=== PATIENT | male | born 1940 | race Caucasian/White ===

== ENCOUNTER 2019-03-01 17:24 | Inpatient (IN) | payer MEDICARE ==
[2019-03-01] MEDS ORDERED: NALOXONE 0.4 MG/ML 1 ML VIAL IV PRN (19:00)
--- NOTE | 2019-03-01 19:00 | ED ---
SOB HPI - General Chief Complaint: Shortness of Breath Stated Complaint: pleural effusion Time Seen by Provider: 03/01/19 17:56 Source: patient, EMS Mode of arrival: EMS Limitations: no limitations - History of Present Illness Initial Comments: 78-year-old male patient presents to the emergency department today as a transfer from [facility]. Patient presented today for evaluation of shortness of breath increasing over the last 4-5 days. He was found to have large right-sided pleural effusion requiring drainage however specialist was un available at the originating facility. Patient has history of right-sided pleural effusion since December which he has had drained twice in the last 6 weeks. Patient is unsure why the effusions keep occurring. He states that his breathing is currently improved with oxygen. He denies any pain to the chest. Denies any fever or chills with this. Denies any other symptoms or concerns. Patient denies any recent rash, abdominal pain, nausea, vomiting, diarrhea, constipation, back pain, numbness, tingling, dizziness, weakness, hematuria, dysuria, urinary urgency, urinary frequency, headache, visual changes, or any other complaints. - Related Data Home Medications Medication Instructions Recorded Confirmed Diltiazem HCl 30 mg PO TID 03/01/19 03/01/19 Famotidine [Pepcid] 20 mg PO AC-BID 03/01/19 03/01/19 Folic Acid 0.8 mg PO DAILY 03/01/19 03/01/19 Furosemide [Lasix] 40 mg PO BID PRN 03/01/19 03/01/19 Melatonin 5 mg PO HS 03/01/19 03/01/19 Metoprolol Tartrate [Lopressor] 12.5 mg PO BID PRN 03/01/19 03/01/19 Multivitamins, Thera [Multivitamin 1 tab PO DAILY 03/01/19 03/01/19 (formulary)] Vitamin B Complex/Folic Acid/Vit C 1 tab PO DAILY 03/01/19 03/01/19 Warfarin [Coumadin] 2.5 mg PO DAILY 03/01/19 03/01/19 Allergies Allergy/AdvReac Type Severity Reaction Status Date / Time No Known Allergies Allergy Verified 03/01/19 18:15 Review of Systems ROS Statement: Those systems with pertinent positive or pertinent negative responses have been documented in the HPI. ROS Other: All systems not noted in ROS Statement are negative. Past Medical History Past Medical History: Chest Pain / Angina, Eye Disorder, Myocardial Infarction ([place]), Pneumonia, Pulmonary Embolus ([place]) Additional Past Medical History / Comment(s): Thoracentesis X 2, History of Any Multi-Drug Resistant Organisms: None Reported Past Surgical History: Cardiac Ablation Additional Past Surgical History / Comment(s): Eye surgery. Past Psychological History: No Psychological Hx Reported Smoking Status: Former smoker Past Alcohol Use History: Occasional Past Drug Use History: None Reported General Exam Limitations: no limitations General appearance: alert, in no apparent distress, other (Physical well- developed, well-nourished elderly male patient in no acute distress. Vital signs upon presentation are temperature 98.1F, pulse 76, respirations 16, blood pressure 95/69, pulse ox 99% on room air.) Eye exam: Present: normal appearance, PERRL, EOMI. Absent: scleral icterus, conjunctival injection, periorbital swelling ENT exam: Present: normal exam, normal oropharynx, mucous membranes moist Respiratory exam: Present: decreased breath sounds (On the right side), other (Clear lung sounds on the left). Absent: normal lung sounds bilaterally, respiratory distress, wheezes, rales, rhonchi, stridor Cardiovascular Exam: Present: regular rate, normal rhythm, normal heart sounds. Absent: systolic murmur, diastolic murmur, rubs, gallop, clicks GI/Abdominal exam: Present: soft, normal bowel sounds. Absent: distended, tend erness, guarding, rebound, rigid Extremities exam: Present: normal inspection, full ROM, normal capillary refill, other (No edema). Absent: tenderness, pedal edema, joint swelling, calf tenderness Neurological exam: Present: alert, oriented X3, CN II-XII intact Psychiatric exam: Present: normal affect, normal mood Skin exam: Present: warm, dry, intact, normal color. Absent: rash Course Vital Signs 03/01/19 17:32 Temperature 98.1 F Pulse Rate 76 Respiratory 16 Rate Blood Pressure 95/69 O2 Sat by Pulse 99 Oximetry Medical Decision Making - Medical Decision Making 78-year-old male patient presented to the emergency department today for evaluation as a transfer from [facility] for a large right-sided pleural effusion requiring drainage. Physical examination did reveal decreased lung sounds on the right. Patient oxygen saturation is 95% on 2 L. He is currently in no respiratory distress. Labs reviewed from [facility] and showed a normal white blood cell count at 7.1. INR is 4.78, patient did receive 10 mg of vitamin K IV piggyback at [facility]. Troponin negative. We'll admit to the hospital for further evaluation and consult interventional radiology for drainage. I did discuss plan with the patient, he is agreeable. Disposition Clinical Impression: Recurrent right pleural effusion Disposition: ADMITTED IP TO THIS [facility] Condition: Serious Referrals: Natalio Salinas MD [Primary Care Provider] - 1-2 days Decision to Admit Reason: Admit from EC Decision Date: 03/01/19 Decision Time: 19:00
[2019-03-01] MEDS ORDERED: METOPROLOL TARTRATE 12.5 MG TAB PO PRN (19:02)
[2019-03-01] MEDS ORDERED: FUROSEMIDE 40 MG TAB PO PRN (19:02)
[2019-03-01] MEDS: MELATONIN 5 MG TABLET PO SCH (22:38)
[2019-03-01] MEDS: DILTIAZEM ORAL 30 MG TAB PO SCH (22:47)
[2019-03-02] MEDS: FOLIC ACID 1 MG TAB PO SCH (08:44)
[2019-03-02] MEDS: DILTIAZEM ORAL 30 MG TAB PO SCH ×3 (08:44→21:33)
[2019-03-02] MEDS: MULTIVITAMINS, THERA 1 EACH TAB PO SCH (08:44)
[2019-03-02] MEDS: FAMOTIDINE 20 MG TAB PO SCH ×2 (08:44→16:37)
[2019-03-02 08:59] LABS: INR 2.3 (<1.2); Prothrombin Time 22.3 sec (9.0-12.0)
[2019-03-02] MEDS ORDERED: ASCORBIC ACID PO SCH (09:00)
[2019-03-02] MEDS ORDERED: VITAMIN B COMPLEX PO SCH (09:00)
[2019-03-02] MEDS ORDERED: FOLIC ACID PO SCH (09:00)
[2019-03-02 09:09] LABS: ALT 36 U/L (21-72); AST 45 U/L (17-59); Albumin 3.5 g/dL (3.5-5.0); Alkaline Phosphatase 60 U/L (38-126); Anion Gap 7 mmol/L; Blood Urea Nitrogen 11 mg/dL (9-20); Carbon Dioxide 27 mmol/L (22-30); Chloride 104 mmol/L (98-107); Glucose 77 mg/dL (74-99); Potassium 3.4 mmol/L (3.5-5.1); Sodium 138 mmol/L (137-145); Total Bilirubin 2.2 mg/dL (0.2-1.3); Total Protein 6.5 g/dL (6.3-8.2)
[2019-03-02] MEDS ORDERED: PHYTONADIONE ORAL 5 MG/5 ML ORAL.SYRG PO STA (10:58)
--- NOTE | 2019-03-02 13:04 | US ---
EXAMINATION TYPE: US chest DATE OF EXAM: 03/02/2019 COMPARISON: NONE CLINICAL HISTORY: right pleural effusion. TECHNIQUE: Targeted ultrasound of the posterior lower EXAM MEASUREMENTS: Right Pleural Effusion pocket size: 6.9 cm Right skin surface to fluid distance: 2.7 cm Right side marked for possible thoracentesis outside the dept. Pulmonologists are able to review the images in the patient?s EMR. IMPRESSIONS: RIGHT-SIDED PLEURAL EFFUSION.
--- NOTE | 2019-03-02 19:06 | CONS ---
CONSULTATION This is a pulmonary/critical care consultation. DATE OF SERVICE: 03/02/2019 This is a patient who apparently presented to the emergency room here from [facility] via EMS for shortness of breath. He was apparently transferred here because they had nobody there that could drain the patient's chest. He apparently had a right-sided pleural effusion. Anyway, for the last couple days prior to admission, maybe 4 5 or so, he has had progressive increasing shortness of breath. For that reason, he went into the emergency room at [facility] was found to have a large right-sided pleural effusion and was transferred here to [facility]. The patient has had a couple of drainage procedures. I know I did 1 of them maybe 2. I believe we told him that the fluid reoccurred because of heart failure, although I do not have my office notes to know that for a fact. He denies any fever, chills. He is not coughing. Not producing any phlegm. No chest pain or chest discomfort. No GI or complaints. Actually looks relatively comfortable. He is sitting in bed. Oxygen in place. He is sitting upright in bed. His is with him. He does sort of remember me, but not fully. I believe my partner may have drained him once or attempted to drain him once but I am not totally sure about that. HOME MEDICATIONS: Include diltiazem, famotidine, folic acid, Lasix, melatonin, metoprolol, multivitamins, vitamin B complex, and warfarin. ALLERGIES: Denied. MEDICAL HISTORY: Chest pain/angina pectoris, myocardial infarction, pneumonia, pulmonary embolism, recurrent pleural effusion. SURGICAL HISTORY: Includes among other things a thoracentesis x2 and cardiac ablation. He has also had some eye surgery. SOCIAL HISTORY: Positive for previous tobacco use. He does not smoke currently. He drinks occasionally. No illicit drug use. FAMILY HISTORY: Not documented. REVIEW OF SYSTEMS: CONSTITUTIONAL: Negative. NEUROLOGIC: Negative. HEENT negative. CARDIOVASCULAR negative. PULMONARY: Shortness of breath. GI negative. negative. RHEUMATOLOGIC negative. IMMUNOLOGIC negative. ENDOCRINOLOGICAL: Negative. DERMATOLOGIC negative. PHYSICAL EXAMINATION: VITAL SIGNS: Current vital signs are reviewed. Temperature is 97.5, heart rate 77, respiratory rate 15, blood pressure 94/58. Mean 70, 2 L saturation 99%. Appears in no acute distress. HEENT examination is grossly unremarkable. Mucous membranes are moist. Nasal O2 in place. NECK: Supple. Full range of motion. No adenopathy or thyromegaly. Neck veins are flat. CARDIOVASCULAR: Examination reveals distant heart sounds. Regular rhythm and rate. Heart rate 77. No distinct murmur noted. LUNGS: Some significantly diminished breath sounds on the right. There is dullness at the right base. Left lung is clear. No wheezes, rhonchi, or crackles on the left side. ABDOMEN: Soft. Bowel sounds are heard. EXTREMITIES are intact. No significant cyanosis, clubbing, or edema. SKIN without rash. NEUROLOGIC examination is brief but nonfocal. LABS: Reviewed. He has got a PT of 22.3, INR 2.3. Sodium 138, potassium 3.4, chloride 104, CO2 27, anion gap is 7, which is normal. BUN and creatinine were 11 and 0.74. Total bilirubin is 2.2. No x-rays available. Ultrasound was ordered but not done as yet. Medications are reviewed. He is on Cardizem, famotidine, folic acid, Lasix, melatonin, metoprolol, multivitamins, Narcan. He got some vitamin K in the emergency room. We gave him some additional vitamin K today. ASSESSMENT: 1. Right-sided pleural effusion, recurrent. 2. History of angina. 3. Myocardial infarction. 4. Pneumonia. 5. Pulmonary embolism. 6. Status post cardiac ablation. 7. Thoracentesis thus far x2. PLAN: The patient's office notes will be reviewed. This will remind me as to why I thought he had a pleural effusion. We will also be able to hopefully load a chest x-ray. An ultrasound was ordered as well. In addition, he will have a daily PT/INR and he got some additional vitamin K as well. Additional recommendations and suggestions are forthcoming. Interventional Radiology was consulted to do thoracentesis. Either they will do it or I will do it. Additional recommendations and suggestions are forthcoming. He is in no distress at the current time. MMODL / IJN: [id number] /
[2019-03-02] MEDS: MELATONIN 5 MG TABLET PO SCH (21:32)
--- NOTE | 2019-03-02 22:56 | P.HPIM ---
History of Present Illness H&P Date: 03/02/19 Chief Complaint: Shortness of breath Mr. Begum is a 78-year-old male with a past medical history of congestive heart failure with ejection fraction of 20%, AICD placement, pulmonary embolism, myocardial infarction transferred from [facility] for large right-sided pleural effusion. Patient states that he has history of chronic right-sided pleural effusion and got thoracentesis done couple of times in December with 1 and 1.5 L of fluid removed. He follows with Dr. Hayes. He states that over the past 4-5 days his difficulty in breathing was worsening and yesterday he went to [facility]. There he was told that there is no specialist to drain the fluid out and so sent him here. Currently rates unsure why the patient has recurrent pleural effusions. Patient denies having any chest pain, no fever chills or rigors. Patient denies having any abdominal pain nausea vomiting or diarrhea. Patient denies having any tingling or numbness. No complaints of hematuria or dysuria. Patient states that he has congestive heart failure with ejection fraction of 20%, so he was told that he would not be a good candidate for pleurodesis. All 13 review of systems done and negative except for the ones mentioned above Review of Systems REVIEW OF SYSTEMS: PSYCH: No anxiety or depression NEURO:No c/o weakness of the extremties, No facial droop, No speech abnormalities. VASCULAR: No lower extremity swelling HEMATOLOGIC: No history of easy bleeding and bruising . No recent infections . RESPIRATORY: As per HPI IMMUNE: No recent infections INTEGUMENT: no rashes OPHTHALMOLOGIC: No blurry vision and no eye discharge : No dysuria or hematuria CARDIAC: No chest pain , shortness of breath , paroxysmal nocturnal dyspnea MUSCULOSKELETAL : No Aches or pains in the joints or muscles. GI: No abdominal pain, Nausea or vomiting. No constipation or diarrhea. Past Medical History Past Medical History: Chest Pain / Angina, Eye Disorder, Myocardial Infarction ([place]), Pneumonia, Pulmonary Embolus ([place]) Additional Past Medical History / Comment(s): Thoracentesis X 2, [place] X4 Last Myocardial Infarction Date:: 1989 History of Any Multi-Drug Resistant Organisms: None Reported Past Surgical History: AICD, Pacemaker Additional Past Surgical History / Comment(s): Eye surgery, Past Anesthesia/Blood Transfusion Reactions: No Reported Reaction Type of Cardiac Device: Permanent Pacemaker, AICD Device Placement Date:: 2015 Past Psychological History: No Psychological Hx Reported Smoking Status: Former smoker Past Alcohol Use History: Occasional Past Drug Use History: None Reported - Past Family History Mother Family Medical History: Unable to Obtain Brother(s) Family Medical History: Cancer Medications and Allergies Home Medications Medication Instructions Recorded Confirmed Type Diltiazem HCl 30 mg PO TID 03/01/19 03/01/19 History Famotidine [Pepcid] 20 mg PO AC-BID 03/01/19 03/01/19 History Folic Acid 0.8 mg PO DAILY 03/01/19 03/01/19 History Furosemide [Lasix] 40 mg PO BID PRN 03/01/19 03/01/19 History Melatonin 5 mg PO HS 03/01/19 03/01/19 History Metoprolol Tartrate [Lopressor] 12.5 mg PO BID PRN 03/01/19 03/01/19 History Multivitamins, Thera [Multivitamin 1 tab PO DAILY 03/01/19 03/01/19 History (formulary)] Vitamin B Complex/Folic Acid/Vit C 1 tab PO DAILY 03/01/19 03/01/19 History Warfarin [Coumadin] 2.5 mg PO DAILY 03/01/19 03/01/19 History Allergies Allergy/AdvReac Type Severity Reaction Status Date / Time No Known Allergies Allergy Verified 03/01/19 18:15 Physical Exam Vitals: Vital Signs Temp Pulse Pulse Resp BP BP Pulse Ox 03/02/19 07:23 97.5 F L 77 15 94/58 99 03/02/19 03:13 18 03/02/19 02:09 80 18 90/55 95 03/02/19 01:56 98.0 F 80 16 79/53 93 L 03/02/19 00:39 20 03/01/19 21:31 97.7 F 95 18 90/59 97 03/01/19 21:09 72 90/72 03/01/19 19:04 78 16 95/63 98 03/01/19 17:32 98.1 F 76 16 95/69 99 Intake and Output 03/01/19 03/02/19 03/02/19 22:59 06:59 14:59 Intake Total 600 Balance 600 Intake: Oral 600 Other: Voiding Method Toilet Toilet # Voids 1 2 Weight 62.596 kg GEN. APPEARANCE: alert, in no apparent distress, patient is thin HEAD EXAM: atraumatic, normocephalic, normal inspection EYE EXAM: normal appearance, PERRL, EOMI. Absent: scleral icterus, conjunctival injection, periorbital swelling ENT EXAM: normal exam, mucous membranes moist RESPIRATORY EXAM: Decreased breath sounds in the right lower lung field. Left lung normal breath sounds. CARDIOVASCULAR EXAM: S1 and S2 heard. No additional sounds. GI/ABDOMINAL EXAM: soft, normal bowel sounds. Absent: distended, tenderness, guarding, rebound, rigid EXTREMITIES EXAM: No edema. NEUROLOGICAL EXAM: alert, oriented X3, no focal neurological deficits PSYCHIATRIC EXAM: normal affect, normal mood SKIN EXAM: warm, dry, intact, normal color. Absent: rash Results CBC & Chem 7: 03/02/19 08:05 Labs: Abnormal Lab Results - Last 24 Hours (Table) 03/02/19 03/02/19 Range/Units 08:05 08:05 PT 22.3 H (9.0-12.0) sec INR 2.3 H (<1.2) Potassium 3.4 L (3.5-5.1) mmol/L Total Bilirubin 2.2 H (0.2-1.3) mg/dL Thrombosis Risk Factor Assmnt - Choose All That Apply Each Risk Factor Represents 3 Points: Age 75 years or older, History of DVT/PE Thrombosis Risk Factor Assessment Total Risk Factor Score: 6 Thrombosis Risk Factor Assessment Level: High Risk Assessment and Plan Assessment: ASSESSMENT Recurrent right sided pleural effusion Chronic Congestive systolic heart failure with ejection fraction of 20% History of pulmonary embolism on Coumadin Hypokalemia PLAN: Patient had an ultrasound of the chest showing right-sided pleural effusion. Pulmonary Dr. Hayes has been consulted for thoracentesis. As the patient's INR is 2.3, his Coumadin was put on hold currently, as we are planning for thoracentesis for tomorrow. Patient restarted on all his home medications. The treatment plan was discussed with him in detail. Further recommendations to follow depending on the progress of the patient.
[2019-03-03 08:28] LABS: INR 1.6 (<1.2); Prothrombin Time 15.8 sec (9.0-12.0)
[2019-03-03] MEDS: DILTIAZEM ORAL 30 MG TAB PO SCH ×3 (08:40→22:05)
[2019-03-03] MEDS: FAMOTIDINE 20 MG TAB PO SCH ×2 (08:40→17:01)
[2019-03-03] MEDS: MULTIVITAMINS, THERA 1 EACH TAB PO SCH (08:40)
[2019-03-03] MEDS: FOLIC ACID 1 MG TAB PO SCH (08:40)
[2019-03-03 08:45] LABS: Anion Gap 7 mmol/L; Blood Urea Nitrogen 13 mg/dL (9-20); Carbon Dioxide 26 mmol/L (22-30); Chloride 105 mmol/L (98-107); Glucose 86 mg/dL (74-99); Potassium 3.7 mmol/L (3.5-5.1); Sodium 138 mmol/L (137-145)
[2019-03-03 08:47] LABS: Basophils % (A) 0 %; Eosinophils # (A) 0.1 k/uL (0-0.7); Eosinophils % (A) 2 %; HCT 41.9 % (39.0-53.0); HGB 13.7 gm/dL (13.0-17.5); Lymphocytes # (A) 0.8 k/uL (1.0-4.8); Lymphocytes % (A) 17 %; MCH 31.1 pg (25.0-35.0); MCHC 32.6 g/dL (31.0-37.0); MCV 95.4 fL (80.0-100.0); Mean Platelet Volume 8.1; Monocytes # (A) 0.4 k/uL (0-1.0); Monocytes % (A) 8 %; Neutrophils # (A) 3.5 k/uL (1.3-7.7); Neutrophils % (A) 68 %; Platelet Count 144 k/uL (150-450); RBC 4.39 m/uL (4.30-5.90); RDW 13.3 % (11.5-15.5); WBC 5.1 k/uL (3.8-10.6)
--- NOTE | 2019-03-03 12:20 | P.PN ---
Subjective Progress Note Date: 03/03/19 Principal diagnosis: Right-sided pleural effusion juan Begum is a 78-year-old male with a past medical history of congestive heart failure with ejection fraction of 20%, AICD placement, pulmonary embolism, myocardial infarction transferred from [facility] for large right- sided pleural effusion. Patient states that he has history of chronic right- sided pleural effusion and got thoracentesis done couple of times in December with 1 and 1.5 L of fluid removed. He follows with Dr. Hayes. He states that over the past 4-5 days his difficulty in breathing was worsening and yesterday he went to [facility]. There he was told that there is no specialist to drain the fluid out and so sent him here. Currently rates unsure why the patient has recurrent pleural effusions. Patient denies having any chest pain, no fever chills or rigors. Patient denies having any abdominal pain nausea vomiting or diarrhea. Patient denies having any tingling or numbness. No complaints of hematuria or dysuria. Today the patient is lying in his bed comfortably. Appears to be no acute distress. Patient still has ongoing difficulty in breathing. He is comfortable on oxygen. On review of systems- Constitutional: No fever chills or rigors. Cardio vascular: denied any chest pain, palpitations Gastrointestinal : denied any nausea vomiting Pulmonary:ongoing SOB , no new changes Neurologic : denied any new focal deficits Active Medications Diltiazem HCl (Cardizem Oral) 30 mg PO TID [facility] Last Admin: 03/03/19 08:40 Dose: 30 mg Documented by: Famotidine (Pepcid) 20 mg PO AC-BID [facility] Last Admin: 03/03/19 08:40 Dose: 20 mg Documented by: Folic Acid (Folic Acid) 1 mg PO DAILY [facility] Last Admin: 03/03/19 08:40 Dose: 1 mg Documented by: Furosemide (Lasix) 40 mg PO BID PRN PRN Reason: >100 Melatonin (Melatonin) 5 mg PO HS [facility] Last Admin: 03/02/19 21:32 Dose: 5 mg Documented by: Metoprolol Tartrate (Lopressor) 12.5 mg PO BID PRN PRN Reason: >100 Multivitamins (Theragran) 1 each PO DAILY [facility] Last Admin: 03/03/19 08:40 Dose: 1 each Documented by: Naloxone HCl (Narcan) 0.2 mg IV Q2M PRN PRN Reason: Opioid Reversal Objective - Vital Signs Vital signs: Vital Signs Temp 98.1 F 03/03/19 07:14 Pulse 78 03/03/19 07:14 Resp 16 03/03/19 07:14 BP 94/59 03/03/19 07:14 Pulse Ox 95 03/03/19 07:14 Intake & Output 03/02/19 03/03/19 03/03/19 18:59 06:59 18:59 Intake Total 1020 200 Balance 1020 200 Intake: Oral 1020 200 Other: Voiding Method Toilet Toilet # Voids 1 1 - Exam GEN. APPEARANCE: alert, in no apparent distress, patient is thin HEAD EXAM: atraumatic, normocephalic, normal inspection EYE EXAM: No pallor, no icterus RESPIRATORY EXAM: Decreased breath sounds in the right lower lung field. Left lung normal breath sounds. CARDIOVASCULAR EXAM: S1 and S2 heard. No additional sounds. GI/ABDOMINAL EXAM: soft, normal bowel sounds. Absent: distended, tenderness, guarding, rebound, rigid EXTREMITIES EXAM: No edema. NEUROLOGICAL EXAM: alert, oriented X3, no focal neurological deficits PSYCHIATRIC EXAM: normal affect, normal mood - Labs CBC & Chem 7: 03/03/19 07:59 03/03/19 07:59 Labs: Abnormal Lab Results - Last 24 Hours (Table) 03/03/19 03/03/19 Range/Units 07:59 07:59 Plt Count 144 L (150-450) k/uL Lymphocytes # 0.8 L (1.0-4.8) k/uL PT 15.8 H (9.0-12.0) sec INR 1.6 H (<1.2) Assessment and Plan Assessment: ASSESSMENT Recurrent right sided pleural effusion Chronic Congestive systolic heart failure with ejection fraction of 20% - not in exacerbation History of pulmonary embolism on Coumadin Hypokalemia PLAN: Patient had an ultrasound of the chest showing right-sided pleural effusion. Pulmonary Dr. Hayes has been consulted for thoracentesis. As the patient's INR is 1.6 today, his Coumadin on hold, as we are planning for thoracentesis for tomorrow by IR. The treatment plan was discussed with him in detail. Further recommendations to follow depending on the progress of the patient.
--- NOTE | 2019-03-03 13:34 | P.PN ---
Subjective Progress Note Date: 03/03/19 Principal diagnosis: Right-sided pleural effusion, recurrent On 03/03/2019 patient seen in follow-up on medical surgical floor. He is awake and alert, he is on room air, he is ambulating about the room, tolerating activity well, no complex worsening dyspnea, no chest pain, he is on 2 L of oxygen intermittently. Afebrile, hemodynamically stable. Oral Lasix on an as- needed basis, yesterday patient received 10 mg of vitamin K for a possibility of right-sided thoracentesis, and today's INR is 1.6, interventional radiology has been consulted for a sonogram guided right-sided thoracentesis which will probably be scheduled sometime tomorrow, clinically patient is relatively asymptomatic, no acute complaints for now. Objective - Vital Signs Vital signs: Vital Signs Temp 98.1 F 03/03/19 07:14 Pulse 78 03/03/19 07:14 Resp 16 03/03/19 07:14 BP 94/59 03/03/19 07:14 Pulse Ox 95 03/03/19 07:14 Intake & Output 03/02/19 03/03/19 03/03/19 18:59 06:59 18:59 Intake Total 1020 440 Balance 1020 440 Intake: Oral 1020 440 Other: Voiding Method Toilet Toilet # Voids 1 1 - Exam GENERAL EXAM: Alert, active, comfortable in no apparent distress. HEAD: Normocephalic/atraumatic. EYES: Normal reaction of pupils, equal size. Conjunctiva pink, sclera white. NOSE: Clear with pink turbinates. THROAT: No erythema or exudates. NECK: No masses, no JVD, no thyroid enlargement, no adenopathy. CHEST: No chest wall deformity. Symmetrical expansion. LUNGS: Equal air entry with no crackles, wheeze, rhonchi or dullness. Dimin ished breath sounds at the right base CVS: Regular rate and rhythm, normal S1 and S2, no gallops, no murmurs, no rubs ABDOMEN: Soft, nontender. No hepatosplenomegaly, normal bowel sounds, no guarding or rigidity. EXTREMITIES: No clubbing, no edema, no cyanosis, 2+ pulses and upper and lower extremities. MUSCULOSKELETAL: Muscle strength and tone normal. SPINE: No scoliosis or deformity SKIN: No rashes CENTRAL NERVOUS SYSTEM: Alert and oriented -3. No focal deficits, tone is normal in all 4 extremities. PSYCHIATRIC: Alert and oriented -3. Appropriate affect. Intact judgment and insight. - Labs CBC & Chem 7: 03/03/19 07:59 03/03/19 07:59 Labs: Abnormal Lab Results - Last 24 Hours (Table) 03/03/19 03/03/19 Range/Units 07:59 07:59 Plt Count 144 L (150-450) k/uL Lymphocytes # 0.8 L (1.0-4.8) k/uL PT 15.8 H (9.0-12.0) sec INR 1.6 H (<1.2) Assessment and Plan Plan: Assessment: #1. Recurrent right-sided pleural effusion likely related to history of congestive heart failure with systolic dysfunction #2. Chronic CHF with systolic dysfunction, with underlying ejection fraction of 20% #3. History of pulmonary embolism on Coumadin #4. History of prior myocardial infarction #5. Radius pneumonia #6. Status post cardiac ablation Plan: We will continue holding the Coumadin, repeat INR in the morning, interventional radiology has been consulted for ultrasound-guided right-sided thoracentesis, clinically patient is relatively asymptomatic, no acute complaints, he is wearing his oxygen intermittently, he is tolerating ambulation, signs are stable, we'll see on as-needed basis I performed a history & physical examination of the patient and discussed their management with my nurse practitioner, Radha Martinez. I reviewed the nurse practitioner's note and agree with the documented findings and plan of care. Lung sounds are positive for diminished breath sounds at the right base. The findings and the impression was discussed with the patient. I attest to the documentation by the nurse practitioner. Time with Patient: Less than 30
[2019-03-03] MEDS: MELATONIN 5 MG TABLET PO SCH (22:06)
[2019-03-04 08:22] LABS: Basophils % (A) 1 %; Eosinophils # (A) 0.1 k/uL (0-0.7); Eosinophils % (A) 2 %; HCT 42.9 % (39.0-53.0); HGB 13.9 gm/dL (13.0-17.5); Lymphocytes # (A) 0.9 k/uL (1.0-4.8); Lymphocytes % (A) 16 %; MCH 30.8 pg (25.0-35.0); MCHC 32.4 g/dL (31.0-37.0); Mean Platelet Volume 8.4; Monocytes # (A) 0.5 k/uL (0-1.0); Monocytes % (A) 9 %; Neutrophils # (A) 3.8 k/uL (1.3-7.7); Neutrophils % (A) 68 %; Platelet Count 154 k/uL (150-450); RBC 4.51 m/uL (4.30-5.90); RDW 13.4 % (11.5-15.5); WBC 5.6 k/uL (3.8-10.6)
[2019-03-04 08:33] LABS: Anion Gap 6 mmol/L; Blood Urea Nitrogen 12 mg/dL (9-20); Calcium 9.1 mg/dL (8.4-10.2); Carbon Dioxide 26 mmol/L (22-30); Chloride 106 mmol/L (98-107); Glucose 77 mg/dL (74-99); Potassium 3.8 mmol/L (3.5-5.1); Sodium 138 mmol/L (137-145)
[2019-03-04] MEDS: FAMOTIDINE 20 MG TAB PO SCH ×2 (09:26→17:32)
[2019-03-04] MEDS: DILTIAZEM ORAL 30 MG TAB PO SCH ×2 (09:26→17:32)
[2019-03-04] MEDS: FOLIC ACID 1 MG TAB PO SCH (09:27)
[2019-03-04] MEDS: MULTIVITAMINS, THERA 1 EACH TAB PO SCH (09:27)
[2019-03-04 12:13] LABS: INR 1.5 (<1.2); Prothrombin Time 14.8 sec (9.0-12.0)
[2019-03-04 13:00] LABS: Total Protein 6.2 g/dL (6.3-8.2)
--- NOTE | 2019-03-04 14:11 | US ---
EXAMINATION TYPE: US thoracentesis DATE OF EXAM: 03/04/2019 COMPARISON: NONE HISTORY: Pleural effusion. FINDINGS: Maximal barrier technique was utilized. The skin overlying a suitable pocket of fluid was localized and the overlying skin prepped and draped. Lidocaine was used for local anesthesia. Ultras ound was used with sterile technique. A 5 English catheter over guide needle was advanced into the pl eural fluid collection using ultrasound guidance and the catheter advanced, needle removed. Approxim ately 1.8 liter(s) of serous fluid was removed. Catheter was withdrawn and hemostasis achieved. The re is no immediate complication. The patient discharged in stable condition without complication. IMPRESSION: STATUS POST ULTRASOUND GUIDED THORACENTESIS, POST PROCEDURE CHEST X-RAY PENDING. THIS FL OCEDURE WAS PERFORMED BY THE UNDERSIGNED. Specimen sent for laboratory analysis.
--- NOTE | 2019-03-04 14:24 | XR ---
EXAMINATION TYPE: XR chest 1V DATE OF EXAM: 03/04/2019 COMPARISON: NONE HISTORY: Post right thoracentesis FINDINGS: There are bilateral pleural effusions with cardiomegaly and bibasilar infiltrate. There is a diffuse interstitial pattern. Cardiac device seen. No sizable pneumothorax. Arthropathy of the shoulders. IMPRESSION: 1. No pneumothorax. 2. Correlate for CHF.
[2019-03-04 16:20] VITALS: BP 97/66; PULSE 84; RESP 16; TEMP 97.9
--- NOTE | 2019-03-04 16:48 | P.DS ---
Providers Date of admission: 03/03/19 14:17 Expected date of discharge: 03/04/19 Attending physician: Arya Bone MD Consults: 03/02/19 10:27 Consult Physician Stat Consulting Provider: Sina Hayes Reason/Comments: Thoracentesis Do you want consulting provider notified?: Yes Primary care physician: [facility] Course: Mr. Begum is a 78-year-old male with a past medical history of congestive heart failure with ejection fraction of 20%, AICD placement, pulmonary embolism, myocardial infarction transferred from [facility] for large right-s ided pleural effusion. Patient states that he has history of chronic right- sided pleural effusion and got thoracentesis done couple of times in December with 1 and 1.5 L of fluid removed. He follows with Dr. Hayes. He states that over the past 4-5 days his difficulty in breathing was worsening and yesterday he went to [facility]. There he was told that there is no specialist to drain the fluid out and so sent him here. Currently rates unsure why the patient has recurrent pleural effusions. Patient denies having any chest pain, no fever chills or rigors. Patient denies having any abdominal pain nausea vomiting or diarrhea. Patient denies having any tingling or numbness. No complaints of hematuria or dysuria. Patient states that he has congestive heart failure with ejection fraction of 20%, so he was told that he would not be a good candidate for pleurodesis. Patient had elevated INR at 2.3 at the time of admission. His Coumadin was put on hold. Repeat INR this morning was 1.5. INR was consulted for thoracocentesis. He had 1.7 L of fluid drained from the right side, pleural fluid is sent for analysis. Postprocedure chest x-ray was checked no evidence of pneumothorax or CHF. Pulmonary Dr. Hayes has cleared him for discharge. The patient is being discharged home in a stable condition, advised to follow with his primary care physician in 2-3 days. DISCHARGE DIAGNOSIS Recurrent right sided pleural effusion- s/p 1.7 lt of fluid removed Chronic Congestive systolic heart failure with ejection fraction of 20% History of pulmonary embolism on Coumadin Hypokalemia- resolved. PLAN: There are no changes made to the patient's medications. Advised to follow with PCP in 2-3 days. Patient Condition at Discharge: Serious Plan - Discharge Summary Discharge Rx Participant: Yes New Discharge Prescriptions: Continue Melatonin 5 mg PO HS Famotidine [Pepcid] 20 mg PO AC-BID Vitamin B Complex/Folic Acid/Vit C 1 tab PO DAILY Multivitamins, Thera [Multivitamin (formulary)] 1 tab PO DAILY Metoprolol Tartrate [Lopressor] 12.5 mg PO BID PRN PRN Reason: >100 Furosemide [Lasix] 40 mg PO BID PRN PRN Reason: >100 Warfarin [Coumadin] 2.5 mg PO DAILY Folic Acid 0.8 mg PO DAILY Diltiazem HCl 30 mg PO TID Discharge Medication List Diltiazem HCl 30 mg PO TID 03/01/19 [History] Famotidine [Pepcid] 20 mg PO AC-BID 03/01/19 [History] Folic Acid 0.8 mg PO DAILY 03/01/19 [History] Furosemide [Lasix] 40 mg PO BID PRN 03/01/19 [History] Melatonin 5 mg PO HS 03/01/19 [History] Metoprolol Tartrate [Lopressor] 12.5 mg PO BID PRN 03/01/19 [History] Multivitamins, Thera [Multivitamin (formulary)] 1 tab PO DAILY 03/01/19 [History] Vitamin B Complex/Folic Acid/Vit C 1 tab PO DAILY 03/01/19 [History] Warfarin [Coumadin] 2.5 mg PO DAILY 03/01/19 [History] Follow up Appointment(s)/Referral(s): [facility], [NON-STAFF] - 1-2 Days Natalio Salinas MD [Primary Care Provider] - 1-2 days (office closed please call office in am) Discharge Disposition: HOME SELF-CARE
[2019-03-04 18:37] LABS: Appearance,BF Clear; Color,BF Yellow; Nucleated Cells, Body Fluid 60 /uL; RBC, Body Fluid 300 /uL
[2019-03-04 18:38] LABS: Mononuclear WBC,Body Fluid 83 %; Polynuclear WBC,Body Fluid 17 %
[2019-03-04 23:15] LABS: Total Protein, Body Fluid 1701 mg/dL
--- NOTE | 2019-03-06 07:03 | CDI ---
Documentation Clarification Form Date: 03/06/19 From: Milvia Zhu Phone: If questions call Aziza Ricks @ [phone], Hours-8:30 am & 5 pm M- F Admit Date: 03/03/2019 2:17:00 PM Patient Name: Junior Begum Visit Number: [id number] Discharge Date: 03/04/2019 6:15:00 PM ATTENTION: The Clinical Documentation Specialists (CDI) and [facility] Coding Staff appreciate your assistance in clarifying documentation. Please respond to the clarification below the line at the bottom and electronically sign. The CDI & [facility] Coding staff will review the response and follow-up if needed. Please note: Queries are made part of the Legal Health Record. If you have any questions, please contact the author of this message via ITS. Dr. Raya Jenkins Conflicting documentation has been found in the medical record: Per 03/[address] Hayes - recurrent right-sided pleural effusion likely related to history of congestive heart failure with systolic dysfunction. Per your discharge summary - recurrent right sided pleural effusion. History/Risk Factors: Chronic systolic CHF, Hx PE, Hx CT Treatment: right side thoracentesis In your opinion, what is the most clinically appropriate diagnosis for this patient? Recurrent pleural effusion due to chronic systolic CHF Recurrent pleural effusion, unknown cause Other explanation of clinical findings Unable to determine (no explanation for clinical findings) Recurrent pleural effusion due to chronic systolic CHF____ MTDD
== END 2019-03-04 18:15 | disposition home health service (06) | DRG 292 ==
LOC: EC 17:24 → 4SSUR 19:37 → OBSVTOIN 03-03 14:17
PROVIDERS: ADMIT Internal Medicine; ATTEND Internal Medicine
PROC: 0W993ZX Drainage of Right Pleural Cavity, Percutaneous Approach, Diagnostic (ICD-10-PCS; principal; 2019-03-04)
DX: I50.22 Chronic systolic (congestive) heart failure (principal); J91.8 Pleural effusion in other conditions classified elsewhere; E87.6 Hypokalemia; R79.1 Abnormal coagulation profile; H57.9 Unspecified disorder of eye and adnexa; I25.2 Old myocardial infarction; Z79.01 Long term (current) use of anticoagulants; Z79.899 Other long term (current) drug therapy; Z86.711 Personal history of pulmonary embolism; Z87.01 Personal history of pneumonia (recurrent); Z87.891 Personal history of nicotine dependence; Z95.810 Presence of automatic (implantable) cardiac defibrillator; Z80.9 Family history of malignant neoplasm, unspecified
CPT/HCPCS: 32555; 71045; 76604; 80048; 80053; 82945; 83615; 83880; 84155; 84157; 85025; 85610; 87070; 87205; 88108; 88305; 89050; 99285

== ENCOUNTER 2019-12-02 11:26 | Observation (INO) | payer MEDICARE ==
--- NOTE | 2019-12-02 11:56 | ED ---
General Adult HPI - General Chief complaint: Shortness of Breath Stated complaint: fluid on lungs Time Seen by Provider: 12/02/19 11:30 Source: patient, family, RN notes reviewed, old records reviewed Mode of arrival: ambulatory Limitations: no limitations - History of Present Illness Initial comments: This is a 79-year-old male with past medical history significant multiple heart attacks. Patient states he also has had multiple pleural effusions and had them drained he said he has also had a procedure whereby they have adhered the lung to the chest wall. Patient states a week ago he was diagnosed with pneumonia by his doctor he still is on antibiotics. Patient states he went back for a checkup to see his doctor is want to come to the hospital because he believes he may be accumulating fluid. Patient states he still short of breath. Patient states his cough is much improved he denies any chest pain or palpitations. Patient denies any fever chills. Patient states the amount of sputum production is significantly less. Patient denies any swelling to legs or calf tenderness. Patient denies lightheadedness or dizziness. Patient denies any headache patient denies numbness weakness. - Related Data Home Medications Medication Instructions Recorded Confirmed Diltiazem HCl 30 mg PO TID 03/01/19 03/01/19 Famotidine [Pepcid] 20 mg PO AC-BID 03/01/19 03/01/19 Folic Acid 0.8 mg PO DAILY 03/01/19 03/01/19 Furosemide [Lasix] 40 mg PO BID PRN 03/01/19 03/01/19 Melatonin 5 mg PO HS 03/01/19 03/01/19 Metoprolol Tartrate [Lopressor] 12.5 mg PO BID PRN 03/01/19 03/01/19 Multivitamins, Thera [Multivitamin 1 tab PO DAILY 03/01/19 03/01/19 (formulary)] Vitamin B Complex/Folic Acid/Vit C 1 tab PO DAILY 03/01/19 03/01/19 Warfarin [Coumadin] 2.5 mg PO DAILY 03/01/19 03/01/19 Allergies Allergy/AdvReac Type Severity Reaction Status Date / Time No Known Allergies Allergy Verified 12/02/19 11:27 Review of Systems ROS Statement: Those systems with pertinent positive or pertinent negative responses have been documented in the HPI. ROS Other: All systems not noted in ROS Statement are negative. Past Medical History Past Medical History: Chest Pain / Angina, Eye Disorder, Myocardial Infarction ([place]), Pneumonia, Pulmonary Embolus ([place]) Additional Past Medical History / Comment(s): Thoracentesis X 2, [place] X4 Last Myocardial Infarction Date:: 1989 History of Any Multi-Drug Resistant Organisms: None Reported Past Surgical History: AICD, Pacemaker Additional Past Surgical History / Comment(s): Eye surgery, Past Anesthesia/Blood Transfusion Reactions: No Reported Reaction Type of Cardiac Device: Permanent Pacemaker, AICD Device Placement Date:: 2015 Past Psychological History: No Psychological Hx Reported Smoking Status: Former smoker Past Alcohol Use History: Occasional Past Drug Use History: None Reported - Past Family History Mother Family Medical History: Unable to Obtain Brother(s) Family Medical History: Cancer General Exam - General Exam Comments Initial Comments: GENERAL: Patient is well-developed and well-nourished. Patient is nontoxic and well- hydrated and is in mild distress. ENT: Neck is soft and supple. No significant lymphadenopathy is noted. Oropharynx is clear. Moist mucous membranes. Neck has full range of motion without eliciting any pain. EYES: The sclera were anicteric and conjunctiva were pink and moist. Extraocular movements were intact and pupils were equal round and reactive to light. Eyelids were unremarkable. PULMONARY: Patient has diminished breath sounds in the right base. CARDIOVASCULAR: There is a regular rate and rhythm without any murmurs gallops or rubs. ABDOMEN: Soft and nontender with normal bowel sounds. No palpable organomegaly was noted. There is no palpable pulsatile mass. SKIN: Skin is clear with no lesions or rashes and otherwise unremarkable. NEUROLOGIC: Patient is alert and oriented x3. Cranial nerves II through XII are grossly intact. Motor and sensory are also intact. Normal speech, volume and content. Symmetrical smile. MUSCULOSKELETAL: Normal extremities with adequate strength and full range of motion. LYMPHATICS: No significant lymphadenopathy is noted PSYCHIATRIC: Normal psychiatric evaluation. Limitations: no limitations Course Vital Signs 12/02/19 12/02/19 11:27 12:03 Pulse Rate 81 75 Respiratory 16 18 Rate Blood Pressure 103/68 109/70 O2 Sat by Pulse 94 L Oximetry Medical Decision Making - Medical Decision Making EKG shows sinus rhythm at a rate of 85 bpm NM interval 224 QRS is 184 Q-T intervals 452 QTC is 537. Patient is a left bundle branch block. Patient also has an occasional PAC. Chest x-ray shows a large pleural effusion. I spoke with Dr. Jones he agreed to admit the patient admitted the patient I consult pulmonology. - Lab Data Result diagrams: 12/02/19 12:15 12/02/19 12:15 Lab Results 12/02/19 12/02/19 12/02/19 Range/Units 12:15 12:15 12:15 WBC 9.8 (3.8-10.6) k/uL RBC 4.47 (4.30-5.90) m/uL Hgb 12.9 L (13.0-17.5) gm/dL Hct 39.6 (39.0-53.0) % MCV 88.5 (80.0-100.0) fL MCH 28.9 (25.0-35.0) pg MCHC 32.7 (31.0-37.0) g/dL RDW 13.8 (11.5-15.5) % Plt Count 441 (150-450) k/uL Neutrophils % 80 % Lymphocytes % 10 % Monocytes % 6 % Eosinophils % 1 % Basophils % 0 % Neutrophils # 7.9 H (1.3-7.7) k/uL Lymphocytes # 0.9 L (1.0-4.8) k/uL Monocytes # 0.6 (0-1.0) k/uL Eosinophils # 0.1 (0-0.7) k/uL Basophils # 0.0 (0-0.2) k/uL Sodium 133 L (137-145) mmol/L Potassium 3.6 (3.5-5.1) mmol/L Chloride 95 L (98-107) mmol/L Carbon Dioxide 24 (22-30) mmol/L Anion Gap 14 mmol/L BUN 12 (9-20) mg/dL Creatinine 0.63 L (0.66-1.25) mg/dL Est GFR (CKD-EPI)AfAm >90 (>60 ml/min/1.73 sqM) Est GFR (CKD-EPI)NonAf >90 (>60 ml/min/1.73 sqM) Glucose 103 H (74-99) mg/dL Plasma Lactic Acid Ramon 1.8 (0.7-2.0) mmol/L Calcium 8.9 (8.4-10.2) mg/dL Magnesium 1.8 (1.6-2.3) mg/dL Total Bilirubin 1.0 (0.2-1.3) mg/dL AST 40 (17-59) U/L ALT 16 (4-49) U/L Alkaline Phosphatase 114 (38-126) U/L Total Protein 7.9 (6.3-8.2) g/dL Albumin 3.6 (3.5-5.0) g/dL Disposition Clinical Impression: Dyspnea, Pleural effusion Disposition: ADMITTED IP TO THIS HOSP Referrals: Natalio Salinas MD [Primary Care Provider] - 1-2 days Time of Disposition: 13:02
--- NOTE | 2019-12-02 12:34 | XR ---
EXAMINATION TYPE: XR chest 2V DATE OF EXAM: 12/02/2019 COMPARISON: 03/04/2019 HISTORY: 79 year-old male shortness of breath, difficulty breathing TECHNIQUE: PA and lateral views FINDINGS: Left anterior chest wall ICD generator with right atrial and right ventricular leads. Heart upper garza its of normal in size. Diffuse interstitial prominence. Increasing, now moderate right pleural effusi on with underlying opacity. Trace effusion on the left. IMPRESSION: Increasing now moderate sized right pleural effusion with adjacent atelectasis and/or consolidation. Correlate to exclude a background of mild pulmonary vascular congestion.
[2019-12-02 12:42] LABS: Basophils % (A) 0 %; Eosinophils # (A) 0.1 k/uL (0-0.7); Eosinophils % (A) 1 %; HCT 39.6 % (39.0-53.0); HGB 12.9 gm/dL (13.0-17.5); Lymphocytes # (A) 0.9 k/uL (1.0-4.8); Lymphocytes % (A) 10 %; MCH 28.9 pg (25.0-35.0); MCHC 32.7 g/dL (31.0-37.0); MCV 88.5 fL (80.0-100.0); Mean Platelet Volume 7.8; Monocytes # (A) 0.6 k/uL (0-1.0); Monocytes % (A) 6 %; Neutrophils # (A) 7.9 k/uL (1.3-7.7); Neutrophils % (A) 80 %; Platelet Count 441 k/uL (150-450); RBC 4.47 m/uL (4.30-5.90); RDW 13.8 % (11.5-15.5); WBC 9.8 k/uL (3.8-10.6)
[2019-12-02 12:54] LABS: ALT 16 U/L (4-49); AST 40 U/L (17-59); African American GFR (CKD) >90 (>60 ml/min/1.73 sqM); Albumin 3.6 g/dL (3.5-5.0); Alkaline Phosphatase 114 U/L (38-126); Anion Gap 14 mmol/L; Blood Urea Nitrogen 12 mg/dL (9-20); Calcium 8.9 mg/dL (8.4-10.2); Carbon Dioxide 24 mmol/L (22-30); Chloride 95 mmol/L (98-107); Glucose 103 mg/dL (74-99); Magnesium 1.8 mg/dL (1.6-2.3); Non-African American GFR(CKD) >90 (>60 ml/min/1.73 sqM); Potassium 3.6 mmol/L (3.5-5.1); Sodium 133 mmol/L (137-145); Total Protein 7.9 g/dL (6.3-8.2)
[2019-12-02] MEDS ORDERED: SODIUM CHLORIDE 0.9% 1,000 ML IV ONE (13:03)
[2019-12-02 13:08] LABS: Partial Thromboplastin Time 45.1 sec (22.0-30.0); Prothrombin Time 62.3 sec (9.0-12.0)
[2019-12-02 13:23] LABS: INR 6.1 (<1.2)
[2019-12-02] MEDS ORDERED: HYDROcodone/APAP 5-325MG 1 EACH TAB PO PRN (13:59)
[2019-12-02] MEDS ORDERED: HYDROmorphone 0.5 MG/0.5 ML SYRINGE IVP PRN (13:59)
[2019-12-02] MEDS ORDERED: ACETAMINOPHEN TAB 500 MG TAB PO PRN (14:00)
[2019-12-02] MEDS ORDERED: RX INFO: IV CONTRAST WAS GIVEN 1 EACH MISC MISCELLANE PRN (14:50)
[2019-12-02] MEDS ORDERED: PHYTONADIONE ORAL 5 MG/5 ML ORAL.SYRG PO STA (14:56)
--- NOTE | 2019-12-02 15:01 | P.CNPUL ---
History of Present Illness Consult date: 12/02/19 Reason for consult: pleural effusion History of present illness: This is a 79-year-old male patient was referred to us for a right-sided pleural effusion and shortness of breath. The patient is known to have CAD, CHF, history of pacemaker insertion and his been on long-term anticoagulation for a clotting disorder. Has been on warfarin for more than 30 years. My initial encounter with this patient was back in January 2019 at [facility]. At that time the patient the pleural effusion. I drained the pleural fluid and the fluid was a transudate. Note that back then the patient had a moderate-sized right-sided pleural effusion. CAT scan of the chest showed and confirmed the findings. His troponin was negative. His BNP level was 8000. He did have history of drinking drinking approximately 6-8 beers on a daily basis. He has stopped drinking around 2 years ago. The patient did have some changes of chronic liver disease on his CAT scan of the chest. In any rate, the fluid was a transudate, the patient had another drainage procedure and [facility] by interventional radiology. The fluid cytology was again negative. Ultimately, the patient underwent a thoracoscopy with pleurodesis and this was d one by Dr. Torres at [facility]. Note that the patient has CHF with an ejection fraction of 20%. He has an AICD in place. He is known to have COPD and previous history of [place]. He is coming in for similar complaints of increased shortness of breath. Chest x-ray shows a moderate-sized right-sided pleural effusion. INR today is at 6.1. He takes Lasix orally. He takes 40 mg on a daily basis. Review of Systems Constitutional: Reports fatigue Eyes: denies as per HPI, denies blurred vision, denies bulging eye, denies decreased vision, denies diplopia, denies discharge, denies dry eye, denies irritation, denies itching, denies pain, denies photophobia, denies loss of peripheral vision, denies loss of vision, denies tunnel vision/blind spots Ears: deny: decreased hearing, ear discharge, earache, tinnitus Ears, nose, mouth and throat: Denies headache, Denies sore throat Cardiovascular: Reports decreased exercise tolerance, Reports dyspnea on e xertion Respiratory: Reports dyspnea Gastrointestinal: Reports as per HPI Genitourinary: Reports as per HPI Musculoskeletal: Reports as per HPI Musculoskeletal: absent: ankle pain, ankle stiffness, ankle swelling Integumentary: Reports as per HPI Neurological: Reports as per HPI Psychiatric: Reports as per HPI Endocrine: Reports as per HPI, Reports fatigue Hematologic/Lymphatic: Reports as per HPI Allergic/Immunologic: Reports as per HPI Past Medical History Past Medical History: Chest Pain / Angina, Heart Failure (CHF with an ejection fraction of 20% and the patient has an AICD in place, history of pulmonary embolismClotting disorder maintained on long-term anticoagulation, history of recurrent left-sided pleural effusion post thoracentesis 2 and post thoracoscopy and pleurodesis), Eye Disorder, Myocardial Infarction ([place]), Pneumonia, Pulmonary Embolus ([place]) Additional Past Medical History / Comment(s): Thoracentesis X 2, [place] X4 Last Myocardial Infarction Date:: 1989 History of Any Multi-Drug Resistant Organisms: None Reported Past Surgical History: AICD, Pacemaker Additional Past Surgical History / Comment(s): Eye surgery, thoracentesis 2, T ALC pleurodesis of the right lung Past Anesthesia/Blood Transfusion Reactions: No Reported Reaction Type of Cardiac Device: Permanent Pacemaker, AICD Device Placement Date:: 2015 Past Psychological History: No Psychological Hx Reported Smoking Status: Former smoker Past Alcohol Use History: Occasional Past Drug Use History: None Reported - Past Family History Mother Family Medical History: Unable to Obtain Brother(s) Family Medical History: Cancer Medications and Allergies Home Medications Medication Instructions Recorded Confirmed Type Folic Acid 0.8 mg PO DAILY 03/01/19 12/02/19 History Furosemide [Lasix] 40 mg PO DAILY 03/01/19 12/02/19 History Warfarin [Coumadin] 2.5 mg PO DAILY 03/01/19 12/02/19 History Cephalexin [Keflex] 500 mg PO Q8HR 12/02/19 12/02/19 History Diltiazem HCl [Cardizem] 90 mg PO BID 12/02/19 12/02/19 History Docusate [Colace] 100 mg PO DAILY 12/02/19 12/02/19 History Melatonin 10 mg PO HS 12/02/19 12/02/19 History Allergies Allergy/AdvReac Type Severity Reaction Status Date / Time No Known Allergies Allergy Verified 12/02/19 13:23 Physical Exam Vitals: Vital Signs Temp Pulse Pulse Resp BP BP BP 12/02/19 14:01 97.4 F L 84 18 101/63 101/63 12/02/19 12:03 75 18 109/70 12/02/19 11:27 81 16 103/68 Pulse Ox 12/02/19 14:01 95 12/02/19 12:03 12/02/19 11:27 94 L Intake and Output 12/01/19 12/02/19 12/02/19 22:59 06:59 14:59 Other: Weight 59.874 kg The patient appeared well nourished and normally developed. Vital signs as documented. Head exam is unremarkable. No scleral icterus or corneal arcus noted. Neck is without jugular venous distension, thyromegaly, or carotid bruits. Carotid upstrokes are brisk bilaterally. Lungs the patient has diminished breath on the right lung base. The patient also has a AICD pocket over the left anterior chest area.. Cardiac exam reveals the PMI to be normally sized and situated. Rhythm is regular. First and second heart sounds normal. No murmurs, rubs or gallops. Abdominal exam reveals normal bowel sounds, no masses, no organomegaly and no aortic enlargement. Extremities are nonedematous and both femoral and pedal pulses are normal.Examination of the skin revealed no evidence of significant rashes, suspicious appearing nevi or other concerning lesions. Neurologically the patient is awake and alert and there is no focal neurological deficits. Results - Laboratory Findings CBC and BMP: 12/02/19 12:15 12/02/19 12:15 PT/INR, D-dimer PT 62.3 sec (9.0-12.0) H 12/02/19 12:15 INR 6.1 (<1.2) H* 12/02/19 12:15 Abnormal lab findings: Abnormal Labs 12/02/19 12/02/19 12/02/19 12:15 12:15 12:15 Hgb 12.9 L Neutrophils # 7.9 H Lymphocytes # 0.9 L PT 62.3 H INR 6.1 H* APTT 45.1 H Sodium 133 L Chloride 95 L Creatinine 0.63 L Glucose 103 H - Diagnostic Findings Chest x-ray: image reviewed Assessment and Plan Plan: 1 recurrent right-sided pleural effusion post thoracentesis 2, post talc pleurodesis, the patient had negative fluid cytology and the fluid was a transudate on previous evaluations 2 shortness of breath secondary to above 3 CHF with an ejection fraction of less than 20% and the patient has an AICD in place 4 CAD with previous [place] 5 questionable history of liver cirrhosis 6 supratherapeutic INR while on Coumadin 7 history of pulmonary embolism and history of clotting disease maintained on anticoagulation with warfarin for more than 30 years 8 former smoking and drinking Plan Proceed with a CAT scan of the chest to evaluate this right-sided pleural effusion and see if it's loculated or not and assess his ability to be drained knowing that the patient has undergone a pleurodesis Give 5 mg of vitamin K and repeat PT/INR in the morning Possible thoracentesis in a.m. if the fluid is not loculated and the INR level is less than 2 Obtain records from [facility] regarding his thoracic interventions The echo will be repeated
[2019-12-02] MEDS: PANTOPRAZOLE 40 MG TABLET PO SCH (15:43)
[2019-12-02] MEDS: CEPHALEXIN 500 MG CAP PO SCH ×2 (15:43→22:42)
[2019-12-02] MEDS: DILTIAZEM ORAL 30 MG TAB PO SCH ×2 (15:43→19:32)
[2019-12-02] MEDS: DOCUSATE 100 MG CAP PO SCH (15:43)
--- NOTE | 2019-12-02 15:55 | CT ---
EXAMINATION TYPE: CT chest w con DATE OF EXAM: 12/02/2019 COMPARISON: X-ray 12/02/2019 HISTORY: right sided pleural effusion, possibly loculated CT DLP: 255.9 mGycm Automated exposure control for dose reduction was used. CONTRAST: CT scan of the chest is performed with IV Contrast, patient injected with 100 mL of Isovue 300. FINDINGS: LUNGS: There is biapical pleural thickening. There is a moderate to large right-sided pleural effusio n with compressive atelectasis. Small left pleural effusion. Areas of bilateral subsegmental consolid ation noted. Hyperdense area of consolidation involving the right lung base is a nonspecific finding may represent consolidated lung. MEDIASTINUM: There are no greater than 1 cm hilar or mediastinal lymph nodes. No pericardial effusi on is seen. The heart is enlarged. The aorta is of normal caliber. Coronary artery atherosclerotic c hanges are seen. The main pulmonary arteries enhance normally. Cardiac leads are noted. Suggestion of a cardiac device. There is a question of a small filling defect within the secondary branch the righ t pulmonary artery. Report called to the patient's nurse. OTHER: Hypertrophic and degenerative change of the spine noted. There is a chronic appearing abiola hayden deformity of the superior endplate of a vertebral segment of the thoracolumbar junction. Numerou s gallstones are suspected and there is lobulation of liver correlate for hepatic cirrhosis. IMPRESSION: 1. Moderate to large sized right pleural effusion with compressive atelectasis. There is a small left pleural effusion. 2. There is a questionable defect within a secondary branch of the right pulmonary artery image 33. R ecommend a dedicated CTA of the chest to assess for small pulmonary embolism. Could represent a anter ior vascular web or chronic pulmonary embolism. 3. Severe cardiomegaly with coronary artery atherosclerotic disease. 4. Cholelithiasis. 5. Correlate for hepatic cirrhosis. 6. There is calcification along the anterior wall the left ventricle correlate for previous myocardia l infarction and myocardial calcinosis. 7. There is hyperdensity seen at the right lung base just above the diaphragm axial image 54 may repr esent hyperintense enhancing atelectasis. A small component of hemothorax or hemorrhage in the differ ential diagnosis. Correlate clinically.
[2019-12-02] MEDS: HEPARIN SODIUM,PORCINE 5,000 UNIT/ML 1 ML VIAL SQ SCH ×2 (19:32→19:33)
[2019-12-02] MEDS: MELATONIN 5 MG TABLET PO SCH (19:32)
[2019-12-02] MEDS: ALPRAZolam 0.25 MG TAB PO PRN (20:15)
[2019-12-02] MEDS ORDERED: FUROSEMIDE 10 MG/ML 4 ML VIAL IV SCH (21:00)
--- NOTE | 2019-12-02 22:59 | HP ---
HISTORY AND PHYSICAL DATE OF SERVICE: 12/02/2018 CHIEF COMPLAINT: Shortness of breath. HISTORY OF PRESENT ILLNESS: This 79-year-old gentleman with a past medical history of multiple medical problems including congestive heart failure with chronic systolic dysfunction, ejection fraction 20% cardiomyopathy, severe, recurrent right pleural effusion, being followed by Dr. Salinas in the outpatient setting was previously admitted last year and fluid was removed. Currently the patient is complaining of increased shortness of breath and the patient was found to have a mostly right-sided pleural effusion and the patient was monitored closely at this time. The patient also had previous history of MO also. Dr. Desai's evaluation in progress and chest CT scan was also done which showed moderate- sized right pleural effusion and defect was noted and severe cardiomegaly and cholelithiasis also noted. There is no history of fever, rigors. No history of headache, loss of consciousness, seizures at this time. PAST MEDICAL HISTORY: History of CHF, history of CAD, history of myocardial infarction. History of pulmonary embolus, history AICD, cardiac ablation, history of pacemaker. MEDICATIONS ARE: Reviewed include: 1. Melatonin 10 mg q.h.s. 2. Keflex 500 mg q.8 p.r.n. 3. Coumadin 2.5 mg daily. 4. Colace 100 mg daily. 5. Cardizem 90 mg b.i.d. 6. Lasix 40 mg p.o. daily. 7. Folic acid 0.8 mg daily. ALLERGIES: None. FAMILY HISTORY: Father had a colonoscopy. Otherwise, no history of stroke or heart disease. SOCIAL HISTORY: Previous history of smoking. No history of current smoking or alcohol. REVIEW OF SYSTEMS: ENT diminished vision. Diminished hearing. CARDIOVASCULAR: No angina or palpitations. RESPIRATORY: As mentioned earlier. GI no nausea or vomiting. no dysuria. Nervous system: No numbness or weakness. Allergy/Immunology: No asthma or hayfever. MUSCULOSKELETAL as mentioned earlier. DERMATOLOGY/ENDOCRINOLOGY: No history of diabetes or hypothyroidism. CONSTITUTIONAL: As mentioned earlier. DERMATOLOGY: Negative. RHEUMATOLOGY negative. PSYCHIATRY as mentioned earlier. PHYSICAL EXAMINATION: The patient is pulse 84, blood pressure 101/67, respiration 18, temperature 97.4, pulse ox 95 percent on room air skin: Normal. No allergy neck injury present is improved with cardiovascular system ejection systolic murmur with pansystolic murmur in the apical area, also present. Respiration pressure in the bases. A few scattered rhonchi and crackles, right more than the left. ABDOMEN: Soft, nontender. No mass. LEGS no edema, no swelling. No cyanosis. Nervous system: Higher functions as mentioned earlier, Moves all no focal motor or sensory deficits. LYMPHATICS: No lymph nodes palpable in the neck, axillae or groin. SKIN no ulcers, rashes or bleeding. JOINTS no active deforming arthropathy. LABS: WBC 9.2, hemoglobin 12.9. Otherwise, INR 6.1. Sodium 133. ASSESSMENT: 1. Right-sided pleural effusion recurrent with shortness of breath. 2. Congestive heart failure acute exacerbation with acute on chronic systolic dysfunction, ejection fraction 20% with cardiomyopathy. 3. Coumadin coagulopathy. 4. Hyponatremia. 5. Mild to moderate protein calorie malnutrition with BMI of 20.7. 6. Anemia of chronic disease. Hemoglobin 12.9. 7. History of coronary artery disease. 8. History of myocardial infarction. 9. History of pneumonia. 10.History of pulmonary embolism. 11.Coumadin monitoring. 12.History of previous recurrent right-sided pleural effusion. 13.History of AICD. 14.History of pacemaker. 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 RECOMMENDATIONS DISCUSSION: This 79-year-old gentleman who presented with multiple medical issues at this time, I recommend to continue current medications, symptomatic treatment. We will recommend to stop the Coumadin. Monitor PT, INR closely. Otherwise, vitamin K has been given otherwise and when the INR becomes less than or sub therapeutic we will recommend thoracocentesis. Closely follow with Dr. Desai. Continue with IV Lasix. I would also recommend Cardiology consultation also. The prognosis guarded because of multiple complex medical issues. MMODL / IJN: [id number] / [facility]ITALDamien
[2019-12-03 06:44] LABS: Basophils % (A) 0 %; Eosinophils # (A) 0.1 k/uL (0-0.7); Eosinophils % (A) 1 %; HCT 37.3 % (39.0-53.0); HGB 11.9 gm/dL (13.0-17.5); Lymphocytes # (A) 0.9 k/uL (1.0-4.8); Lymphocytes % (A) 11 %; MCH 28.4 pg (25.0-35.0); MCV 88.6 fL (80.0-100.0); Mean Platelet Volume 7.6; Monocytes # (A) 0.4 k/uL (0-1.0); Monocytes % (A) 5 %; Neutrophils # (A) 6.3 k/uL (1.3-7.7); Neutrophils % (A) 80 %; Platelet Count 363 k/uL (150-450); RBC 4.21 m/uL (4.30-5.90); WBC 7.9 k/uL (3.8-10.6)
[2019-12-03 06:56] LABS: INR 3.2 (<1.2); Prothrombin Time 31.4 sec (9.0-12.0)
[2019-12-03 07:00] LABS: African American GFR (CKD) >90 (>60 ml/min/1.73 sqM); Anion Gap 9 mmol/L; Blood Urea Nitrogen 10 mg/dL (9-20); Calcium 8.5 mg/dL (8.4-10.2); Carbon Dioxide 28 mmol/L (22-30); Chloride 96 mmol/L (98-107); Glucose 89 mg/dL (74-99); Non-African American GFR(CKD) >90 (>60 ml/min/1.73 sqM); Potassium 3.3 mmol/L (3.5-5.1); Sodium 133 mmol/L (137-145)
[2019-12-03 07:56] VITALS: RESP 18
[2019-12-03] MEDS: HEPARIN SODIUM,PORCINE 5,000 UNIT/ML 1 ML VIAL SQ SCH ×2 (08:17→20:31)
[2019-12-03] MEDS: PANTOPRAZOLE 40 MG TABLET PO SCH (08:17)
[2019-12-03] MEDS: DOCUSATE 100 MG CAP PO SCH (08:17)
[2019-12-03] MEDS: FOLIC ACID 1 MG TAB PO SCH (08:17)
[2019-12-03] MEDS ORDERED: FUROSEMIDE 40 MG TAB PO SCH (09:00)
--- NOTE | 2019-12-03 09:20 | P.CRDCN ---
History of Present Illness History of present illness: This is Alondra Dc PA-C dictating a consult on this patient The patient was interviewed and examined by me as well as by Dr. Adame Case discussed with Dr. Adame and he agrees with the plan of care HPI Patient is a 79-year-old male with a known history of CAD, multiple myocardial infarctions, and known ischemic cardiomyopathy status post ICD, recurrent pleural effusions, history of PE and clotting disorder on long-term anticoagulation with Coumadin, who presented with complaints of worsening shortness of breath. He is a patient of Dr. Castellon. He states for the last 6 weeks he has become progressively more short of breath with exertion. He also has a productive cough. He recently went to see his primary care doctor who said he may have been coming down with pneumonia. Denies any chest pain, orthopnea or PND. No dizziness or syncope. Upon presentation to the emergency department his EKG showed left bundle branch block morphology with first-degree AV block. Chest x-ray showed right-sided pleural effusion. Troponin was negative. Pulmonology has evaluated him and is planning for possible thoracentesis. Patient seen and examined resting in bed. Continues to have shortness of breath. No chest pain. ROS: No fevers, chills or rigors, Positive for cough no nausea, vomiting or diarrhea, no hematuria, dysuria, no musculoskeletal complaints, no strokes or seizures, no skin lesions. EXAMINATION: Patient is afebrile, pulse in the 70s, respirations 18, blood pressure in the 90s over 50s, oxygen saturation 93% on room air Patient seen and examined resting in bed, appears in no acute distress Breath sounds diminished on the right Heart is regular, soft systolic murmur audible No elevated JVD No lower extremity edema REVIEW OF LABS, ECG & MEDICAL DATA WBC 7.9, hemoglobin 11.9, platelets 363, INR 3.2, potassium 3.3, BUN 10, creatinine 0.71 Troponin negative 1 IMPRESSION / ASSESSMENT: Worsening shortness of breath secondary to recurrent right-sided pleural effusion Ischemic cardiomyopathy status post ICD History of CAD and multiple myocardial infarctions Chronic systolic congestive heart failure History of clotting disorder and pulmonary embolism, on long-term anticoagulation with Coumadin PLAN: Stop Cardizem and start metoprolol succinate 25 mg daily Stop IV Lasix and start oral Lasix 80 mg daily and add spironolactone 25 mg daily An echocardiogram has been ordered, awaiting results Past Medical History Past Medical History: Coronary Artery Disease (CAD), Chest Pain / Angina, Heart Failure, Eye Disorder, Myocardial Infarction (IN), Pneumonia, Pulmonary Embolus (PE) Additional Past Medical History / Comment(s): R side pleural effusions with thoracentesis x2/thorascopy with talc pleurodesis at [facility] per pt, EF 20%, recent pneumonia tx with ABX, 1985 pulmonary embolism, occasional back pain. Last Myocardial Infarction Date:: 1989 History of Any Multi-Drug Resistant Organisms: None Reported Past Surgical History: AICD, Cardiac Ablation, Pacemaker, Tonsillectomy Additional Past Surgical History / Comment(s): Thoroscopy with talc pleurodesis R lung, bilateral cataract removals. Past Anesthesia/Blood Transfusion Reactions: No Reported Reaction Additional Past Anesthesia/Blood Transfusion Reaction / Comment(s): Pt thinks he has received blood in past without reaction. Type of Cardiac Device: Permanent Pacemaker, AICD Device Placement Date:: 2015 Smoking Status: Former smoker - Past Family History Mother Family Medical History: No Reported History Brother(s) Family Medical History: Cancer Father Additional Family Medical History / Comment(s): Ben had a colostomy. Medications and Allergies Home Medications Medication Instructions Recorded Confirmed Type Folic Acid 0.8 mg PO DAILY 03/01/19 12/02/19 History Furosemide [Lasix] 40 mg PO DAILY 03/01/19 12/02/19 History Warfarin [Coumadin] 2.5 mg PO DAILY 03/01/19 12/02/19 History Cephalexin [Keflex] 500 mg PO Q8HR 12/02/19 12/02/19 History Diltiazem HCl [Cardizem] 90 mg PO BID 12/02/19 12/02/19 History Docusate [Colace] 100 mg PO DAILY 12/02/19 12/02/19 History Melatonin 10 mg PO HS 12/02/19 12/02/19 History Allergies Allergy/AdvReac Type Severity Reaction Status Date / Time No Known Allergies Allergy Verified 12/02/19 13:23 Physical Exam Vitals: Vital Signs Temp Pulse Pulse Resp BP BP BP 12/03/19 07:00 97.4 F L 76 18 91/50 12/02/19 22:50 97.5 F L 79 16 96/65 12/02/19 20:00 97.6 F 81 92/54 12/02/19 14:01 97.4 F L 84 18 101/63 101/63 12/02/19 12:03 75 18 109/70 12/02/19 11:27 81 16 103/68 Pulse Ox 12/03/19 07:00 93 L 12/02/19 22:50 97 12/02/19 20:00 94 L 12/02/19 14:01 95 12/02/19 12:03 12/02/19 11:27 94 L Intake and Output 12/02/19 12/03/19 12/03/19 22:59 06:59 14:59 Intake Total 420 Output Total 100 Balance -100 420 Intake: Oral 420 Output: Urine 100 Other: # Voids 1 Weight 59.874 kg Results 12/03/19 05:52 12/03/19 05:52 Cardiac Enzymes 12/02/19 12/02/19 Range/Units 12:15 12:15 AST 40 (17-59) U/L Troponin I 0.012 (0.000-0.034) ng/mL Coagulation 12/02/19 12/03/19 Range/Units 12:15 05:52 PT 62.3 H 31.4 H (9.0-12.0) sec APTT 45.1 H (22.0-30.0) sec CBC 12/02/19 12/03/19 Range/Units 12:15 05:52 WBC 9.8 7.9 (3.8-10.6) k/uL RBC 4.47 4.21 L (4.30-5.90) m/uL Hgb 12.9 L 11.9 L (13.0-17.5) gm/dL Hct 39.6 37.3 L (39.0-53.0) % Plt Count 441 363 (150-450) k/uL Comprehensive Metabolic Panel 12/02/19 12/03/19 Range/Units 12:15 05:52 Sodium 133 L 133 L (137-145) mmol/L Potassium 3.6 3.3 L (3.5-5.1) mmol/L Chloride 95 L 96 L (98-107) mmol/L Carbon Dioxide 24 28 (22-30) mmol/L BUN 12 10 (9-20) mg/dL Creatinine 0.63 L 0.71 (0.66-1.25) mg/dL Glucose 103 H 89 (74-99) mg/dL Calcium 8.9 8.5 (8.4-10.2) mg/dL AST 40 (17-59) U/L ALT 16 (4-49) U/L Alkaline Phosphatase 114 (38-126) U/L Total Protein 7.9 (6.3-8.2) g/dL Albumin 3.6 (3.5-5.0) g/dL Current Medications Generic Name Dose Route Start Last Admin Trade Name Freq PRN Reason Stop Dose Admin Acetaminophen 500 mg 12/02/19 14:00 Tylenol Tab PO Q6HR PRN Fever and/ or Pain Hydrocodone Bitart/Acetaminophen 1 each 12/02/19 13:59 [place] 5-325 PO Q6HR PRN Pain Alprazolam 0.25 mg 12/02/19 14:00 12/02/19 20:15 Xanax PO 0.25 mg TID PRN Administration Anxiety Cephalexin 500 mg 12/02/19 16:00 12/02/19 22:42 Keflex PO 12/04/19 23:00 500 mg Q8HR ARIANNA Administration Docusate Sodium 100 mg 12/02/19 14:00 12/03/19 08:17 Colace PO 100 mg DAILY ARIANNA Administration Folic Acid 1 mg 12/03/19 09:00 12/03/19 08:17 Folic Acid PO 1 mg DAILY ARIANNA Administration Furosemide 40 mg 12/03/19 09:00 Lasix PO DAILY ARIANNA Heparin Sodium (Porcine) 5,000 unit 12/02/19 21:00 12/03/19 08:17 Heparin SQ 5,000 unit Q12HR ARIANNA Administration Hydromorphone HCl 0.5 mg 12/02/19 13:59 Dilaudid IVP Q6HR PRN Severe Pain Sodium Chloride 1,000 mls @ 20 mls/hr 12/02/19 13:03 12/02/19 13:29 Saline 0.9% IV 12/03/19 13:02 75 mls/hr .Q24H ONE Administration Melatonin 10 mg 12/02/19 21:00 12/02/19 19:32 Melatonin PO 10 mg HS ARIANNA Administration Metoprolol Succinate 25 mg 12/03/19 12:00 Toprol Xl PO DAILY ARIANNA Miscellaneous Information 1 each 12/02/19 14:50 Rx Info: Iv Contrast Was Given MISCELLANE 12/04/19 14:50 DAILY PRN Per Protocol Pantoprazole Sodium 40 mg 12/02/19 14:00 12/03/19 08:17 Protonix PO 40 mg AC-BRKFST ARIANNA Administration Spironolactone 25 mg 12/03/19 09:00 Aldactone PO DAILY ARIANNA Intake and Output 12/02/19 12/03/19 12/03/19 22:59 06:59 14:59 Intake Total 420 Output Total 100 Balance -100 420 Intake: Oral 420 Output: Urine 100 Other: # Voids 1 Weight 59.874 kg 12/03/19 05:52 12/03/19 05:52
[2019-12-03] MEDS: CEPHALEXIN 500 MG CAP PO SCH ×3 (09:41→23:14)
[2019-12-03] MEDS: SPIRONOLACTONE 25 MG TAB PO SCH (09:41)
[2019-12-03] MEDS: FUROSEMIDE 40 MG TAB PO SCH (09:41)
[2019-12-03] MEDS ORDERED: PHYTONADIONE ORAL 5 MG/5 ML ORAL.SYRG PO STA (10:01)
--- NOTE | 2019-12-03 10:08 | P.PN ---
Subjective Progress Note Date: 12/03/19 Principal diagnosis: recurrent right-sided pleural effusion post thoracentesis 2, post talc pleurodesis, the patient had negative fluid cytology and the fluid was a transudate on previous evaluations On 12/03/2019 patient seen in follow-up in the observation unit, he is awake a nd alert, in no acute distress, room air pulse ox is 93%, no complaints of chest pain, afebrile, slightly hypotensive this morning, with systolic in the 90s and diastolic in the 50s, cardiology is following and has discontinued since Cardize and transitioned the Lasix to oral Lasix. No worsening dyspnea, no significant cough or congestion, lung sounds reveal crackles at the left posterior base and diminished sounds over right lower lobe. On today's blood work patient's INR is 3.2 after receiving 5 mg of vitamin K yesterday, we will give the patient additional dose of vitamin K this morning and repeat blood work this afternoon ability of right-sided thoracentesis. Objective - Vital Signs Vital signs: Vital Signs Temp 97.4 F L 12/03/19 07:00 Pulse 76 12/03/19 07:00 Resp 18 12/03/19 07:00 BP 91/50 12/03/19 07:00 Pulse Ox 93 L 12/03/19 07:00 Intake & Output 12/02/19 12/03/19 12/03/19 18:59 06:59 18:59 Intake Total 420 Output Total 100 Balance -100 420 Weight 59.874 kg Intake: Oral 420 Output: Urine 100 Other: # Voids 1 - Exam GENERAL EXAM: Alert, slightly anxious, but very pleasant, 79-year-old white mal e, on room air, with a pulse ox of 94% comfortable in no apparent distress. HEAD: Normocephalic/atraumatic. EYES: Normal reaction of pupils, equal size. Conjunctiva pink, sclera white. NOSE: Clear with pink turbinates. THROAT: No erythema or exudates. NECK: No masses, no JVD, no thyroid enlargement, no adenopathy. CHEST: No chest wall deformity. Symmetrical expansion. LUNGS: left lower lobe crackles and diminished breath sounds over right lower lobe and dullness to percussion at the right posterior base CVS: Regular rate and rhythm, normal S1 and S2, no gallops, no murmurs, no rubs ABDOMEN: Soft, nontender. No hepatosplenomegaly, normal bowel sounds, no guarding or rigidity. EXTREMITIES: No clubbing, no edema, no cyanosis, 2+ pulses and upper and lower extremities. MUSCULOSKELETAL: Muscle strength and tone normal. SPINE: No scoliosis or deformity SKIN: No rashes CENTRAL NERVOUS SYSTEM: Alert and oriented -3. No focal deficits, tone is normal in all 4 extremities. PSYCHIATRIC: Alert and oriented -3. Appropriate affect. Intact judgment and insight. - Labs CBC & Chem 7: 12/03/19 05:52 12/03/19 05:52 Labs: Abnormal Lab Results - Last 24 Hours (Table) 12/02/19 12/02/19 12/02/19 Range/Units 12:15 12:15 12:15 RBC (4.30-5.90) m/uL Hgb 12.9 L (13.0-17.5) gm/dL Hct (39.0-53.0) % Neutrophils # 7.9 H (1.3-7.7) k/uL Lymphocytes # 0.9 L (1.0-4.8) k/uL PT 62.3 H (9.0-12.0) sec INR 6.1 H* (<1.2) APTT 45.1 H (22.0-30.0) sec Sodium 133 L (137-145) mmol/L Potassium (3.5-5.1) mmol/L Chloride 95 L (98-107) mmol/L Creatinine 0.63 L (0.66-1.25) mg/dL Glucose 103 H (74-99) mg/dL 12/03/19 12/03/19 12/03/19 Range/Units 05:52 05:52 05:52 RBC 4.21 L (4.30-5.90) m/uL Hgb 11.9 L (13.0-17.5) gm/dL Hct 37.3 L (39.0-53.0) % Neutrophils # (1.3-7.7) k/uL Lymphocytes # 0.9 L (1.0-4.8) k/uL PT 31.4 H (9.0-12.0) sec INR 3.2 H (<1.2) APTT (22.0-30.0) sec Sodium 133 L (137-145) mmol/L Potassium 3.3 L (3.5-5.1) mmol/L Chloride 96 L (98-107) mmol/L Creatinine (0.66-1.25) mg/dL Glucose (74-99) mg/dL Assessment and Plan Plan: assessment: 1 recurrent right-sided pleural effusion post thoracentesis 2, post talc pleurodesis, the patient had negative fluid cytology and the fluid was a transudate on previous evaluations 2 shortness of breath secondary to above 3 CHF with an ejection fraction of less than 20% and the patient has an AICD in place 4 CAD with previous IN 5 questionable history of liver cirrhosis 6 supratherapeutic INR while on Coumadin 7 history of pulmonary embolism and history of clotting disease maintained on anticoagulation with warfarin for more than 30 years 8 former smoking and drinking Plan: The patient additional 2 mg of oral vitamin K, repeat PT/INR at 1400 this afternoon, INR is less than 2 will proceed with right-sided thoracentesis, otherwise continue current medical treatment. This was discussed with the patient was agreeable to proceed I performed a history & physical examination of the patient and discussed their management with my nurse practitioner, Radha Martinez. I reviewed the nurse practitioner's note and agree with the documented findings and plan of care. Lung sounds are positive for diminished breath sounds right lung base. The findings and the impression was discussed with the patient. I attest to the documentation by the nurse practitioner. Time with Patient: Less than 30
[2019-12-03] MEDS ORDERED: Potassium Replacement Protocol 1 EACH MISC MISCELLANE PRN (11:11)
[2019-12-03] MEDS: METOPROLOL SUCCINATE (ER) 25 MG TAB.ER.24H PO SCH (11:47)
[2019-12-03 14:14] LABS: INR 2.3 (<1.2)
--- NOTE | 2019-12-03 14:31 | ECHOF ---
Referral Reason:assess LV function MEASUREMENTS -------- HEIGHT: 170.2 cm WEIGHT: 59.9 kg BP: IVSd: 0.8 cm (0.6 - 1.1) LVIDd: 6.5 cm (3.9 - 5.3) LVPWd: 1.0 cm (0.6 - 1.1) IVSs: 0.9 cm LVIDs: 6.4 cm LVPWs: 1.0 cm RVIDd: 3.0 cm (< 3.3) LAESV Index (A-L): 64.12 ml/m Ao Diam: 2.5 cm (2.0 - 3.7) LA Diam: 4.5 cm (2.7 - 3.8) AV Cusp: 1.4 cm (1.5 - 2.6) EPSS: 2.0 cm MV E Zohaib: 0.82 m/s MV DecT: 291 ms MV A Zohaib: 0.31 m/s MV E/A Ratio: 2.66 AV maxP.71 mmHg AV meanP.89 mmHg AR PHT: 167 ms RAP: 15.00 mmHg RVSP: 49.16 mmHg MV EF SLOPE: 65.42 mm/s (70 - 150) MV EXCURSION: 15.97 mm (> 18.000) FINDINGS -------- Sinus rhythm. Pacerwire seen in RV and RA. AICD This was a technically good study. The left ventricle is moderately dilated. Left ventricular wall thickness is normal. There is sev ere global hypokinesis of LV . Overall left ventricular systolic function is severely impaired with , an EF between 20 - 25 %. Increased LAP stage 3 Diastolic Dysfunction. The right ventricle is normal in size. LA is severely dilated >40 ml/m2 The right atrial size is normal. Aortic valve is trileaflet and is moderately thickened. There is mild aortic valve sclerosis. Pea k/mean gradient across the Aortic Valve is 12.71mmHg / 7.89mmHg. The mitral valve is normal. The mitral valve leaflets are mildly thickened. Bsbvylju-[id number] mi tral regurgitation is present. Mild tricuspid regurgitation present. There is moderate pulmonary hypertension. The right ventric ular systolic pressure, as measured by Doppler, is 49.16mmHg. There is no pulmonic regurgitation present. The aortic root size is normal. The inferior vena cava is mildly dilated. There is no pericardial effusion. CONCLUSIONS -------- 1. Sinus rhythm. 2. Pacerwire seen in RV and RA. 3. AICD 4. This was a technically good study. 5. The left ventricle is moderately dilated. 6. Left ventricular wall thickness is normal. 7. There is severe global hypokinesis of LV . 8. Overall left ventricular systolic function is severely impaired with, an EF between 20 - 25 %. 9. Increased LAP stage 3 Diastolic Dysfunction. 10. The right ventricle is normal in size. 11. LA is severely dilated >40 ml/m2 12. The right atrial size is normal. 13. Aortic valve is trileaflet and is moderately thickened. 14. There is mild aortic valve sclerosis. 15. Peak/mean gradient across the Aortic Valve is 12.71mmHg / 7.89mmHg. 16. The mitral valve is normal. 17. The mitral valve leaflets are mildly thickened. 18. Pddcwmbv-nf-wzxkge mitral regurgitation is present. 19. Mild tricuspid regurgitation present. 20. There is moderate pulmonary hypertension. 21. The right ventricular systolic pressure, as measured by Doppler, is 49.16mmHg. 22. There is no pulmonic regurgitation present. 23. The aortic root size is normal. 24. The inferior vena cava is mildly dilated. 25. There is no pericardial effusion. VAT CLEANER: Dania Bravo RDCS
[2019-12-03] MEDS: MELATONIN 5 MG TABLET PO SCH (20:30)
--- NOTE | 2019-12-03 21:47 | PN ---
PROGRESS NOTE DATE OF SERVICE: 12/03/2019 This 79-year-old gentleman who was admitted after right-sided pleural effusion also had elevated PT/INR, Coumadin coagulopathy. INR improved to 3.2 after vitamin K. No chest pain. No palpitations. No fever. PHYSICAL EXAMINATION: Alert and oriented x3. The pulse is 83, blood pressure 93/55, respiration 18, temperature 97.7, pulse ox 92% on room air. HEENT: Conjunctivae normal. NECK: No jugular venous distention. CARDIOVASCULAR SYSTEM: S1, S2 muffled. RESPIRATORY SYSTEM: Breath sounds diminished at the bases. A few scattered rhonchi on the right side. ABDOMEN: Soft, non-tender. NERVOUS SYSTEM: No focal deficit. LABS: INR 3.2, hemoglobin 11.9, sodium 133, potassium 3.3. ASSESSMENT: 1. Right-sided pleural effusion, recurrent, with shortness of breath. 2. Congestive heart failure, acute exacerbation, with acute on chronic systolic dysfunction, ejection fraction 20%, with cardiomyopathy. 3. Hypokalemia. 4. Coumadin coagulopathy. 5. Hyponatremia. 6. Mild to moderate protein-calorie malnutrition with a body mass index of 20.7. 7. Anemia of chronic disease. Hemoglobin 12.9. 8. History of coronary artery disease. 9. History of myocardial infarction. 10.History of pneumonia. 11.History of pulmonary embolus. 12.History of Coumadin monitoring. 13.Previous history of recurrent right-sided pleural effusion. 14.History of automated implantable cardioverter defibrillator. 15.History of pacemaker. 16.History of talc pleurodesis of the right lung. 17.Cholelithiasis on the CT scan. RECOMMENDATIONS AND DISCUSSION: I recommend to continue the current medications, continue symptomatic treatment. Otherwise, closely follow with Pulmonary and Cardiology. Monitor PT, INR closely. Chest CT showed moderate to large right pleural effusion with atelectasis. Further recommendations to follow. Will continue to monitor. Further recommendations to follow. MMODL / IJN: [id number] /
[2019-12-03] MEDS: ALPRAZolam 0.25 MG TAB PO PRN (22:20)
[2019-12-04 07:23] LABS: INR 1.6 (<1.2); Prothrombin Time 15.5 sec (9.0-12.0)
[2019-12-04 07:25] VITALS: TEMP 97.5
[2019-12-04 07:31] LABS: African American GFR (CKD) >90 (>60 ml/min/1.73 sqM); Anion Gap 6 mmol/L; Blood Urea Nitrogen 8 mg/dL (9-20); Calcium 8.3 mg/dL (8.4-10.2); Carbon Dioxide 27 mmol/L (22-30); Chloride 99 mmol/L (98-107); Glucose 80 mg/dL (74-99); Non-African American GFR(CKD) >90 (>60 ml/min/1.73 sqM); Potassium 3.4 mmol/L (3.5-5.1); Sodium 132 mmol/L (137-145)
[2019-12-04 07:36] LABS: HCT 34.5 % (39.0-53.0); HGB 11.2 gm/dL (13.0-17.5); MCH 28.5 pg (25.0-35.0); MCHC 32.3 g/dL (31.0-37.0); MCV 88.3 fL (80.0-100.0); Mean Platelet Volume 7.8; Platelet Count 318 k/uL (150-450); RBC 3.91 m/uL (4.30-5.90); RDW 13.9 % (11.5-15.5); WBC 4.6 k/uL (3.8-10.6)
[2019-12-04] MEDS: METOPROLOL SUCCINATE (ER) 25 MG TAB.ER.24H PO SCH (07:48)
[2019-12-04] MEDS: PANTOPRAZOLE 40 MG TABLET PO SCH (07:48)
[2019-12-04] MEDS: SPIRONOLACTONE 25 MG TAB PO SCH (07:48)
[2019-12-04] MEDS: FOLIC ACID 1 MG TAB PO SCH (07:48)
[2019-12-04] MEDS: HEPARIN SODIUM,PORCINE 5,000 UNIT/ML 1 ML VIAL SQ SCH (07:48)
[2019-12-04] MEDS: CEPHALEXIN 500 MG CAP PO SCH (07:48)
[2019-12-04] MEDS: FUROSEMIDE 40 MG TAB PO SCH (07:48)
[2019-12-04] MEDS: DOCUSATE 100 MG CAP PO SCH (07:48)
[2019-12-04 08:14] LABS: Basophils # (M) 0.05 k/uL (0-0.2); Eosinophils # (M) 0.18 k/uL (0-0.7); Lymphocytes # (M) 0.97 k/uL (1.0-4.8); Monocytes # (M) 0.23 k/uL (0-1.0); Neutrophils # (M) 3.17 k/uL (1.3-7.7); Neutrophils % (M) 69 %; Nucleated Red Blood Cells 0 /100 WBC (0-0); Total Cells Counted 100
[2019-12-04 08:25] LABS: Poikilocytosis (M) Present
--- NOTE | 2019-12-04 11:07 | P.PN ---
Subjective Progress Note Date: 12/04/19 On today's evaluation, the patient's INR is less than 2. We are going to proceed with a therapeutic thoracentesis of the right lung. This was postponed and the patient's Coumadin level was supratherapeutic. He was given vitamin K. He is known to have CAD, CHF, recurrent left-sided pleural effusion and he has undergone chemical/mechanical pleurodesis of the right lung. He is on long-term anticoagulation. 2 previous history of pulmonary embolism and clotting disorder. No fever. No chills. No chest pain. No other complaints otherwise. He is known to have CHF with an EF of less than 20%. His INR today is at 1.6. Objective - Vital Signs Vital signs: Vital Signs Temp 97.5 F L 12/04/19 07:00 Pulse 65 12/04/19 07:00 Resp 18 12/04/19 07:00 BP 95/57 12/04/19 07:00 Pulse Ox 96 12/04/19 07:00 Intake & Output 12/03/19 12/04/19 12/04/19 18:59 06:59 18:59 Intake Total 1600 Output Total 400 200 Balance 1200 -200 Intake: Oral 900 Other 700 Output: Urine 400 200 Other: # Voids 1 # Bowel Movements 1 - Exam GENERAL EXAM: Alert, slightly anxious, but very pleasant, 79-year-old white rosa manuel, on room air, with a pulse ox of 94% comfortable in no apparent distress. HEAD: Normocephalic/atraumatic. EYES: Normal reaction of pupils, equal size. Conjunctiva pink, sclera white. NOSE: Clear with pink turbinates. THROAT: No erythema or exudates. NECK: No masses, no JVD, no thyroid enlargement, no adenopathy. CHEST: No chest wall deformity. Symmetrical expansion. LUNGS: left lower lobe crackles and diminished breath sounds over right lower lobe and dullness to percussion at the right posterior base CVS: Regular rate and rhythm, normal S1 and S2, no gallops, no murmurs, no rubs ABDOMEN: Soft, nontender. No hepatosplenomegaly, normal bowel sounds, no guarding or rigidity. EXTREMITIES: No clubbing, no edema, no cyanosis, 2+ pulses and upper and lower extremities. MUSCULOSKELETAL: Muscle strength and tone normal. SPINE: No scoliosis or deformity SKIN: No rashes CENTRAL NERVOUS SYSTEM: Alert and oriented -3. No focal deficits, tone is normal in all 4 extremities. PSYCHIATRIC: Alert and oriented -3. Appropriate - Labs CBC & Chem 7: 12/04/19 06:20 12/04/19 06:20 Labs: Abnormal Lab Results - Last 24 Hours (Table) 12/03/19 12/04/19 12/04/19 Range/Units 13:44 06:20 06:20 RBC 3.91 L (4.30-5.90) m/uL Hgb 11.2 L (13.0-17.5) gm/dL Hct 34.5 L (39.0-53.0) % Lymphocytes # (Manual) 0.97 L (1.0-4.8) k/uL PT 22.0 H (9.0-12.0) sec INR 2.3 H (<1.2) Sodium 132 L (137-145) mmol/L Potassium 3.4 L (3.5-5.1) mmol/L BUN 8 L (9-20) mg/dL Calcium 8.3 L (8.4-10.2) mg/dL 12/04/19 Range/Units 06:20 RBC (4.30-5.90) m/uL Hgb (13.0-17.5) gm/dL Hct (39.0-53.0) % Lymphocytes # (Manual) (1.0-4.8) k/uL PT 15.5 H (9.0-12.0) sec INR 1.6 H (<1.2) Sodium (137-145) mmol/L Potassium (3.5-5.1) mmol/L BUN (9-20) mg/dL Calcium (8.4-10.2) mg/dL Assessment and Plan Plan: 1 recurrent right-sided pleural effusion post thoracentesis 2, post talc ple urodesis, the patient had negative fluid cytology and the fluid was a transudate on previous evaluations, consider related to CHF, consider hepatic hydrothorax. 2 shortness of breath secondary to above 3 CHF with an ejection fraction of less than 20% and the patient has an AICD in place 4 CAD with previous DE 5 questionable history of liver cirrhosis 6 supratherapeutic INR while on Coumadin 7 history of pulmonary embolism and history of clotting disease maintained on anticoagulation with warfarin for more than 30 years 8 former smoking and drinking Plan The CAT scan of the chest was noted. Note that the CAT scan of the chest also showed some evidence of liver cirrhosis and there was calcification along the anterior wall of the left ventricular indicating previous myocardial infarction. The patient has severe cardiomegaly and atherosclerosis. The usual The right- sided pleural effusion was confirmed. Coumadin was held. The patient was given vitamin K. Thoracentesis was done today. The patient will be going home once we confirmed that the procedure was done without any complications. Coumadin can be also resumed.
--- NOTE | 2019-12-04 11:10 | P.PCN ---
Date of Procedure: 12/04/19 Preoperative Diagnosis: Right-sided pleural effusion Postoperative Diagnosis: Same Procedure(s) Performed: Thoracentesis Anesthesia: local Surgeon: Merry Desai Estimated Blood Loss (ml): 0 Pathology: other Condition: stable Disposition: same day Indications for Procedure: dyspnea Operative Findings: Indication: Pleural effusion. A time-out was completed verifying correct patient, procedure, site, positioning, and implant (s) or special equipment if applicable. Ultrasound guidance was not used Patient was positioned, prepped and draped in usual sterile fashion. Lidocaine was used to anesthetize the area. A Thoracentesis catheter was introduced into the pleural space and fluid was removed. Blood loss was none. A chest x-ray was ordered to evaluate for pneumothorax. Total Fluid Removed: 2.2 L Color of Fluid: Turbid yellowish in color Fluid sent for appropriate laboratory tests. Patient tolerated the procedure well and there were no complications. The patient encountered some cough and after the procedure. This was ultimately go away. The chest x-rays to follow.
[2019-12-04 11:20] VITALS: BP 92/59; PULSE 82
--- NOTE | 2019-12-04 11:31 | XR ---
EXAMINATION TYPE: XR chest 1V DATE OF EXAM: 12/04/2019 COMPARISON: 12/02/2019 INDICATION: Postthoracentesis TECHNIQUE: Single frontal view of the chest is obtained. FINDINGS: The heart size is moderately prominent. The pulmonary vasculature is normal. Previous right pleural effusion is largely resolved. Some mild residual atelectasis may be at the rig ht lung base. No pneumothorax is evident. There is mild infiltrate at the left lung base. Correlate f or atelectasis. This area is worsening from comparison right IMPRESSION: 1. No pneumothorax postthoracentesis. Previous moderate right pleural effusion has resolved. 2. Mild subsegmental atelectasis likely present at the right lung base. 3. Developing infiltrate at the left lung base. Correlate for atelectasis or developing pneumonia.
[2019-12-04 14:39] LABS: Appearance,BF Hazy; Color,BF Yellow; Nucleated Cells, Body Fluid 115 /uL; RBC, Body Fluid 145 /uL
[2019-12-04 14:41] LABS: Mononuclear WBC,Body Fluid 93 %; Polynuclear WBC,Body Fluid 7 %; Total Cells Counted,Body Fluid 100
--- NOTE | 2019-12-04 16:09 | P.DS ---
Providers Date of admission: 12/03/19 11:40 Attending physician: Miles Lee Consults: 12/02/19 13:03 Consult Physician Urgent Consulting Provider: Merry Desai Consult Reason/Comments: Pleural effusion Do you want consulting provider notified?: Yes 12/02/19 18:45 Consult Physician Routine Consulting Provider: Tong Rodriguez Consult Reason/Comments: chf Do you want consulting provider notified?: Yes Primary care physician: [facility] Course: 73-year-old wasn't gentleman underwent a therapeutic thoracentesis today patient was admitted for acute hypoxic respiratory failure bilateral pleural effusions secondary to congestive heart failure patient had EF of less than 20%. Patient does have history of atrial fibrillation is on Coumadin INR is super therapeutic on admission which has come down to 1.6 today as complete and is being held for thoracentesis. Patient had pleurodesis in the past which does not appear to have worked for him. Patient will be discharged on same dose of Lasix as recommended by cardiology. Patient history of had a history of PE. Patient is also on Keflex for pneumonia patient completed a course of antibiotic therapy because of which Keflex will be discontinued and his elevated INR is admitted to [facility] because of that reason I'm not changing the dose of Coumadin, the level will be checked on Monday again titration depending on his INR level. Since patient had CHF this hasn't is not appropriate choice because of which patient was changed to metoprolol and Aldactone was added and patient will be discharged on these medications. PHYSICAL EXAMINATION: GENERAL: The patient is alert and oriented x3, not in any acute distress. Well developed, well nourished. HEENT: Pupils are round and equally reacting to light. EOMI. No scleral icterus. No conjunctival pallor. Normocephalic, atraumatic. No pharyngeal erythema. No thyromegaly. CARDIOVASCULAR: S1 and S2 present. No murmurs, rubs, or gallops. PULMONARY: Chest is clear to auscultation, no wheezing or crackles. ABDOMEN: Soft, nontender, nondistended, normoactive bowel sounds. No palpable organomegaly. MUSCULOSKELETAL: No joint swelling or deformity. EXTREMITIES: No cyanosis, clubbing, or pedal edema. NEUROLOGICAL: Gross neurological examination did not reveal any focal deficits. SKIN: No rashes. He is refer to dictation from Dr. Lee for further details of hospitalization course and other medical problems that were addressed here Plan - Discharge Summary Discharge Rx Participant: No New Discharge Prescriptions: New Spironolactone [Aldactone] 25 mg PO DAILY #60 tab Metoprolol Succinate (ER) [Toprol XL] 25 mg PO DAILY #30 tab.er.24h Continue Furosemide [Lasix] 40 mg PO DAILY Warfarin [Coumadin] 2.5 mg PO DAILY Folic Acid 0.8 mg PO DAILY Docusate [Colace] 100 mg PO DAILY Melatonin 10 mg PO HS Discontinued Cephalexin [Keflex] 500 mg PO Q8HR Diltiazem HCl [Cardizem] 90 mg PO BID Discharge Medication List Folic Acid 0.8 mg PO DAILY 03/01/19 [History] Furosemide [Lasix] 40 mg PO DAILY 03/01/19 [History] Warfarin [Coumadin] 2.5 mg PO DAILY 03/01/19 [History] Docusate [Colace] 100 mg PO DAILY 12/02/19 [History] Melatonin 10 mg PO HS 12/02/19 [History] Metoprolol Succinate (ER) [Toprol XL] 25 mg PO DAILY #30 tab.er.24h 12/04/19 [Rx] Spironolactone [Aldactone] 25 mg PO DAILY #60 tab 12/04/19 [Rx] Follow up Appointment(s)/Referral(s): Donte Adame MD [STAFF PHYSICIAN] - 12/13/19 10:45 am (follow up with YOAN.) Natalio Salinas MD [Primary Care Provider] - 3 Days Merry Desai MD [STAFF PHYSICIAN] - 12/18/19 1:15 pm Patient Instructions/Handouts: Heart Failure (DC), Pleural Effusion (DC) Discharge Disposition: HOME SELF-CARE
[2019-12-04 20:59] LABS: Glucose, BF Source Thoracentesis Fluid; Glucose, Body Fluid 97 mg/dL; LDH, Body Fluid Source Thoracentesis Fluid; Total Protein, Body Fluid 1394 mg/dL
--- NOTE | 2019-12-05 14:40 | CDI ---
Documentation Clarification Form Date: 12/05/19 From: Lisette Espinal CCS Phone: If you have a question about this query, please contact Aziza Ricks, [employer] at [phone] between 8am and 5pm. Admit Date: 12/03/19 Discharge Date: 12/04/19 Patient Name: Junior Begum Visit Number: [id number] ATTENTION: The Clinical Documentation Specialists (CDI) and [facility] Coding Staff appreciate your assistance in clarifying documentation. Please respond to the clarification below the line at the bottom and electronically sign. The CDI & [facility] Coding staff will review the response and follow-up if needed. Please note: Queries are made part of the Legal Health Record. If you have any questions, please contact the author of this message via ITS. Dear Dr. Hall, Your patient has a documented diagnosis of acute hypoxic respiratory failure - which may lack sufficient clinical evidence/support. History/Risk Factors: A/C CHF, Pleural effusion, Anemia, CAD Clinical Indicators: Shortness of breath Vitals: BP 91/50, RR 18, OK 79, Temp 97.5 O2 Sat: 93, 97, 94, 95 Labs: Carbon Dioxide 24,28, 27 Treatment: Oxygen Nasal Cannula 2 lpm standby, Thoracentesis Based on the clinical evidence and your professional judgment, do you feel acute hypoxic respiratory failure is a valid diagnosis? Yes, acute hypoxic respiratory failure present/active during this admission as evidence by (additional clinical support): No, acute hypoxic respiratory failure was ruled out. Other (please specify diagnosis) Unable to determine No, acute hypoxic respiratory failure was ruled out. MTDD
== END 2019-12-04 12:44 | disposition home or self-care (01) ==
LOC: EC 11:26 → 3SCARD 13:03 → UNDOADMOB 13:03 → 3SCARD 13:27 → 1SOBS 13:27 → INTOOBSV 12-03 11:40 → OBSVTOIN 12-03 11:40 → UNDODISIN 12-04 12:44
PROVIDERS: ADMIT Hospitalist; ATTEND Hospitalist
DX: I50.23 Acute on chronic systolic (congestive) heart failure (principal); J91.8 Pleural effusion in other conditions classified elsewhere; I25.5 Ischemic cardiomyopathy; D68.9 Coagulation defect, unspecified; E44.0 Moderate protein-calorie malnutrition; I44.7 Left bundle-branch block, unspecified; E87.1 Hypo-osmolality and hyponatremia; I44.0 Atrioventricular block, first degree; Z68.20 Body mass index [BMI] 20.0-20.9, adult; D63.8 Anemia in other chronic diseases classified elsewhere; E87.6 Hypokalemia; I25.10 Atherosclerotic heart disease of native coronary artery without angina pectoris; Z87.891 Personal history of nicotine dependence; I25.2 Old myocardial infarction; K76.9 Liver disease, unspecified; T45.515A Adverse effect of anticoagulants, initial encounter; Z98.890 Other specified postprocedural states; Z98.42 Cataract extraction status, left eye; Z98.41 Cataract extraction status, right eye; J18.9 Pneumonia, unspecified organism; Z86.711 Personal history of pulmonary embolism; Z87.09 Personal history of other diseases of the respiratory system; Z95.810 Presence of automatic (implantable) cardiac defibrillator; Z95.0 Presence of cardiac pacemaker; K80.20 Calculus of gallbladder without cholecystitis without obstruction; J44.9 Chronic obstructive pulmonary disease, unspecified; Z82.3 Family history of stroke; Z82.49 Family history of ischemic heart disease and other diseases of the circulatory system; Z79.01 Long term (current) use of anticoagulants; Z79.899 Other long term (current) drug therapy
CPT/HCPCS: 32555; 96372 ×2; 96374; 99285; 36415; 93005; 93306; 87798 ×3; 87496; 87498; 87529; 88108; 88305; 80053; 80048 ×2; 89050; 83605; 83735; 84484; 85025 ×3; 85610 ×3; 85730; 87252; 87502; 87634; 87070; 87205; 87116; 87102; 87206; 82945; 83615; 84157; 71045; 71046; 71260; G0378 ×3; J1644 ×2; J1940; Q9967

== ENCOUNTER 2021-05-09 12:08 | Observation (INO) | payer MEDICARE ==
[2021-05-09] MEDS ORDERED: SODIUM CHLORIDE 0.9% 500 ML 500 ML IV STA (12:30)
--- NOTE | 2021-05-09 12:34 | ED ---
General Adult HPI - General Chief complaint: Weakness Stated complaint: Weakness Time Seen by Provider: 05/09/21 12:12 Source: patient, EMS Mode of arrival: EMS Limitations: no limitations - History of Present Illness Initial comments: Dictation was produced using [employer] dictation software. please excuse any grammatical, word or spelling errors. Chief Complaint: 80-year-old male past medical history coronary artery disease, heart failure, cardiac infarction, PE presents emergency department for diarrhea 4 weeks, fall yesterday and generalized weakness. History of Present Illness: Is 80-year-old male who has multiple cardiac and pulmonary comorbidities. Patient states that for the last 4 weeks she's been having profuse watery diarrhea. He did try taking Imodium which improved of symptoms as of late however over the last couple days it didn't like it was working for him. She states his diarrhea is black. He does take a nticoagulation medications. Patient also fell yesterday at around 5 PM. He does take Coumadin. Supposedly lost consciousness for 2-3 seconds. Patient has a complaints of his right ankle. Patient denies any other pain complaints. No recent travel. The ROS documented in this emergency department record has been reviewed and confirmed by me. Those systems with pertinent positive or negative responses have been documented in the HPI. All other systems are other negative and/or noncontributory. PHYSICAL EXAM: General Impression: Alert and oriented x3, not in acute distress HEENT: Normocephalic atraumatic, extra-ocular movements intact, pupils equal and reactive to light bilaterally, dry mucous membranes Cardiovascular: Heart regular rate and rhythm Chest: Able to complete full sentences, no retractions, no tachypnea Abdomen: abdomen soft, non-tender, non-distended, no organomegaly Musculoskeletal: Pulses present and equal in all extremities, no peripheral edema Right ankle: Mild pain to the right heel Motor: no focal deficits noted Neurological: CN II-XII grossly intact, no focal motor or sensory deficits noted Skin: Intact with no visualized rashes Psych: Normal affect and mood ED course: 80-year-old male with multiple coronary disease presents to the emergency department for 4 weeks of diarrhea, fall yesterday and right ankle pain. Vital signs upon arrival shows blood pressure 99/66 Computed tomography scan of the head and C-spine shows no acute processes. There is evidence of old lacunar infarct left parietal lobe. Otherwise no acute intracranial abnormality. Ankle x-ray is negative for occult fractures. Chest x-ray and pelvis x-ray are negative. Laboratory evaluation obtained. CBC is unremarkable. INR is 4.0. Patient does take warfarin. Metabolic panel shows slight hyponatremic 132, potassium 3.2. Lactic acidosis 3.4. Stool occult blood is negative. Patient reevaluated at bedside at 3 PM found to be in stable medical condition he still complaining of some right ankle pain.Patient is also comfortable being discharged. Given his lactic acidosis age and poor social situation the patient would benefit from observation admission with IV hyd ration, lactic acidosis recheck. Patient is agreeable to plan. Case discussed with Dr. de jesus. EKG interpretation: Ventricular rate 72, sinus rhythm with frequent PVCs, left bundle branch block, ND interval 190, Q's 24, QTC 556. No ND prolongation, no QTC prolongation, no ST or T-wave changes noted. EKG compared to 12/02/2019 showing no changes. Overall, this EKG is unremarkable - Related Data Home Medications Medication Instructions Recorded Confirmed Folic Acid 0.8 mg PO DAILY 03/01/19 05/09/21 Furosemide [Lasix] 40 mg PO DAILY 03/01/19 05/09/21 Melatonin 10 mg PO HS 12/02/19 05/09/21 Warfarin [Coumadin] 1.25 mg PO SUTUTHFRSA 05/09/21 05/09/21 Warfarin [Coumadin] 2.5 mg PO MOWE 05/09/21 05/09/21 Previous Rx's Medication Instructions Recorded Metoprolol Succinate (ER) [Toprol 25 mg PO DAILY #30 tab.er.24h 12/04/19 XL] Spironolactone [Aldactone] 25 mg PO DAILY #60 tab 12/04/19 Allergies Allergy/AdvReac Type Severity Reaction Status Date / Time No Known Allergies Allergy Verified 05/09/21 13:42 Review of Systems ROS Statement: Those systems with pertinent positive or pertinent negative responses have been documented in the HPI. ROS Other: All systems not noted in ROS Statement are negative. Past Medical History Past Medical History: Coronary Artery Disease (CAD), Chest Pain / Angina, Heart Failure, Eye Disorder, Myocardial Infarction (PA), Pneumonia, Pulmonary Embolus (PE) Additional Past Medical History / Comment(s): R side pleural effusions with thoracentesis x2/thorascopy with talc pleurodesis at [facility] per pt, EF 20%, recent pneumonia tx with ABX, 1985 pulmonary embolism, occasional back pain. Last Myocardial Infarction Date:: 1989 History of Any Multi-Drug Resistant Organisms: None Reported Past Surgical History: AICD, Cardiac Ablation, Pacemaker, Tonsillectomy Additional Past Surgical History / Comment(s): Thoroscopy with talc pleurodesis R lung, bilateral cataract removals. Past Anesthesia/Blood Transfusion Reactions: No Reported Reaction Additional Past Anesthesia/Blood Transfusion Reaction / Comment(s): Pt thinks he has received blood in past without reaction. Type of Cardiac Device: Permanent Pacemaker, AICD Device Placement Date:: 2015 Past Psychological History: No Psychological Hx Reported Smoking Status: Former smoker Past Alcohol Use History: Occasional Past Drug Use History: None Reported - Past Family History Mother Family Medical History: No Reported History Brother(s) Family Medical History: Cancer Father Additional Family Medical History / Comment(s): Ben had a colostomy. General Exam Limitations: no limitations Course Vital Signs 05/09/21 05/09/21 05/09/21 12:13 13:21 14:21 Temperature 98.1 F Pulse Rate 71 71 80 Respiratory 20 20 20 Rate Blood Pressure 99/66 90/65 101/68 O2 Sat by Pulse 97 97 Oximetry Medical Decision Making - Lab Data Result diagrams: 05/09/21 12:32 05/09/21 12:32 Lab Results 05/09/21 05/09/21 05/09/21 Range/Units 12:30 12:32 12:32 WBC 9.7 (3.8-10.6) k/uL RBC 4.05 L (4.30-5.90) m/uL Hgb 11.8 L (13.0-17.5) gm/dL Hct 35.0 L (39.0-53.0) % MCV 86.5 (80.0-100.0) fL MCH 29.0 (25.0-35.0) pg MCHC 33.6 (31.0-37.0) g/dL RDW 14.4 (11.5-15.5) % Plt Count 327 (150-450) k/uL MPV 7.6 Neutrophils % 73 % Lymphocytes % 13 % Monocytes % 8 % Eosinophils % 1 % Basophils % 0 % Neutrophils # 7.1 (1.3-7.7) k/uL Lymphocytes # 1.3 (1.0-4.8) k/uL Monocytes # 0.8 (0-1.0) k/uL Eosinophils # 0.1 (0-0.7) k/uL Basophils # 0.0 (0-0.2) k/uL PT (9.0-12.0) sec INR (<1.2) APTT (22.0-30.0) sec Sodium (137-145) mmol/L Potassium (3.5-5.1) mmol/L Chloride (98-107) mmol/L Carbon Dioxide (22-30) mmol/L Anion Gap mmol/L BUN (9-20) mg/dL Creatinine (0.66-1.25) mg/dL Est GFR (CKD-EPI)AfAm (>60 ml/min/1.73 sqM) Est GFR (CKD-EPI)NonAf (>60 ml/min/1.73 sqM) Glucose (74-99) mg/dL Plasma Lactic Acid Ramon (0.7-2.0) mmol/L Calcium (8.4-10.2) mg/dL Magnesium (1.6-2.3) mg/dL Total Bilirubin (0.2-1.3) mg/dL AST (17-59) U/L ALT (4-49) U/L Alkaline Phosphatase (38-126) U/L Troponin I (0.000-0.034) ng/mL NT-Pro-B Natriuret Pep pg/mL Total Protein (6.3-8.2) g/dL Albumin (3.5-5.0) g/dL Stool Occult Blood Negative (Negative) Blood Type Blood Type Confirm A Positive Blood Type Recheck Bld Type Recheck Status Antibody Screen Spec Expiration Date 05/09/21 05/09/21 05/09/21 Range/Units 12:32 12:32 12:32 WBC (3.8-10.6) k/uL RBC (4.30-5.90) m/uL Hgb (13.0-17.5) gm/dL Hct (39.0-53.0) % MCV (80.0-100.0) fL MCH (25.0-35.0) pg MCHC (31.0-37.0) g/dL RDW (11.5-15.5) % Plt Count (150-450) k/uL MPV Neutrophils % % Lymphocytes % % Monocytes % % Eosinophils % % Basophils % % Neutrophils # (1.3-7.7) k/uL Lymphocytes # (1.0-4.8) k/uL Monocytes # (0-1.0) k/uL Eosinophils # (0-0.7) k/uL Basophils # (0-0.2) k/uL PT 38.2 H (9.0-12.0) sec INR 4.0 H (<1.2) APTT 23.2 (22.0-30.0) sec Sodium 132 L (137-145) mmol/L Potassium 3.2 L (3.5-5.1) mmol/L Chloride 94 L (98-107) mmol/L Carbon Dioxide 27 (22-30) mmol/L Anion Gap 11 mmol/L BUN 10 (9-20) mg/dL Creatinine 0.58 L (0.66-1.25) mg/dL Est GFR (CKD-EPI)AfAm >90 (>60 ml/min/1.73 sqM) Est GFR (CKD-EPI)NonAf >90 (>60 ml/min/1.73 sqM) Glucose 100 H (74-99) mg/dL Plasma Lactic Acid Ramon 3.4 H* (0.7-2.0) mmol/L Calcium 8.6 (8.4-10.2) mg/dL Magnesium 1.6 (1.6-2.3) mg/dL Total Bilirubin 1.3 (0.2-1.3) mg/dL AST 45 (17-59) U/L ALT 16 (4-49) U/L Alkaline Phosphatase 99 (38-126) U/L Troponin I (0.000-0.034) ng/mL NT-Pro-B Natriuret Pep pg/mL Total Protein 6.7 (6.3-8.2) g/dL Albumin 3.1 L (3.5-5.0) g/dL Stool Occult Blood (Negative) Blood Type Blood Type Confirm Blood Type Recheck Bld Type Recheck Status Antibody Screen Spec Expiration Date 05/09/21 05/09/21 05/09/21 Range/Units 12:32 12:32 12:38 WBC (3.8-10.6) k/uL RBC (4.30-5.90) m/uL Hgb (13.0-17.5) gm/dL Hct (39.0-53.0) % MCV (80.0-100.0) fL MCH (25.0-35.0) pg MCHC (31.0-37.0) g/dL RDW (11.5-15.5) % Plt Count (150-450) k/uL MPV Neutrophils % % Lymphocytes % % Monocytes % % Eosinophils % % Basophils % % Neutrophils # (1.3-7.7) k/uL Lymphocytes # (1.0-4.8) k/uL Monocytes # (0-1.0) k/uL Eosinophils # (0-0.7) k/uL Basophils # (0-0.2) k/uL PT (9.0-12.0) sec INR (<1.2) APTT (22.0-30.0) sec Sodium (137-145) mmol/L Potassium (3.5-5.1) mmol/L Chloride (98-107) mmol/L Carbon Dioxide (22-30) mmol/L Anion Gap mmol/L BUN (9-20) mg/dL Creatinine (0.66-1.25) mg/dL Est GFR (CKD-EPI)AfAm (>60 ml/min/1.73 sqM) Est GFR (CKD-EPI)NonAf (>60 ml/min/1.73 sqM) Glucose (74-99) mg/dL Plasma Lactic Acid Ramon (0.7-2.0) mmol/L Calcium (8.4-10.2) mg/dL Magnesium (1.6-2.3) mg/dL Total Bilirubin (0.2-1.3) mg/dL AST (17-59) U/L ALT (4-49) U/L Alkaline Phosphatase (38-126) U/L Troponin I <0.012 (0.000-0.034) ng/mL NT-Pro-B Natriuret Pep 6420 pg/mL Total Protein (6.3-8.2) g/dL Albumin (3.5-5.0) g/dL Stool Occult Blood (Negative) Blood Type A Positive Blood Type Confirm Blood Type Recheck No Previous Record Bld Type Recheck Status CABO Indicated Antibody Screen NEGATIVE Spec Expiration Date 05/12/20212337 Disposition Clinical Impression: Lactic acidosis Disposition: ADMITTED IP TO THIS [facility] Condition: Fair Referrals: Nonstaff,Physician [Primary Care Provider] - 1-2 days
[2021-05-09 12:50] LABS: Basophils % (A) 0 %; Eosinophils # (A) 0.1 k/uL (0-0.7); Eosinophils % (A) 1 %; HGB 11.8 gm/dL (13.0-17.5); Lymphocytes # (A) 1.3 k/uL (1.0-4.8); Lymphocytes % (A) 13 %; MCHC 33.6 g/dL (31.0-37.0); MCV 86.5 fL (80.0-100.0); Mean Platelet Volume 7.6; Monocytes # (A) 0.8 k/uL (0-1.0); Monocytes % (A) 8 %; Neutrophils # (A) 7.1 k/uL (1.3-7.7); Neutrophils % (A) 73 %; Platelet Count 327 k/uL (150-450); RBC 4.05 m/uL (4.30-5.90); RDW 14.4 % (11.5-15.5); WBC 9.7 k/uL (3.8-10.6)
[2021-05-09 12:59] LABS: Partial Thromboplastin Time 23.2 sec (22.0-30.0); Prothrombin Time 38.2 sec (9.0-12.0)
[2021-05-09 13:02] LABS: ALT 16 U/L (4-49); AST 45 U/L (17-59); African American GFR (CKD) >90 (>60 ml/min/1.73 sqM); Albumin 3.1 g/dL (3.5-5.0); Alkaline Phosphatase 99 U/L (38-126); Anion Gap 11 mmol/L; Blood Urea Nitrogen 10 mg/dL (9-20); Calcium 8.6 mg/dL (8.4-10.2); Carbon Dioxide 27 mmol/L (22-30); Chloride 94 mmol/L (98-107); Glucose 100 mg/dL (74-99); Magnesium 1.6 mg/dL (1.6-2.3); Non-African American GFR(CKD) >90 (>60 ml/min/1.73 sqM); Potassium 3.2 mmol/L (3.5-5.1); Sodium 132 mmol/L (137-145); Total Bilirubin 1.3 mg/dL (0.2-1.3); Total Protein 6.7 g/dL (6.3-8.2)
[2021-05-09] MEDS ORDERED: SODIUM CHLORIDE 0.9% 1,000 ML IV STA (13:33)
--- NOTE | 2021-05-09 14:37 | CT ---
EXAMINATION TYPE: CT brain kirby hernandez DATE OF EXAM: 05/09/2021 COMPARISON: None HISTORY: Fall CT DLP: 1237 mGycm Automated exposure control for dose reduction was used. There is cerebral cortical atrophy. There is no mass effect nor midline shift. There is no sign of in tracranial hemorrhage. There is enlargement of the left lateral ventricle with some hypodensity in th e left parietal lobe white matter. The calvarium is intact. Cervical vertebra have normal alignment. There is no compression fracture. There is multilevel mild s pondylotic changes. Prevertebral soft tissues are intact. IMPRESSION: Spondylotic changes are mild in the cervical spine. No fracture. Cerebral atrophy. Old large lacunar infarct left parietal lobe adjacent to the lateral ventricle. No acute intracranial abnormality.
--- NOTE | 2021-05-09 14:45 | XR ---
EXAMINATION TYPE: XR ankle complete RT DATE OF EXAM: 05/09/2021 COMPARISON: NONE HISTORY: Pain TECHNIQUE: 3 views FINDINGS: Ankle mortise is anatomic. I see no fracture nor dislocation. Joint spaces are normal. IMPRESSION: Negative right ankle exam.
--- NOTE | 2021-05-09 14:46 | XR ---
EXAMINATION TYPE: XR chest 1V portable DATE OF EXAM: 05/09/2021 COMPARISON: 04/28/2021 HISTORY: Fall. Chest pain TECHNIQUE: FINDINGS: There is no heart failure nor confluent pneumonic infiltrate. Costophrenic angles are clear . There is left axillary pacemaker. Mediastinum is normal. There is no pneumothorax. IMPRESSION: No active cardiopulmonary disease. No change.
--- NOTE | 2021-05-09 14:47 | XR ---
EXAMINATION TYPE: XR pelvis AP view DATE OF EXAM: 05/09/2021 COMPARISON: NONE HISTORY: Weakness. Fall. TECHNIQUE: Single view FINDINGS: The pelvic ring is intact. Proximal femurs and hip joints appear intact. There is no hip dy splasia. Sacroiliac joints are intact. IMPRESSION: No acute abnormality of the pelvis. No fracture.
[2021-05-09] MEDS ORDERED: NALOXONE 0.4 MG/ML 1 ML VIAL IV PRN (15:01)
[2021-05-09] MEDS ORDERED: ACETAMINOPHEN TAB 325 MG TAB PO PRN (15:01)
[2021-05-09] MEDS ORDERED: WARFARIN 2.5 MG TAB PO SCH (17:45)
[2021-05-09] MEDS ORDERED: Potassium Replacement Protocol 1 EACH MISC MISCELLANE PRN ×2 (17:48→21:01)
[2021-05-09] MEDS: POTASSIUM CHLORIDE ER 20 MEQ TAB.ER PO SCH ×2 (18:12→20:12)
[2021-05-09] MEDS ORDERED: WARFARIN 0.5 MG TAB PO ONE (18:45)
--- NOTE | 2021-05-09 20:59 | P.HPIM ---
History of Present Illness This is a pleasant 80 years old male with past medical history of coronary artery disease, CHF, pulmonary embolism and warfarin, history of right-sided pleural effusion status post thoracocentesis 2. Presents because of fall. Patient states that he fell last night at 5 PM going to the restroom, he has some vision difficulty at baseline but says that he was on cautious in the floor for half minutes. He denies dizziness prior to the fall. He states that he hit his right forearm, which of the nose and the left knee and right ankle, patient says that he has difficulty walking because of right ankle sprain. Patient says that he has chronic mild right hemiparesis since with no new weakness, sensation changes, blurred vision, double vision or slurred speech. He denies headache. Denies abdominal pain or vomiting but he has ongoing diarrhea for about 2 months and a half about 15-20 times per day, he denies any blood in his stool and the stool is brown in color Complains from increased frequency of urination but no dysuria He denies smoking, he quit in the 80s were used to smoke 4-5 cigars per day. Or illicit drugs. His loss prevention auditor is Dr. Birmingham from [facility]. He sees Dr. Desai for fluid in his leg Supposed to follow up with internet and e business project manager Dr. Gimenez on 06/08 Vitals are stable, systolic blood pressure is 90s to 100. CBC showing only mild anemia with hemoglobin 11.8. INR is elevated at 4.0. BMP showing mild hyponatremia at 132, mild hypokalemia at 3.2, creatinine normal 0.5. Glucose is 100. Lactic acid is elevated 3.4 and 2.3. Liver enzymes not elevated. Troponin 2 are negative for less than 0.012. ProBNP is 6420. Occult blood in the stool is negative EKG showing multiple PVCs with a rate of 72 BPM, QTC is prolonged at 556 s Pelvic x-ray showing no abnormalities Chest x-ray showing no acute process negative right ankle x-ray CT of the head and cervical spine showing spondylitic changes in the cervical spine with no fracture. 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 No acute intracranial abnormality In the emergency room received 500 mL bolus, and continued with normal saline at 100 mL per hour. Echocardiogram from 2019 showing ejection fraction of 20-25%, with moderate to severe mitral regurgitation Review of Systems CONSTITUTIONAL: No fever, no malaise, no fatigue. HEENT: No recent visual problems or hearing problems. Denied any sore throat. CARDIOVASCULAR: No orthopnea, PND, no palpitations, no syncope. PULMONARY: No shortness of breath, no cough, no hemoptysis. GASTROINTESTINAL: no nausea, no vomiting, no abdominal pain. Normoactive bowel sounds. NEUROLOGICAL: No headaches, no weakness, no numbness. HEMATOLOGICAL: Denies any bleeding or petechiae. GENITOURINARY: Denies any burning micturition, frequency, or urgency. MUSCULOSKELETAL/RHEUMATOLOGICAL: Denies any joint pain, swelling, or any muscle pain. ENDOCRINE: Denies any polyuria or polydipsia. Past Medical History Past Medical History: Coronary Artery Disease (CAD), Chest Pain / Angina, Heart Failure, Eye Disorder, Myocardial Infarction ([place]), Pneumonia, Pulmonary Embolus ([place]) Additional Past Medical History / Comment(s): R side pleural effusions with thoracentesis x2/thorascopy with talc pleurodesis at [facility] per pt, EF 20%, recent pneumonia tx with ABX, 1985 pulmonary embolism, occasional back pain. Last Myocardial Infarction Date:: 1989 History of Any Multi-Drug Resistant Organisms: None Reported Past Surgical History: AICD, Cardiac Ablation, Pacemaker, Tonsillectomy Additional Past Surgical History / Comment(s): Thoroscopy with talc pleurodesis R lung, bilateral cataract removals. Past Anesthesia/Blood Transfusion Reactions: No Reported Reaction Additional Past Anesthesia/Blood Transfusion Reaction / Comment(s): Pt thinks he has received blood in past without reaction. Type of Cardiac Device: Permanent Pacemaker, AICD Device Placement Date:: 2015 Past Psychological History: No Psychological Hx Reported Additional Psychological History / Comment(s): Pt resides with his spouse. He uses no assistive device. He no longer drives, spouse drives. Smoking Status: Former smoker, Smoker, current status unknown Past Alcohol Use History: Occasional Additional Past Alcohol Use History / Comment(s): Pt cannot recall when he started smoking but it was cigars and he states he quit years ago but cannot recall what year. Pt states he used to drink 6-8 beers/day but quit all alcohol 2 yrs ago. Past Drug Use History: None Reported - Past Family History Mother Family Medical History: No Reported History Brother(s) Family Medical History: Cancer Father Additional Family Medical History / Comment(s): Ben had a colostomy. Medications and Allergies Home Medications Medication Instructions Recorded Confirmed Type Folic Acid 0.8 mg PO DAILY 03/01/19 05/09/21 History Furosemide [Lasix] 40 mg PO DAILY 03/01/19 05/09/21 History Melatonin 10 mg PO HS 12/02/19 05/09/21 History Metoprolol Succinate (ER) [Toprol 25 mg PO DAILY #30 tab.er.24h 12/04/19 05/09/21 Rx XL] Spironolactone [Aldactone] 25 mg PO DAILY #60 tab 12/04/19 05/09/21 Rx Warfarin [Coumadin] 1.25 mg PO SUTUTHFRSA 05/09/21 05/09/21 History Warfarin [Coumadin] 2.5 mg PO MOWE 05/09/21 05/09/21 History Allergies Allergy/AdvReac Type Severity Reaction Status Date / Time No Known Allergies Allergy Verified 05/09/21 13:42 Physical Exam Vitals: Vital Signs Temp Pulse Pulse Resp BP BP Pulse Ox 05/09/21 16:44 20 05/09/21 15:47 98.1 F 81 16 97/56 100 05/09/21 15:28 73 20 100/68 97 05/09/21 14:21 80 20 101/68 97 05/09/21 13:21 71 20 90/65 97 05/09/21 12:13 98.1 F 71 20 99/66 Intake and Output 05/09/21 05/09/21 05/09/21 06:59 14:59 22:59 Other: Weight 58.06 kg 58.06 kg -GENERAL: The patient is alert and oriented x3, not in any acute distress. Thin built, dehydrated and generally weak HEENT: Pupils are round and equally reacting to light. EOMI. No scleral icterus. No conjunctival pallor. Normocephalic, atraumatic. No pharyngeal erythema. No thyromegaly. CARDIOVASCULAR: S1 and S2 present. No murmurs, rubs, or gallops. PULMONARY: Chest is clear to auscultation, no wheezing or crackles. ABDOMEN: Soft, nontender, nondistended, normoactive bowel sounds. No palpable organomegaly. MUSCULOSKELETAL: No joint swelling or deformity. EXTREMITIES: No cyanosis, clubbing, or pedal edema. NEUROLOGICAL: Gross neurological examination did not reveal any focal deficits. SKIN: No rashes. No petechiae Results CBC & Chem 7: 05/09/21 12:32 05/09/21 12:32 Labs: Abnormal Lab Results - Last 24 Hours (Table) 05/09/21 05/09/21 05/09/21 Range/Units 12:32 12:32 12:32 RBC 4.05 L (4.30-5.90) m/uL Hgb 11.8 L (13.0-17.5) gm/dL Hct 35.0 L (39.0-53.0) % PT 38.2 H (9.0-12.0) sec INR 4.0 H (<1.2) Sodium 132 L (137-145) mmol/L Potassium 3.2 L (3.5-5.1) mmol/L Chloride 94 L (98-107) mmol/L Creatinine 0.58 L (0.66-1.25) mg/dL Glucose 100 H (74-99) mg/dL Plasma Lactic Acid Ramon (0.7-2.0) mmol/L Albumin 3.1 L (3.5-5.0) g/dL 05/09/21 05/09/21 Range/Units 12:32 16:27 RBC (4.30-5.90) m/uL Hgb (13.0-17.5) gm/dL Hct (39.0-53.0) % PT (9.0-12.0) sec INR (<1.2) Sodium (137-145) mmol/L Potassium (3.5-5.1) mmol/L Chloride (98-107) mmol/L Creatinine (0.66-1.25) mg/dL Glucose (74-99) mg/dL Plasma Lactic Acid Ramon 3.4 H* 2.3 H* (0.7-2.0) mmol/L Albumin (3.5-5.0) g/dL Thrombosis Risk Factor Assmnt - Choose All That Apply Each Risk Factor Represents 3 Points: Age 75 years or older, History of DVT/PE Thrombosis Risk Factor Assessment Total Risk Factor Score: 6 Thrombosis Risk Factor Assessment Level: High Risk Assessment and Plan Assessment: Syncope, possible orthostatic hypotension. Rule out cardiac causes Chronic diarrhea for 2 months and a half Dehydration with elevated lactic acid Prolonged QTc with PVC Coagulopathy secondary to Coumadin Pulmonary embolism on Coumadin History of coronary artery disease Chronic systolic CHF with ejection fraction of 20-25% Moderate to severe mitral regurgitation Plan: This is a pleasant 80 years old male who presents with chronic diarrhea and syncope. check orthostatic vitals Check C. diff. Stool culture and sensitivity. Check Giardia antigen, fecal calprotectin, TSH Check tissue transglutaminase immunoglobulin A Check urinalysis and bladder scan Check echocardiogram Telemetry monitoring Hold Lasix continue with metoprolol and consult cardiology service Labs and medication were reviewed.. Continue same treatment. Continue with symptomatic treatment. Resume home medication. Monitor lytes and vitals. DVT and GI prophylaxis. Further recommendations depends on the clinical course of the patient DVT prophylaxis: On Coumadin GI Prophylaxis: Pepcid PT/OT: Pending Prognosis is guarded
[2021-05-09] MEDS ORDERED: Magnesium Replacement Protocol 1 EACH MISC MISCELLANE PRN (21:01)
[2021-05-09] MEDS: FAMOTIDINE 20 MG/2 ML VIAL IV SCH (21:44)
[2021-05-10 05:57] LABS: Appearance,Urine Clear (Clear); Bilirubin,Urine Negative (Negative); Blood,Urine Negative (Negative); Color,Urine Yellow; Glucose,Urine (UA) Negative (Negative); Ketones,Urine Negative (Negative); Leukocyte Esterase,Urine Negative (Negative); Nitrite,Urine Negative (Negative); PH, Urine 6.5 (5.0-8.0); Protein,Urine Negative (Negative); Specific Gravity,Urine 1.012 (1.001-1.035)
[2021-05-10 06:23] LABS: Basophils % (A) 0 %; Eosinophils # (A) 0.1 k/uL (0-0.7); Eosinophils % (A) 1 %; HCT 31.4 % (39.0-53.0); HGB 10.4 gm/dL (13.0-17.5); Lymphocytes # (A) 0.9 k/uL (1.0-4.8); Lymphocytes % (A) 14 %; MCH 29.2 pg (25.0-35.0); MCHC 33.2 g/dL (31.0-37.0); MCV 88.1 fL (80.0-100.0); Mean Platelet Volume 7.9; Monocytes # (A) 0.6 k/uL (0-1.0); Monocytes % (A) 10 %; Neutrophils # (A) 4.4 k/uL (1.3-7.7); Neutrophils % (A) 71 %; Platelet Count 233 k/uL (150-450); RBC 3.57 m/uL (4.30-5.90); WBC 6.2 k/uL (3.8-10.6)
[2021-05-10 06:30] LABS: INR 3.8 (<1.2); Prothrombin Time 36.8 sec (9.0-12.0)
[2021-05-10 06:46] LABS: African American GFR (CKD) >90 (>60 ml/min/1.73 sqM); Anion Gap 6 mmol/L; Blood Urea Nitrogen 8 mg/dL (9-20); Calcium 8.2 mg/dL (8.4-10.2); Carbon Dioxide 26 mmol/L (22-30); Chloride 98 mmol/L (98-107); Glucose 92 mg/dL (74-99); Magnesium 1.7 mg/dL (1.6-2.3); Non-African American GFR(CKD) >90 (>60 ml/min/1.73 sqM); Potassium 3.3 mmol/L (3.5-5.1); Sodium 130 mmol/L (137-145)
[2021-05-10] MEDS: FUROSEMIDE 40 MG TAB PO SCH (07:58)
[2021-05-10] MEDS: SPIRONOLACTONE 25 MG TAB PO SCH (07:58)
[2021-05-10] MEDS: FAMOTIDINE 20 MG/2 ML VIAL IV SCH ×2 (07:59→19:51)
[2021-05-10] MEDS: FOLIC ACID 1 MG TAB PO SCH (07:59)
[2021-05-10] MEDS: METOPROLOL SUCCINATE (ER) 25 MG TAB.ER.24H PO SCH (08:03)
--- NOTE | 2021-05-10 10:00 | ECHOF ---
Referral Reason:Rule out heart disease MEASUREMENTS -------- HEIGHT: 170.2 cm WEIGHT: 58.1 kg BP: 92/57 IVSd: 0.8 cm (0.6 - 1.1) LVIDd: 5.8 cm (3.9 - 5.3) LVPWd: 1.3 cm (0.6 - 1.1) IVSs: 1.0 cm LVIDs: 5.4 cm LVPWs: 1.7 cm LAESV Index (A-L): 53.54 ml/m Ao Diam: 1.9 cm (2.0 - 3.7) AV Cusp: 0.9 cm (1.5 - 2.6) MV EXCURSION: 19.315 mm (> 18.000) MV EF SLOPE: 1321 mm/s (70 - 150) RAP: 5.00 mmHg RVSP: 17.42 mmHg FINDINGS -------- This was a technically difficult study with suboptimal apical views. The left ventricle is moderately dilated. Left ventricular wall thickness is normal. There is sev ere global hypokinesis of LV . Overall left ventricular systolic function is severely impaired with , an EF < 20%. The right ventricle is normal in size. LA is severely dilated >40 ml/m2 The right atrium was not well visualized. 5.0mg of Lumason was utilized for enhancement of images Interatrial and interventricular septum intact. The aortic valve was not well visualized. There is moderate aortic valve sclerosis. There is no e vidence of aortic regurgitation. There is no evidence of aortic stenosis. Moderate mitral regurgitation is present. Mild tricuspid regurgitation present. There is no evidence of pulmonary hypertension. The right v entricular systolic pressure, as measured by Doppler, is 17.42mmHg. The pulmonic valve was not well visualized. The aortic root size is normal. IVC Not well visulized. There is no pericardial effusion. CONCLUSIONS -------- 1. The left ventricle is moderately dilated. 2. Left ventricular wall thickness is normal. 3. There is severe global hypokinesis of LV . 4. Overall left ventricular systolic function is severely impaired with, an EF < 20%. 5. LA is severely dilated >40 ml/m2 6. There is moderate aortic valve sclerosis. 7. Moderate mitral regurgitation is present. 8. Mild tricuspid regurgitation present. [employer]INT DEVELOPER [employer]: Eloina Richmond RDCS
--- NOTE | 2021-05-10 10:39 | P.CRDCN ---
History of Present Illness Consult date: 05/10/21 History of present illness: HISTORY OF PRESENT ILLNESS: This is a 80-year-old male with a past medical history significant for ischemic cardiomyopathy, AICD implantation, coronary artery disease, and DVT on Coumadin. Patient follows with a buttermaker helper in [place], Dr. Birmingham. We have been asked to see the patient in consultation for syncope. Patient examined at the bedside. Patient states he was walking at his house yesterday when he tripped over an end table and fell. He states he may have lost consciousness for 1 or 2 seconds. He denies any dizziness or lightheadedness. Denies chest pain or pressure. He denies shortness of breath. EKG reveals sinus mechanism with left bundle branch block, unchanged from previous EKG Chest xray negative for acute process Laboratory data: WBC 6.2. Hemoglobin 10.4. Platelet count 233. INR 3.8. Sodium 130. Potassium 3.3. BUN 8. Creatinine 0.50 lactic acid 3.4 on admission. Most recent 1.7. Troponin negative 2 Current home cardiac medications include Coumadin 2.5 mg Monday and Monday and 1.25 mg Monday and Monday, Aldactone 25 mg daily, metoprolol succinate 25 mg daily, Lasix 40 mg daily Echocardiogram completed revealing ejection fraction less than 20%. Severe global hypokinesis of LV. Moderate mitral regurgitation. Mild tricuspid regurgitation. REVIEW OF SYSTEMS: At the time of my exam: CONSTITUTIONAL: Denies fever or chills. HEENT: Denies blurred vision, vision changes, or eye pain. Denies hemoptysis CARDIOVASCULAR: Denies chest pain. Denies orthopnea. Denies PND. Denies palpitations RESPIRATORY: Denies shortness of breath. GASTROINTESTINAL: Denies abdominal pain. Denies nausea or vomiting. HEMATOLOGIC: Denies bleeding disorders. GENITOURINARY: Denies any blood in urine. SKIN: Denies pruitis. Denies rash. PHYSICAL EXAM: VITAL SIGNS: Reviewed. GENERAL: Well-developed in no acute distress. HEENT: Head is normocephalic. Pupils are equal, round. Sclerae anicteric. Mucous membranes of the mouth are moist. Neck supple. No JVD or thyromegaly LUNGS: Respirations even and unlabored. Lungs essentially clear to auscultation bilaterally. HEART: Regular rate and rhythm. S1 and S2 heard. ABDOMEN: Soft. Nondistended. Nontender. EXTREMITIES: Normal range of motion. No clubbing or cyanosis. Peripheral pulses intact. No lower extremity edema NEUROLOGIC: Awake and alert. Oriented x 3. ASSESSMENT: Chronic diarrhea S/P fall with questionable loss of consciousness Ischemic cardiomyopathy with previous AICD implantation Coronary artery disease DVT on Coumadin Supratherapeutic INR Chronic systolic heart failure PLAN: Continue home cardiac medications Monitor INR. Resume Coumadin when coagulopathy resolves Check orthostatic blood pressures Interrogate AICD Further recommendations pending patient's course Nurse practitioner note has been reviewed by physician. Signing provider agrees with the documented findings, assessment, and plan of care. Past Medical History Past Medical History: Coronary Artery Disease (CAD), Chest Pain / Angina, Heart Failure, Eye Disorder, Myocardial Infarction ([place]), Pneumonia, Pulmonary Embolus ([place]) Additional Past Medical History / Comment(s): R side pleural effusions with thoracentesis x2/thorascopy with talc pleurodesis at [facility] per pt, EF 20%, recent pneumonia tx with ABX, 1985 pulmonary embolism, occasional back pain. Last Myocardial Infarction Date:: 1989 History of Any Multi-Drug Resistant Organisms: None Reported Past Surgical History: AICD, Cardiac Ablation, Pacemaker, Tonsillectomy Additional Past Surgical History / Comment(s): Thoroscopy with talc pleurodesis R lung, bilateral cataract removals. Past Anesthesia/Blood Transfusion Reactions: No Reported Reaction Additional Past Anesthesia/Blood Transfusion Reaction / Comment(s): Pt thinks he has received blood in past without reaction. Type of Cardiac Device: Permanent Pacemaker, AICD Device Placement Date:: 2015 Past Psychological History: No Psychological Hx Reported Additional Psychological History / Comment(s): Pt resides with his spouse. He uses no assistive device. He no longer drives, spouse drives. Smoking Status: Former smoker, Smoker, current status unknown Past Alcohol Use History: Occasional Additional Past Alcohol Use History / Comment(s): Pt cannot recall when he st arted smoking but it was cigars and he states he quit years ago but cannot recall what year. Pt states he used to drink 6-8 beers/day but quit all alcohol 2 yrs ago. Past Drug Use History: None Reported - Past Family History Mother Family Medical History: No Reported History Brother(s) Family Medical History: Cancer Father Additional Family Medical History / Comment(s): Ben had a colostomy. Medications and Allergies Home Medications Medication Instructions Recorded Confirmed Type Folic Acid 0.8 mg PO DAILY 03/01/19 05/09/21 History Furosemide [Lasix] 40 mg PO DAILY 03/01/19 05/09/21 History Melatonin 10 mg PO HS 12/02/19 05/09/21 History Metoprolol Succinate (ER) [Toprol 25 mg PO DAILY #30 tab.er.24h 12/04/19 05/09/21 Rx XL] Spironolactone [Aldactone] 25 mg PO DAILY #60 tab 12/04/19 05/09/21 Rx Warfarin [Coumadin] 1.25 mg PO SUTUTHFRSA 05/09/21 05/09/21 History Warfarin [Coumadin] 2.5 mg PO MOWE 05/09/21 05/09/21 History Allergies Allergy/AdvReac Type Severity Reaction Status Date / Time No Known Allergies Allergy Verified 05/09/21 13:42 Physical Exam Vitals: Vital Signs Temp Pulse Pulse Pulse Resp BP BP 05/10/21 07:00 97.8 F 70 18 92/55 05/10/21 00:26 98.1 F 69 20 92/57 05/09/21 19:09 98.7 F 72 22 81/51 05/09/21 16:44 20 05/09/21 15:47 98.1 F 81 16 97/56 05/09/21 15:28 73 20 100/68 05/09/21 14:21 80 20 101/68 05/09/21 13:21 71 20 90/65 05/09/21 12:13 98.1 F 71 20 99/66 Pulse Ox 05/10/21 07:00 97 05/10/21 00:26 97 05/09/21 19:09 98 05/09/21 16:44 05/09/21 15:47 100 05/09/21 15:28 97 05/09/21 14:21 97 05/09/21 13:21 97 05/09/21 12:13 Intake and Output 05/09/21 05/10/21 05/10/21 22:59 06:59 14:59 Output Total 200 100 Balance -200 -100 Output: Urine 200 100 Other: Voiding Method Urinal Diaper # Voids 1 # Bowel Movements 1 2 Weight 58.06 kg Results 05/10/21 06:03 05/10/21 06:03 Cardiac Enzymes 05/09/21 05/09/21 05/09/21 Range/Units 12:32 12:32 16:27 AST 45 (17-59) U/L Troponin I <0.012 <0.012 (0.000-0.034) ng/mL Coagulation 05/09/21 05/10/21 Range/Units 12:32 06:03 PT 38.2 H 36.8 H (9.0-12.0) sec APTT 23.2 (22.0-30.0) sec CBC 05/09/21 05/10/21 Range/Units 12:32 06:03 WBC 9.7 6.2 (3.8-10.6) k/uL RBC 4.05 L 3.57 L (4.30-5.90) m/uL Hgb 11.8 L 10.4 L (13.0-17.5) gm/dL Hct 35.0 L 31.4 L (39.0-53.0) % Plt Count 327 233 (150-450) k/uL Comprehensive Metabolic Panel 05/09/21 05/10/21 Range/Units 12:32 06:03 Sodium 132 L 130 L (137-145) mmol/L Potassium 3.2 L 3.3 L (3.5-5.1) mmol/L Chloride 94 L 98 (98-107) mmol/L Carbon Dioxide 27 26 (22-30) mmol/L BUN 10 8 L (9-20) mg/dL Creatinine 0.58 L 0.50 L (0.66-1.25) mg/dL Glucose 100 H 92 (74-99) mg/dL Calcium 8.6 8.2 L (8.4-10.2) mg/dL AST 45 (17-59) U/L ALT 16 (4-49) U/L Alkaline Phosphatase 99 (38-126) U/L Total Protein 6.7 (6.3-8.2) g/dL Albumin 3.1 L (3.5-5.0) g/dL Current Medications Generic Name Dose Route Start Last Admin Trade Name Freq PRN Reason Stop Dose Admin Acetaminophen 650 mg 05/09/21 15:01 Acetaminophen Tab 325 Mg Tab PO Q6HR PRN Mild Pain or Fever > 100.5 Famotidine 20 mg 05/09/21 21:00 05/10/21 07:59 Famotidine 20 Mg/2 Ml Vial IV 20 mg Q12HR ARIANNA Administration Folic Acid 1 mg 05/10/21 09:00 05/10/21 07:59 Folic Acid 1 Mg Tab PO 1 mg DAILY ARIANNA Administration Furosemide 40 mg 05/10/21 09:00 05/10/21 07:58 Furosemide 40 Mg Tab PO 40 mg DAILY ARIANNA Administration Metoprolol Succinate 25 mg 05/10/21 09:00 05/10/21 08:03 Metoprolol Succinate (Er) 25 Mg Tab.Er.24h PO 25 mg DAILY ARIANNA Administration Miscellaneous Information 1 each 05/09/21 17:48 Potassium Replacement Protocol 1 Each Misc MISCELLANE DAILY PRN Per Protocol Protocol Miscellaneous Information 0 each 05/09/21 18:30 Warfarin Per Pharmacy MISCELLANE DIRECTED PRN INR Miscellaneous Information 1 each 05/09/21 21:01 Magnesium Replacement Protocol 1 Each Misc MISCELLANE DAILY PRN Per Protocol Protocol Miscellaneous Information 1 each 05/09/21 21:01 Potassium Replacement Protocol 1 Each Misc MISCELLANE DAILY PRN Per Protocol Protocol Naloxone HCl 0.2 mg 05/09/21 15:01 Naloxone 0.4 Mg/Ml 1 Ml Vial IV Q2M PRN Opioid Reversal Spironolactone 25 mg 05/10/21 09:00 05/10/21 07:58 Spironolactone 25 Mg Tab PO 25 mg DAILY ARIANNA Administration Intake and Output 05/09/21 05/10/21 05/10/21 22:59 06:59 14:59 Output Total 200 100 Balance -200 -100 Output: Urine 200 100 Other: Voiding Method Urinal Diaper # Voids 1 # Bowel Movements 1 2 Weight 58.06 kg 05/10/21 06:03 05/10/21 06:03
[2021-05-10] MEDS ORDERED: SODIUM CHLORIDE 0.9% 500 ML 500 ML IV ONE (13:56)
--- NOTE | 2021-05-10 14:04 | P.PN ---
Subjective This is a pleasant 80 years old male with past medical history of coronary artery disease, CHF, pulmonary embolism and warfarin, history of right-sided pleural effusion status post thoracocentesis 2. Presents because of fall. Patient states that he fell last night at 5 PM going to the restroom, he has some vision difficulty at baseline but says that he was on cautious in the floor for half minutes. He denies dizziness prior to the fall. He states that he hit his right forearm, which of the nose and the left knee and right ankle, patient says that he has difficulty walking because of right ankle sprain. Patient says that he has chronic mild right hemiparesis since with no new weakness, sensation changes, blurred vision, double vision or slurred speech. He denies headache. Denies abdominal pain or vomiting but he has ongoing diarrhea for about 2 months and a half about 15-20 times per day, he denies any blood in his stool and the stool is brown in color Complains from increased frequency of urination but no dysuria He denies smoking, he quit in the 80s were used to smoke 4-5 cigars per day. Or illicit drugs. 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 He sees Dr. Desai for fluid in his leg Supposed to follow up with warp drawer Dr. Gimenez on 06/08 Vitals are stable, systolic blood pressure is 90s to 100. CBC showing only mild anemia with hemoglobin 11.8. INR is elevated at 4.0. BMP showing mild hyponatremia at 132, mild hypokalemia at 3.2, creatinine normal 0.5. Glucose is 100. Lactic acid is elevated 3.4 and 2.3. Liver enzymes not elevated. Troponin 2 are negative for less than 0.012. ProBNP is 6420. Occult blood in the stool is negative EKG showing multiple PVCs with a rate of 72 BPM, QTC is prolonged at 556 s Pelvic x-ray showing no abnormalities Chest x-ray showing no acute process negative right ankle x-ray CT of the head and cervical spine showing spondylitic changes in the cervical spine with no fracture. 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 No acute intracranial abnormality In the emergency room received 500 mL bolus, and continued with normal saline at 100 mL per hour. Echocardiogram from 2019 showing ejection fraction of 20-25%, with moderate to severe mitral regurgitation 05/10/2021 Patient still complaining from diarrhea, he looks dehydrated. No abdominal pain or vomiting. He has about a 15+/- bowel movements. Discussed with staff to check orthostatic vitals. His blood pressure on the low normal side. It was a 81/51 earlier this morning. His lactic acid came back to normal, INR is only slightly less at 3.8 it is still elevated. Trending down to 130. Echocardiogram showed ejection fraction less than 20% and moderate mitral regurgitation Leasing Assistant recommended pacemaker interrogation. Giardia and distal is negative. C. diff is negative stool culture still pending. Urinalysis is negative. TSH is normal at 2.4 Tissue transglutaminase IgA is pending Consults GI team Objective - Vital Signs Vital signs: Vital Signs Temp 97.8 F 05/10/21 07:00 Pulse 70 05/10/21 07:00 Resp 18 05/10/21 07:00 BP 92/55 05/10/21 07:00 Pulse Ox 97 05/10/21 07:00 Intake & Output 05/09/21 05/10/21 05/10/21 18:59 06:59 18:59 Output Total 300 Balance -300 Weight 58.06 kg Output: Urine 300 Other: Voiding Method Urinal Diaper # Voids 1 # Bowel Movements 2 - Exam -GENERAL: The patient is alert and oriented x3, not in any acute distress. Thin built HEENT: Pupils are round and equally reacting to light. EOMI. No scleral icterus. No conjunctival pallor. Normocephalic, atraumatic. No pharyngeal erythema. No thyromegaly. CARDIOVASCULAR: S1 and S2 present. No murmurs, rubs, or gallops. PULMONARY: Chest is clear to auscultation, no wheezing or crackles. ABDOMEN: Soft, nontender, nondistended, normoactive bowel sounds. No palpable organomegaly. MUSCULOSKELETAL: No joint swelling or deformity. EXTREMITIES: No cyanosis, clubbing, or pedal edema. NEUROLOGICAL: Gross neurological examination did not reveal any focal deficits. SKIN: No rashes. no petechiae. - Labs CBC & Chem 7: 05/10/21 06:03 05/10/21 06:03 Labs: Abnormal Lab Results - Last 24 Hours (Table) 05/09/21 05/09/2121 Range/Units 16:27 19:54 06:03 RBC (4.30-5.90) m/uL Hgb (13.0-17.5) gm/dL Hct (39.0-53.0) % Lymphocytes # (1.0-4.8) k/uL PT (9.0-12.0) sec INR (<1.2) Sodium 130 L (137-145) mmol/L Potassium 3.3 L (3.5-5.1) mmol/L BUN 8 L (9-20) mg/dL Creatinine 0.50 L (0.66-1.25) mg/dL Plasma Lactic Acid Ramon 2.3 H* 3.0 H* (0.7-2.0) mmol/L Calcium 8.2 L (8.4-10.2) mg/dL 05/10/21 05/10/21 Range/Units 06:03 06:03 RBC 3.57 L (4.30-5.90) m/uL Hgb 10.4 L (13.0-17.5) gm/dL Hct 31.4 L (39.0-53.0) % Lymphocytes # 0.9 L (1.0-4.8) k/uL PT 36.8 H (9.0-12.0) sec INR 3.8 H (<1.2) Sodium (137-145) mmol/L Potassium (3.5-5.1) mmol/L BUN (9-20) mg/dL Creatinine (0.66-1.25) mg/dL Plasma Lactic Acid Ramon (0.7-2.0) mmol/L Calcium (8.4-10.2) mg/dL Microbiology - Last 24 Hours (Table) 05/09/21 21:50 Stool Culture - Preliminary Stool Assessment and Plan Assessment: Syncope, possible orthostatic hypotension. Rule out cardiac causes Chronic diarrhea for 2 months and a half Dehydration with elevated lactic acid Prolonged QTc with PVC Coagulopathy secondary to Coumadin Pulmonary embolism on Coumadin History of coronary artery disease Chronic systolic CHF with ejection fraction of 20-25% Moderate to severe mitral regurgitation Plan: This is a pleasant 80 years old male who presents with chronic diarrhea and syncope. check orthostatic vitals Check Stool culture and sensitivity. fecal calprotectin, Check tissue transglutaminase immunoglobulin A Check bladder scan Continue with IV hydration Telemetry monitoring Hold Lasix continue with metoprolol and consult cardiology service Labs and medication were reviewed.. Continue same treatment. Continue with symptomatic treatment. Resume home medication. Monitor lytes and vitals. DVT and GI prophylaxis. Further recommendations depends on the clinical course of the patient DVT prophylaxis: On Coumadin GI Prophylaxis: Pepcid PT/OT: Pending Prognosis is guarded
[2021-05-10] MEDS ORDERED: MAGNESIUM SULFATE-D5W PMX 1 GM in DEXTROSE/WATER 1 100ML.BAG IVPB ONE (14:30)
[2021-05-10] MEDS: LOPERAMIDE 2 MG CAP PO SCH ×3 (15:52→21:58)
[2021-05-10] MEDS: SODIUM CHLORIDE 0.9% 1,000 ML IV SCH (15:53)
--- NOTE | 2021-05-10 16:05 | P.CONS ---
History of Present Illness - Reason for Consult Consult date: 05/10/21 Chronic diarrhea Requesting physician: Jerome Hughes Sheet - Chief Complaint fall, injury - History of Present Illness This a 80-year-old male who presented to the emergency department after falling on Monday evening and hurting his foot and right arm. he has a past medical hi story of coronary artery disease, heart failure, I disorder, myocardial infarction, pneumonia, and previous pulmonary embolism.Patient also states he's been having diarrhea for the last 5-6 weeks up to 15-18 times a day. He states they are loose, brown with no blood. States he has tried Imodium which helped in the beginning but has no longer been helping. He states he has never had a colonoscopy. He denies any new medications, no black or blood in his stool. Occasionally sees a little bright red blood with wiping which she relates to hemorrhoids. He denies any abdominal pain or cramping associated with the diarrhea. Denies any recent traveling. C. Difficile negative.stool for occult blood negative. WBC 6.2, hemoglobin 10.4, hematocrit 31, platelet count 233,000, INR 3.8, total bilirubin 1.3, alkaline phosphatase 99, AST 45, ALT 16.he denies any associated nausea or vomiting. He states he has had 4 episodes of stool today. He is unsure if he's had any weight loss. He is tolerating his diet. Review of Systems REVIEW OF SYSTEMS: CARDIOPULMONARY: No chest pain or shortness of breath. Gastrointestinal: No abdominal pain. No nausea or vomiting. No hematemesis, coffee-ground emesis. No rectal bleeding, or melena.diarrhea for 5-6 weeks, 15- 18 per day. GENITOURINARY: No dysuria or hematuria. MUSCULOSKELETAL: Reports normal range of motion., Joint pain. SKIN: No rashes. No jaundice. ENDOCRINE: No chills, fevers. No excessive weight gain or loss. No polydipsia or polyuria. PSYCHIATRIC: Unremarkable. NEUROLOGY: No change in mental status. Denies dizziness, headache.patient had a fall on Monday. ENT: Vision unremarkable. CONSTITUTIONAL: No recent weight loss. No fever, chills, night sweats. Past Medical History Past Medical History: Coronary Artery Disease (CAD), Chest Pain / Angina, Heart Failure, Eye Disorder, Myocardial Infarction (DC), Pneumonia, Pulmonary Embolus (PE) Additional Past Medical History / Comment(s): R side pleural effusions with thoracentesis x2/thorascopy with talc pleurodesis at [facility] per pt, EF 2 0%, recent pneumonia tx with ABX, 1985 pulmonary embolism, occasional back pain. Last Myocardial Infarction Date:: 1989 History of Any Multi-Drug Resistant Organisms: None Reported Past Surgical History: AICD, Cardiac Ablation, Pacemaker, Tonsillectomy Additional Past Surgical History / Comment(s): Thoroscopy with talc pleurodesis R lung, bilateral cataract removals. Past Anesthesia/Blood Transfusion Reactions: No Reported Reaction Additional Past Anesthesia/Blood Transfusion Reaction / Comm: Pt thinks he has received blood in past without reaction. Type of Cardiac Device: Permanent Pacemaker, AICD Device Placement Date:: 2015 Past Psychological History: No Psychological Hx Reported Additional Psychological History / Comment(s): Pt resides with his spouse. He uses no assistive device. He no longer drives, spouse drives. Smoking Status: Former smoker, Smoker, current status unknown Past Alcohol Use History: Occasional Additional Past Alcohol Use History / Comment(s): Pt cannot recall when he started smoking but it was cigars and he states he quit years ago but cannot recall what year. Pt states he used to drink 6-8 beers/day but quit all alcohol 2 yrs ago. Past Drug Use History: None Reported - Past Family History Mother Family Medical History: No Reported History Brother(s) Family Medical History: Cancer Father Additional Family Medical History / Comment(s): Ben had a colostomy. Medications and Allergies Home Medications Medication Instructions Recorded Confirmed Type Folic Acid 0.8 mg PO DAILY 03/01/19 05/09/21 History Furosemide [Lasix] 40 mg PO DAILY 03/01/19 05/09/21 History Melatonin 10 mg PO HS 12/02/19 05/09/21 History Metoprolol Succinate (ER) [Toprol 25 mg PO DAILY #30 tab.er.24h 12/04/19 05/09/21 Rx XL] Spironolactone [Aldactone] 25 mg PO DAILY #60 tab 12/04/19 05/09/21 Rx Warfarin [Coumadin] 1.25 mg PO SUTUTHFRSA 05/09/21 05/09/21 History Warfarin [Coumadin] 2.5 mg PO MOWE 05/09/21 05/09/21 History Allergies Allergy/AdvReac Type Severity Reaction Status Date / Time No Known Allergies Allergy Verified 05/09/21 13:42 Physical Exam Vitals: Vital Signs Temp Pulse Pulse Pulse Resp BP BP 05/10/21 07:00 97.8 F 70 18 92/55 05/10/21 00:26 98.1 F 69 20 92/57 05/09/21 19:09 98.7 F 72 22 81/51 05/09/21 16:44 20 05/09/21 15:47 98.1 F 81 16 97/56 05/09/21 15:28 73 20 100/68 05/09/21 14:21 80 20 101/68 05/09/21 13:21 71 20 90/65 05/09/21 12:13 98.1 F 71 20 99/66 Pulse Ox 05/10/21 07:00 97 05/10/21 00:26 97 05/09/21 19:09 98 05/09/21 16:44 05/09/21 15:47 100 05/09/21 15:28 97 05/09/21 14:21 97 05/09/21 13:21 97 05/09/21 12:13 Intake and Output 05/09/21 05/10/21 05/10/21 22:59 06:59 14:59 Output Total 200 100 Balance -200 -100 Output: Urine 200 100 Other: Voiding Method Urinal Diaper # Voids 1 # Bowel Movements 1 2 Weight 58.06 kg General appearance: The patient is alert, oriented, appears in no acute distress. HET: Head is normocephalic and atraumatic. Conjunctiva pink. Sclera anicteric. Neck: Supple without lymphadenopathy. Trachea midline. Heart: S1 S2. Regular rate and rhythm. Lungs: Clear to auscultation. Abdomen: Soft,non-tender, mildly distended with bowel sounds. No guarding or rigidity. Skin: No rashes. No jaundice. Extremities: Normal skin color and turgor. No pedal edema. Neurological: No focal deficits. Alert and oriented 3.. Results CBC & Chem 7: 05/10/21 06:03 05/10/21 06:03 Labs: Abnormal Lab Results - Last 24 Hours (Table) 05/09/21 05/09/21 05/09/21 Range/Units 12:32 12:32 12:32 RBC 4.05 L (4.30-5.90) m/uL Hgb 11.8 L (13.0-17.5) gm/dL Hct 35.0 L (39.0-53.0) % Lymphocytes # (1.0-4.8) k/uL PT 38.2 H (9.0-12.0) sec INR 4.0 H (<1.2) Sodium 132 L (137-145) mmol/L Potassium 3.2 L (3.5-5.1) mmol/L Chloride 94 L (98-107) mmol/L BUN (9-20) mg/dL Creatinine 0.58 L (0.66-1.25) mg/dL Glucose 100 H (74-99) mg/dL Plasma Lactic Acid Ramon (0.7-2.0) mmol/L Calcium (8.4-10.2) mg/dL Albumin 3.1 L (3.5-5.0) g/dL 05/09/21 05/09/21 05/09/21 Range/Units 12:32 16:27 19:54 RBC (4.30-5.90) m/uL Hgb (13.0-17.5) gm/dL Hct (39.0-53.0) % Lymphocytes # (1.0-4.8) k/uL PT (9.0-12.0) sec INR (<1.2) Sodium (137-145) mmol/L Potassium (3.5-5.1) mmol/L Chloride (98-107) mmol/L BUN (9-20) mg/dL Creatinine (0.66-1.25) mg/dL Glucose (74-99) mg/dL Plasma Lactic Acid Ramon 3.4 H* 2.3 H* 3.0 H* (0.7-2.0) mmol/L Calcium (8.4-10.2) mg/dL Albumin (3.5-5.0) g/dL 05/10/21 05/10/21 05/10/21 Range/Units 06:03 06:03 06:03 RBC 3.57 L (4.30-5.90) m/uL Hgb 10.4 L (13.0-17.5) gm/dL Hct 31.4 L (39.0-53.0) % Lymphocytes # 0.9 L (1.0-4.8) k/uL PT 36.8 H (9.0-12.0) sec INR 3.8 H (<1.2) Sodium 130 L (137-145) mmol/L Potassium 3.3 L (3.5-5.1) mmol/L Chloride (98-107) mmol/L BUN 8 L (9-20) mg/dL Creatinine 0.50 L (0.66-1.25) mg/dL Glucose (74-99) mg/dL Plasma Lactic Acid Ramon (0.7-2.0) mmol/L Calcium 8.2 L (8.4-10.2) mg/dL Albumin (3.5-5.0) g/dL Microbiology - Last 24 Hours (Table) 05/09/21 21:50 Stool Culture - Preliminary Stool Assessment and Plan (1) Diarrhea Narrative/Plan: M.D. 10-year-old white male who presented to the emergency department after having a fall on Monday and complaints of diarrhea for the last 5-6 weeks duration. He states he is having up to 15-18 episodes of nonbloody, non-mucousy loose stool. He has been taking Imodium at home without any good relief. He denies any abdominal pain or cramping associated with the diarrhea. He denies any nausea or vomiting. He denies any sick contacts, any recent traveling, or new medications. Unknown etiology for diarrhea at this time. C. difficile was negative, occult stool was negative for blood, stool studies are currently pending. discussed with patient would recommend colonoscopy as he has not had a previous colonoscopy and he has been having significant amounts of diarrhea up to 15-18 per day. The patient is refusing a colonoscopy at this time. Will proceed with stool studies and will add Imodium and Questran. Current Visit: Yes Status: Acute Code(s): R19.7 - DIARRHEA, UNSPECIFIED SNOMED Code(s): 93780437 Plan: 1. Continue diet as tolerated 2. Continue symptomatic and supportive care 3. Imodium and Questran ordered 4. Stool studies pending 5. Discussed with patient and recommended colonoscopy for further evaluation of chronic diarrhea, patient is refusing at this time. Thank you for this consultation, we will continue to follow. Dr. Junior Amin I agree with the dictator's note, documented as a scribe by Joan Frost.
[2021-05-10] MEDS ORDERED: WARFARIN 2.5 MG TAB PO SCH (17:43)
[2021-05-10] MEDS: CHOLESTYRAMINE (WITH SUGAR) 4 GM PACKET PO SCH (17:46)
[2021-05-10] MEDS ORDERED: WARFARIN 0.5 MG TAB PO ONE (18:00)
[2021-05-11 02:29] VITALS: RESP 16
[2021-05-11] MEDS: SODIUM CHLORIDE 0.9% 1,000 ML IV SCH ×2 (05:09→15:52)
[2021-05-11] MEDS: FOLIC ACID 1 MG TAB PO SCH (07:19)
[2021-05-11] MEDS: FUROSEMIDE 40 MG TAB PO SCH (07:19)
[2021-05-11] MEDS: FAMOTIDINE 20 MG/2 ML VIAL IV SCH (07:19)
[2021-05-11] MEDS: LOPERAMIDE 2 MG CAP PO SCH ×3 (07:20→17:38)
[2021-05-11] MEDS: METOPROLOL SUCCINATE (ER) 25 MG TAB.ER.24H PO SCH (07:20)
[2021-05-11] MEDS: SPIRONOLACTONE 25 MG TAB PO SCH (07:20)
[2021-05-11] MEDS: CHOLESTYRAMINE (WITH SUGAR) 4 GM PACKET PO SCH ×2 (07:20→17:38)
[2021-05-11 07:36] LABS: INR 3.4 (<1.2); Prothrombin Time 33.1 sec (9.0-12.0)
--- NOTE | 2021-05-11 09:38 | P.PN ---
Subjective Progress Note Date: 05/11/21 Principal diagnosis: Diarrhea MB 10-year-old male who presented to the hospital after having a fall with also complaints of chronic diarrhea for the last 5-6 weeks duration. He was offered a colonoscopy yesterday however declined as he does not want to undergo a colonoscopy or the prep. Today he states his diarrhea is improving, he states he does not have the urge like he had the previous days. He had one bowel movement this morning. He has been started on Imodium and Questran. He denies any abdominal pain, nausea, or vomiting. Objective - Vital Signs Vital signs: Vital Signs Temp 97.7 F 05/11/21 08:06 Pulse 76 05/11/21 08:06 Resp 16 05/11/21 08:06 BP 91/56 05/11/21 08:06 Pulse Ox 97 05/11/21 07:00 Intake & Output 05/10/21 05/11/21 05/11/21 18:59 06:59 18:59 Intake Total 100 Output Total 401 Balance -301 Intake: Oral 100 Output: Urine 400 Stool 1 Other: Voiding Method Urinal Diaper # Voids 1 1 # Bowel Movements 5 - Exam General appearance: The patient is alert, oriented, appears in no acute distress. HET: Head is normocephalic and atraumatic. Conjunctiva pink. Sclera anicteric. Neck: Supple without lymphadenopathy. Abdomen: Soft, nontender, mildly distended with bowel sounds. No guarding or rigidity. Extremities: Normal skin color and turgor. No pedal edema Skin: No rashes, no jaundice Neurological: No focal deficits. Alert and oriented 3. - Labs CBC & Chem 7: 05/10/21 06:03 05/10/21 06:03 Labs: Abnormal Lab Results - Last 24 Hours (Table) 05/11/21 Range/Units 06:41 PT 33.1 H (9.0-12.0) sec INR 3.4 H (<1.2) Microbiology - Last 24 Hours (Table) 05/09/21 21:50 Stool Culture - Preliminary Stool Assessment and Plan (1) Diarrhea Narrative/Plan: Adrian 10-year-old white male who presented to the emergency department after having a fall on Monday and complaints of diarrhea for the last 5-6 weeks duration. He states he is having up to 15-18 episodes of nonbloody, non-mucousy loose stool. He has been taking Imodium at home without any good relief. He denies any abdominal pain or cramping associated with the diarrhea. He denies any nausea or vomiting. He denies any sick contacts, any recent traveling, or new medications. Unknown etiology for diarrhea at this time. C. difficile was negative, occult stool was negative for blood, stool studies are currently pending. discussed with patient would recommend colonoscopy as he has not had a previous colonoscopy and he has been having significant amounts of diarrhea up to 15-18 per day. The patient is refusing a colonoscopy at this time. Will proceed with stool studies and will add Imodium and Questran. Current Visit: Yes Status: Acute Code(s): R19.7 - DIARRHEA, UNSPECIFIED SNOMED Code(s): 71325946 Plan: 1. Continue diet as tolerated 2. Continue symptomatic and supportive care 3. Continue Imodium and Questran 4. Stool studies negative to date 5. Discussed with patient and recommended colonoscopy for further evaluation of chronic diarrhea, if diarrhea does not improve. However at this time, diarrhea improving. Thank you for this consultation, patient is cleared for discharge. Dr. Junior Amin I agree with the dictator's note, documented as a scribe by Joan Frost.
--- NOTE | 2021-05-11 11:03 | P.PN ---
Subjective Progress Note Date: 05/11/21 HISTORY OF PRESENT ILLNESS: This is a 80-year-old male with a past medical history significant for ischemic cardiomyopathy, AICD implantation, coronary artery disease, and DVT on Coumadin. Patient follows with a manager creative in [place], Dr. Birmingham. We have been asked to see the patient in consultation for syncope. Patient examined at the bedside. Patient states he was walking at his house yesterday when he tripped over an end table and fell. He states he may have lost consciousness for 1 or 2 seconds. He denies any dizziness or lightheadedness. Denies chest pain or pressure. He denies shortness of breath. EKG reveals sinus mechanism with left bundle branch block, unchanged from previous EKG Chest xray negative for acute process Laboratory data: WBC 6.2. Hemoglobin 10.4. Platelet count 233. INR 3.8. Sodium 130. Potassium 3.3. BUN 8. Creatinine 0.50 lactic acid 3.4 on admission. Most recent 1.7. Troponin negative 2 Current home cardiac medications include Coumadin 2.5 mg Monday and Monday and 1.25 mg Monday and Monday, Aldactone 25 mg daily, metoprolol succinate 25 mg daily, Lasix 40 mg daily Echocardiogram completed revealing ejection fraction less than 20%. Severe global hypokinesis of LV. Moderate mitral regurgitation. Mild tricuspid regurgitation. 05/11/2021 Patient denies chest pain or pressure. Denies shortness of breath. Echocardiogram reviewed. Orthostatics obtained and were unremarkable. ICD interrogation is pending. INR 3.4. PHYSICAL EXAM: VITAL SIGNS: Reviewed. GENERAL: Well-developed in no acute distress. HEENT: Head is normocephalic. Pupils are equal, round. Sclerae anicteric. Mucous membranes of the mouth are moist. Neck supple. No JVD or thyromegaly LUNGS: Respirations even and unlabored. Lungs essentially clear to auscultation bilaterally. HEART: Regular rate and rhythm. S1 and S2 heard. EXTREMITIES: Normal range of motion. No clubbing or cyanosis. Peripheral pulses intact. No lower extremity edema ASSESSMENT: Chronic diarrhea S/P fall with questionable loss of consciousness Ischemic cardiomyopathy with previous AICD implantation Coronary artery disease DVT on Coumadin Supratherapeutic INR Chronic systolic heart failure PLAN: Continue current cardiac medications Monitor INR. Resume Coumadin when coagulopathy resolves Interrogate AICD Further recommendations pending patient's course Nurse practitioner note has been reviewed by physician. Signing provider agrees with the documented findings, assessment, and plan of care. Objective - Vital Signs Vital signs: Vital Signs Temp 97.7 F 05/11/21 08:06 Pulse 76 05/11/21 08:06 Resp 16 05/11/21 08:06 BP 91/56 05/11/21 08:06 Pulse Ox 97 05/11/21 07:00 Intake & Output 05/10/21 05/11/21 05/11/21 18:59 06:59 18:59 Intake Total 100 Output Total 401 Balance -301 Intake: Oral 100 Output: Urine 400 Stool 1 Other: Voiding Method Urinal Diaper # Voids 1 1 # Bowel Movements 5 - Labs CBC & Chem 7: 05/10/21 06:03 05/10/21 06:03 Labs: Abnormal Lab Results - Last 24 Hours (Table) 05/11/21 Range/Units 06:41 PT 33.1 H (9.0-12.0) sec INR 3.4 H (<1.2) Microbiology - Last 24 Hours (Table) 05/09/21 21:50 Stool Culture - Preliminary Stool
[2021-05-11 14:41] VITALS: BP 86/53; PULSE 81; TEMP 97.4
[2021-05-11] MEDS ORDERED: POTASSIUM CHLORIDE ER 20 MEQ TAB.ER PO STA (15:36)
[2021-05-11] MEDS ORDERED: MAGNESIUM SULFATE-D5W PMX 1 GM in DEXTROSE/WATER 1 100ML.BAG IVPB ONE (15:36)
[2021-05-11] MEDS ORDERED: WARFARIN 0.5 MG TAB PO ONE (18:00)
[2021-05-11] MEDS ORDERED: FAMOTIDINE 20 MG TAB PO SCH (21:00)
--- NOTE | 2021-05-12 06:45 | P.DS ---
Providers Date of admission: 05/09/21 15:01 Attending physician: Jerome Victoria MD Consults: 05/09/21 20:51 Consult Physician Routine Consulting Provider: Abhilash Amin Consult Reason/Comments: Syncope with abnormal EKG Do you want consulting provider notified?: Yes, Notify in am 05/10/21 10:57 Consult Physician Routine Consulting Provider: Alberta Amin Consult Reason/Comments: chronic diarrhea over 3 months Do you want consulting provider notified?: Yes Primary care physician: Physician Nonstaff Hospital Course: Fall with possible Syncope, possible orthostatic hypotension. Secondary to d iarrhea. Current it causes ruled out Chronic diarrhea for 2 months and a half Dehydration with elevated lactic acid Prolonged QTc with PVC. Status post pacemaker interrogation which was unremarkable Coagulopathy secondary to Coumadin. Dose adjusted History of Pulmonary embolism on Coumadin History of coronary artery disease Chronic systolic CHF with ejection fraction of 20-25% Moderate to severe mitral regurgitation diagnoses Hospital course: This is a pleasant 80 years old male with past medical history of coronary artery disease, CHF, pulmonary embolism and warfarin, history of right-sided pleural effusion status post thoracocentesis 2. Presents because of fall. Patient states that he fell last night at 5 PM going to the restroom, he has some vision difficulty at baseline but says that he was unconscious in the floor for half minutes. He denies dizziness prior to the fall. His client success director is Dr. Birmingham from [facility]. He sees Dr. Desai for fluid in his leg, he Supposed to follow up with new PCP Dr. Gimenez on 06/08 Also patient is complaining of from chronic diarrhea for 2.5 months with no abdominal pain or nausea vomiting. Patient was treated with IV fluids, he was evaluated by cardiology and GI services. He underwent extensive GI workup which came back unremarkable, including negative stool Giardia antigen Occult blood in the stool is negative, transglutaminase IgA is also negative. C. diff is negative. Patient with no leukocytosis or fever so infection suspicion is very low and patient does not need antibiotics. Patient received Imodium and Questran and his diarrhea significantly improved, orthostatic vitals checked after treatment and were negative. GI service recommended colonoscopy but patient declined. Eventually GI service cleared the patient for discharge due to improvement He has left upper chest pacemaker/defibrillator which was interrogated by client success director and it was uneventful. Also cardiology services cleared the pt for discharge He is on Coumadin for history of PE, presents with supratherapeutic INR at 4. INR was monitored and Coumadin was held. Improved INR down to 3.4 on the day of discharge. Goal INR is 2-3 and patient and at bedside was informed. Once contacted his client success director office Dr. Birmingham and they recommended to cut his Coumadin dose to half tablet which is 1.25 mg daily. Usually patient takes 1.5 daily except Monday and Monday he takes double dose of 2.5. because INR was 3.4 was instructed to hold his Coumadin tonight and to resume it tomorrow at 1.5 mg daily, also patient and were both instructed to check his INR in 2-3 days and then for presents to his PCP Dr. Gimenez or client success director Dr. Birmingham and both verbalized understanding and acceptance On the day of discharge patient denies dizziness, no headache, no new weakness or numbness. No chest pain or dyspnea. No abdominal pain or nausea vomiting. He was able to eat 100% of his meals no fever. Patient was eager to go home today and does not want to wait until next day since he got cleared by both GI and cardiology service he was at adamant to leave and discharge as above patient was cleared for discharge by cardiology and GI services Problems and management plan were discussed with the patient and he verbalized understanding and acceptance Patient was found stable and can be discharged home and guarded prognosis however he needs follow-up as an outpatient. Patient was instructed to follow up with PCP Dr. Gimenez within one week and patient agrees. He has appointment on 06/08, patient and were instructed to Call and make Appointment within 1 week and they agree. Office was close at the time of discharge after 3 PM Patient also was instructed to follow up with GI Dr. Amin on 06/30 and patient and agree with this appointment And also instructed to follow up with his client success director Dr. Birmingham within 1 to 2 weeks and patient and agree to call and make appointment Physical exam Gen: patient is a AAOx3, no distress CVS: S1-S2, RRR, no murmur Lungs: B/L CTA, no wheezing Abdomen: soft, no distention, no tenderness, positive bowel sounds Extremity: no leg edema or induration Time spent more than 35 minutes Patient Condition at Discharge: Fair Plan - Discharge Summary Discharge Rx Participant: Yes New Discharge Prescriptions: New Acetaminophen Tab [Tylenol] 650 mg PO Q6HR PRN tab PRN Reason: Mild Pain Or Fever > 100.5 Loperamide [Imodium] 2 mg PO QID #40 cap Famotidine [Pepcid] 20 mg PO BID #20 tab Cholestyramine (with Sugar) [Questran Packet] 4 gm PO BID@1000,1800 #20 packet Continue Furosemide [Lasix] 40 mg PO DAILY Folic Acid 0.8 mg PO DAILY Spironolactone [Aldactone] 25 mg PO DAILY #60 tab Metoprolol Succinate (ER) [Toprol XL] 25 mg PO DAILY #30 tab.er.24h Changed Warfarin [Coumadin] 1.25 mg PO DAILY #30 tab Discontinued Melatonin 10 mg PO HS Warfarin [Coumadin] 2.5 mg PO MOWE Discharge Medication List Folic Acid 0.8 mg PO DAILY 03/01/19 [History] Furosemide [Lasix] 40 mg PO DAILY 03/01/19 [History] Metoprolol Succinate (ER) [Toprol XL] 25 mg PO DAILY #30 tab.er.24h 12/04/19 [Rx] Spironolactone [Aldactone] 25 mg PO DAILY #60 tab 12/04/19 [Rx] Acetaminophen Tab [Tylenol] 650 mg PO Q6HR PRN tab 05/11/21 [Rx] Cholestyramine (with Sugar) [Questran Packet] 4 gm PO BID@1000,1800 #20 packet 05/11/21 [Rx] Famotidine [Pepcid] 20 mg PO BID #20 tab 05/11/21 [Rx] Loperamide [Imodium] 2 mg PO QID #40 cap 05/11/21 [Rx] Warfarin [Coumadin] 1.25 mg PO DAILY #30 tab 05/11/21 [Rx] Follow up Appointment(s)/Referral(s): Antony Birmingham DO [REFERRING] - 10 Days Alberta Amin MD [STAFF PHYSICIAN] - 06/30/21 2:15 pm Raymond Salmeron DO [REFERRING] - 1 Week Ambulatory/Diagnostic Orders: Prothrombin Time INR [LAB.AMB] Time Frame: 2 Days, Location: None Selected Patient Instructions/Handouts: Chronic Diarrhea (GEN) Activity/Diet/Wound Care/Special Instructions: Hold Coumadin dose tonight (05/11) , resume Coumadin dose tomorrow (05/12 ) at 1.25 mg daily Check your INR in 2-3 days (with home health care ) and report the results to your client success director and/or primary care doctor Dr. Gimenez your goal INR is (2-3) if your INR more than 3.0, then stop taking coumadin for that day and talk to your doctor immediately Heart healthy diet Activity is restricted until you see your doctor Discharge Disposition: HOME WITH HOME HEALTH SERVICES
== END 2021-05-11 19:06 | disposition home health service (06) ==
LOC: EC 12:08 → 6NMEDSUR 15:01
PROVIDERS: ADMIT Internal Medicine; ATTEND Internal Medicine
DX: E87.2 Acidosis (principal); D64.9 Anemia, unspecified; E86.0 Dehydration; E87.1 Hypo-osmolality and hyponatremia; E87.6 Hypokalemia; K52.9 Noninfective gastroenteritis and colitis, unspecified; G81.91 Hemiplegia, unspecified affecting right dominant side; I25.10 Atherosclerotic heart disease of native coronary artery without angina pectoris; I25.2 Old myocardial infarction; I25.5 Ischemic cardiomyopathy; I26.99 Other pulmonary embolism without acute cor pulmonale; I34.0 Nonrheumatic mitral (valve) insufficiency; I44.7 Left bundle-branch block, unspecified; I50.22 Chronic systolic (congestive) heart failure; K64.9 Unspecified hemorrhoids; R79.1 Abnormal coagulation profile; S93.401A Sprain of unspecified ligament of right ankle, initial encounter; T45.515A Adverse effect of anticoagulants, initial encounter; W01.0XXA Fall on same level from slipping, tripping and stumbling without subsequent striking against object, initial encounter; Y93.01 Activity, walking, marching and hiking; Z79.01 Long term (current) use of anticoagulants; Z79.899 Other long term (current) drug therapy; Z86.711 Personal history of pulmonary embolism; Z86.73 Personal history of transient ischemic attack (TIA), and cerebral infarction without residual deficits; Z87.01 Personal history of pneumonia (recurrent); Z87.891 Personal history of nicotine dependence; Z95.0 Presence of cardiac pacemaker; Z95.810 Presence of automatic (implantable) cardiac defibrillator
CPT/HCPCS: 99285; 96376; 96361 ×2; 96365; 96366 ×2; 96375; 36415; 93005; 97530; 97162; 97535; 97166; 86900; 86901; 83880; 80053; 80048; 84443; 83605 ×2; 83735 ×2; 84484; 85025 ×2; 85610 ×3; 85730; 86850; 82272; 81003; 87324; 83993; 87045; 87329; 87046; 83516; 72170; 73610; 71045; 72125; 70450; G0378 ×3; C8929; J3475 ×2; Q9950; 93306

== ENCOUNTER 2021-11-06 22:02 | Inpatient (IN) | payer MEDICARE ==
[2021-11-06] MEDS ORDERED: MORPHINE SULFATE 2 MG/ML SYRINGE IVP STA (22:25)
[2021-11-06] MEDS ORDERED: ONDANSETRON 4 MG/2 ML VIAL IVP STA (22:25)
--- NOTE | 2021-11-06 23:30 | CT ---
EXAMINATION TYPE: CT abdomen pelvis wo con DATE OF EXAM: 11/06/2021 COMPARISON: None HISTORY: LLQ abd pain CT DLP: 345.1 mGycm Automated exposure control for dose reduction was used. Images obtained from the diaphragm to the floor the pelvis without contrast. Lung bases are clear of consolidation. Heart is enlarged. There are some calcified pleural plaque at the right lung base. There is no pleural effusion.There are numerous calcified gallstones. Spleen is intact. There is no pancreatic mass. The stomach is intact. The bile ducts are not dilated. Liver is somewhat irregular that could relate to some sclerosis. There is no adrenal mass. Kidneys have normal size. There is no hydronephrosis. Abdominal aorta is at heromatous. There is no retroperitoneal adenopathy. Ureters are not dilated. There is no inguinal her saman. There is moderate vascular calcification. There is long segment of wall thickening of the distal sigmoid colon. There is dilated large bowel wi th retained fecal material and air and fluid levels. There is no free fluid in the pelvis. Appendix i s partially filled with air and appears normal. Small bowel is not dilated. There is no evidence of f ree air. There is no ascites. There is some air in the urinary bladder probably from catheterization. The lumbar vertebra show normal alignment. There is L1 anterior wedging 25%. The posterior limits are intact. There is T11 osteosclerotic focus measuring 1.5 cm in the vertebral body. The bony pelvis is intact. IMPRESSION: There is 8 cm segment of distal sigmoid colon with significant wall thickening. There is evidence for mechanical large bowel obstruction. This is suspicious for tumor. Follow-up recommended. Mild L1 compression fracture. Osteoblastic change at the T11 vertebral body is nonspecific. There are changes in the liver suggestive of cirrhosis. Cholelithiasis. Calcifying pleural plaque at the right diaphragm.
[2021-11-07 00:08] LABS: Basophils # (A) 0.1 k/uL (0-0.2); Basophils % (A) 0 %; Eosinophils % (A) 0 %; HCT 39.1 % (39.0-53.0); HGB 12.6 gm/dL (13.0-17.5); Lymphocytes # (A) 0.9 k/uL (1.0-4.8); Lymphocytes % (A) 6 %; MCH 28.5 pg (25.0-35.0); MCHC 32.2 g/dL (31.0-37.0); MCV 88.6 fL (80.0-100.0); Mean Platelet Volume 7.9; Monocytes # (A) 1.1 k/uL (0-1.0); Monocytes % (A) 7 %; Neutrophils # (A) 12.4 k/uL (1.3-7.7); Neutrophils % (A) 85 %; Platelet Count 353 k/uL (150-450); RBC 4.41 m/uL (4.30-5.90); RDW 13.9 % (11.5-15.5); WBC 14.6 k/uL (3.8-10.6)
[2021-11-07 00:25] LABS: ALT 15 U/L (4-49); AST 29 U/L (17-59); African American GFR (CKD) >90 (>60 ml/min/1.73 sqM); Albumin 2.5 g/dL (3.5-5.0); Alkaline Phosphatase 96 U/L (38-126); Amylase 43 U/L (30-110); Anion Gap 9 mmol/L; Blood Urea Nitrogen 25 mg/dL (9-20); Calcium 8.3 mg/dL (8.4-10.2); Carbon Dioxide 21 mmol/L (22-30); Chloride 101 mmol/L (98-107); Glucose 130 mg/dL (74-99); Lipase 17 U/L (23-300); Non-African American GFR(CKD) >90 (>60 ml/min/1.73 sqM); Potassium 3.8 mmol/L (3.5-5.1); Sodium 131 mmol/L (137-145); Total Bilirubin 1.6 mg/dL (0.2-1.3); Total Protein 6.2 g/dL (6.3-8.2)
[2021-11-07] MEDS ORDERED: ONDANSETRON 4 MG/2 ML VIAL IVP PRN (00:54)
[2021-11-07] MEDS ORDERED: NALOXONE 0.4 MG/ML 1 ML VIAL IV PRN (00:54)
[2021-11-07] MEDS ORDERED: MORPHINE SULFATE 4 MG/ML SYRINGE IV PRN (00:54)
--- NOTE | 2021-11-07 01:27 | ED ---
Abdominal Pain HPI - General Chief Complaint: Abdominal Pain Stated Complaint: Abdominal pain Time Seen by Provider: 11/06/21 22:13 Source: patient Mode of arrival: wheelchair - History of Present Illness Initial Comments: This patient is an 81-year-old man with lower abdominal pain which started over a day ago worsening today into tonight. The patient also has had nausea and he did have episode of vomiting. Patient states she noticed pain into the left lower quadrant and was wearing about possibility of hernia. Patient's had not noted change in urine. No dark tarry or bloody stools. Patient states that he may have had a little bit of blood with one episode of vomiting that he did have. MD Complaint: abdominal pain Onset/Timin -: days(s) Location: LLQ, RLQ, suprapubic Radiation: none Migration to: no migration Severity: moderate Quality: aching Consistency: constant Improves With: nothing Worsens With: nothing Associated Symptoms: nausea - Related Data Home Medications Medication Instructions Recorded Confirmed Folic Acid 0.8 mg PO DAILY 03/01/19 05/09/21 Furosemide [Lasix] 40 mg PO DAILY 03/01/19 05/09/21 Previous Rx's Medication Instructions Recorded Metoprolol Succinate (ER) [Toprol 25 mg PO DAILY #30 tab.er.24h 12/04/19 XL] Spironolactone [Aldactone] 25 mg PO DAILY #60 tab 12/04/19 Acetaminophen Tab [Tylenol] 650 mg PO Q6HR PRN tab 05/11/21 Cholestyramine (with Sugar) 4 gm PO BID@1000,1800 #20 packet 05/11/21 [Questran Packet] Famotidine [Pepcid] 20 mg PO BID #20 tab 05/11/21 Loperamide [Imodium] 2 mg PO QID #40 cap 05/11/21 Warfarin [Coumadin] 1.25 mg PO DAILY #30 tab 05/11/21 Allergies Allergy/AdvReac Type Severity Reaction Status Date / Time No Known Allergies Allergy Verified 11/06/21 22:08 Review of Systems ROS Statement: Those systems with pertinent positive or pertinent negative responses have been documented in the HPI. ROS Other: All systems not noted in ROS Statement are negative. Constitutional: Denies: fever, chills Respiratory: Denies: cough, dyspnea Cardiovascular: Denies: chest pain, palpitations, edema, syncope Gastrointestinal: Reports: abdominal pain, nausea, diarrhea. Denies: vomiting, constipation, melena, hematochezia Genitourinary: Reports: testicular pain. Denies: dysuria, frequency, hematuria Musculoskeletal: Denies: back pain Skin: Denies: rash Neurological: Denies: headache, weakness Past Medical History Past Medical History: Coronary Artery Disease (CAD), Chest Pain / Angina, Heart Failure, Eye Disorder, Myocardial Infarction ([place]), Pneumonia, Pulmonary Embolus ([place]) Additional Past Medical History / Comment(s): R side pleural effusions with thoracentesis x2/thorascopy with talc pleurodesis at [facility] per pt, EF 20%, recent pneumonia tx with ABX, 1985 pulmonary embolism, occasional back pain. Last Myocardial Infarction Date:: 1989 History of Any Multi-Drug Resistant Organisms: None Reported Past Surgical History: AICD, Cardiac Ablation, Pacemaker, Tonsillectomy Additional Past Surgical History / Comment(s): Thoroscopy with talc pleurodesis R lung, bilateral cataract removals. Past Anesthesia/Blood Transfusion Reactions: No Reported Reaction Additional Past Anesthesia/Blood Transfusion Reaction / Comment(s): Pt thinks he has received blood in past without reaction. Type of Cardiac Device: Permanent Pacemaker, AICD Device Placement Date:: 2015 Past Psychological History: No Psychological Hx Reported Smoking Status: Former smoker, Smoker, current status unknown Past Alcohol Use History: Occasional Past Drug Use History: None Reported - Past Family History Mother Family Medical History: No Reported History Brother(s) Family Medical History: Cancer Father Additional Family Medical History / Comment(s): Ben had a colostomy. General Exam General appearance: alert, in no apparent distress Head exam: Present: atraumatic, normocephalic Eye exam: Present: normal appearance Neck exam: Present: normal inspection Respiratory exam: Present: normal lung sounds bilaterally. Absent: respiratory distress, wheezes, rales, rhonchi, stridor Cardiovascular Exam: Present: regular rate, irregular rhythm, systolic murmur. Absent: diastolic murmur, rubs, gallop GI/Abdominal exam: Present: soft, tenderness (Left lower quadrant), diminished bowel sounds. Absent: distended, guarding, rebound, rigid, mass, pulsatile mass, hernia Extremities exam: Present: normal inspection, normal capillary refill. Absent: pedal edema, calf tenderness Back exam: Present: normal inspection. Absent: CVA tenderness (R), CVA tenderness (L) Neurological exam: Present: alert Skin exam: Present: warm, dry, intact, normal color. Absent: rash Course Vital Signs 11/06/21 22:04 Temperature 97.8 F Pulse Rate 98 Respiratory 17 Rate Blood Pressure 92/62 O2 Sat by Pulse 98 Oximetry Procedures - Hazel Protocol (Time Out) Nurse: Antony Aceves Medical Decision Making - Lab Data Result diagrams: 11/06/21 22:52 11/06/21 22:52 Lab Results 11/06/21 11/06/21 11/06/21 Range/Units 22:52 22:52 22:52 WBC 14.6 H (3.8-10.6) k/uL RBC 4.41 (4.30-5.90) m/uL Hgb 12.6 L (13.0-17.5) gm/dL Hct 39.1 (39.0-53.0) % MCV 88.6 (80.0-100.0) fL MCH 28.5 (25.0-35.0) pg MCHC 32.2 (31.0-37.0) g/dL RDW 13.9 (11.5-15.5) % Plt Count 353 (150-450) k/uL MPV 7.9 Neutrophils % 85 % Lymphocytes % 6 % Monocytes % 7 % Eosinophils % 0 % Basophils % 0 % Neutrophils # 12.4 H (1.3-7.7) k/uL Lymphocytes # 0.9 L (1.0-4.8) k/uL Monocytes # 1.1 H (0-1.0) k/uL Eosinophils # 0.0 (0-0.7) k/uL Basophils # 0.1 (0-0.2) k/uL Sodium 131 L (137-145) mmol/L Potassium 3.8 (3.5-5.1) mmol/L Chloride 101 (98-107) mmol/L Carbon Dioxide 21 L (22-30) mmol/L Anion Gap 9 mmol/L BUN 25 H (9-20) mg/dL Creatinine 0.58 L (0.66-1.25) mg/dL Est GFR (CKD-EPI)AfAm >90 (>60 ml/min/1.73 sqM) Est GFR (CKD-EPI)NonAf >90 (>60 ml/min/1.73 sqM) Glucose 130 H (74-99) mg/dL Lactic Ac Sepsis Rflx Plasma Lactic Acid Ramon 2.5 H* (0.7-2.0) mmol/L Calcium 8.3 L (8.4-10.2) mg/dL Total Bilirubin 1.6 H (0.2-1.3) mg/dL AST 29 (17-59) U/L ALT 15 (4-49) U/L Alkaline Phosphatase 96 (38-126) U/L Troponin I (0.000-0.034) ng/mL Total Protein 6.2 L (6.3-8.2) g/dL Albumin 2.5 L (3.5-5.0) g/dL Amylase 43 (30-110) U/L Lipase 17 L (23-300) U/L 11/06/21 11/07/21 Range/Units 22:52 00:33 WBC (3.8-10.6) k/uL RBC (4.30-5.90) m/uL Hgb (13.0-17.5) gm/dL Hct (39.0-53.0) % MCV (80.0-100.0) fL MCH (25.0-35.0) pg MCHC (31.0-37.0) g/dL RDW (11.5-15.5) % Plt Count (150-450) k/uL MPV Neutrophils % % Lymphocytes % % Monocytes % % Eosinophils % % Basophils % % Neutrophils # (1.3-7.7) k/uL Lymphocytes # (1.0-4.8) k/uL Monocytes # (0-1.0) k/uL Eosinophils # (0-0.7) k/uL Basophils # (0-0.2) k/uL Sodium (137-145) mmol/L Potassium (3.5-5.1) mmol/L Chloride (98-107) mmol/L Carbon Dioxide (22-30) mmol/L Anion Gap mmol/L BUN (9-20) mg/dL Creatinine (0.66-1.25) mg/dL Est GFR (CKD-EPI)AfAm (>60 ml/min/1.73 sqM) Est GFR (CKD-EPI)NonAf (>60 ml/min/1.73 sqM) Glucose (74-99) mg/dL Lactic Ac Sepsis Rflx Y Plasma Lactic Acid Ramon (0.7-2.0) mmol/L Calcium (8.4-10.2) mg/dL Total Bilirubin (0.2-1.3) mg/dL AST (17-59) U/L ALT (4-49) U/L Alkaline Phosphatase (38-126) U/L Troponin I <0.012 (0.000-0.034) ng/mL Total Protein (6.3-8.2) g/dL Albumin (3.5-5.0) g/dL Amylase (30-110) U/L Lipase (23-300) U/L Disposition Clinical Impression: Abdominal pain, Bowel obstruction Narrative: Suspected colonic mass Disposition: ADMITTED IP TO THIS HOSP Condition: Fair Is patient prescribed a controlled substance at d/c from ED?: No
[2021-11-07] MEDS: SODIUM CHLORIDE 0.9% 1,000 ML IV SCH ×3 (02:12→18:10)
[2021-11-07 05:37] LABS: Amorphous Sediment,Urine Rare /hpf; Appearance,Urine Turbid (Clear); Bacteria,Urine Many /hpf; Bilirubin,Urine Negative (Negative); Blood,Urine Large (Negative); Color,Urine Dark Brown; Glucose,Urine (UA) Negative (Negative); Ketones,Urine Trace (Negative); Leukocyte Esterase,Urine Large (Negative); Mucus,Urine Many /hpf; Nitrite,Urine Negative (Negative); Protein,Urine 2+ (Negative); RBC,Urine 82 /hpf (0-5); WBC,Urine >182 /hpf (0-5)
[2021-11-07 06:15] LABS: Specific Gravity,Urine 1.024 (1.001-1.035)
[2021-11-07] MEDS ORDERED: PANTOPRAZOLE 40 MG/10 ML VIAL IV SCH (09:00)
[2021-11-07] MEDS: METOPROLOL SUCCINATE (ER) 25 MG TAB.ER.24H PO SCH (13:33)
[2021-11-07] MEDS ORDERED: NA PHOS,M-B/NA PHOS,DI-BA 133 ML ENEMA RECTAL ONE (14:47)
--- NOTE | 2021-11-07 14:55 | P.GSCN ---
History of Present Illness Consult date: 11/07/21 History of present illness: This is a 81-year-old male presented a hospital with a chief complaint of left lower quadrant suprapubic pain. He stated that this is been getting worse over last several days. He denies any fevers. He did have some nausea at home. He states that he's had foul-smelling urine. This is been brown and feculent appearing. He is noted to have a UTI on urinalysis. Computed tomography scan did show air in the bladder and concern for colovesicular fistula there is also concern for a mass in the rectosigmoid area. Patient states he has been having bowel movements. He's never had a colonoscopy before in the past. He does have significant cardiac history with history of CABG and pulmonary embolism. He denies any recent weight loss however he does appear cachectic and weighs around 100 pounds. He denies any past abdominal surgical history. Past Medical History Past Medical History: Coronary Artery Disease (CAD), Chest Pain / Angina, Heart Failure, Eye Disorder, Myocardial Infarction ([place]), Pneumonia, Pulmonary Embolus ([place]) Additional Past Medical History / Comment(s): R side pleural effusions with thoracentesis x2/thorascopy with talc pleurodesis at [facility] per pt, EF 20%, recent pneumonia tx with ABX, 1985 pulmonary embolism, occasional back pain. Last Myocardial Infarction Date:: 1989 History of Any Multi-Drug Resistant Organisms: None Reported Past Surgical History: AICD, Cardiac Ablation, Pacemaker, Tonsillectomy Additional Past Surgical History / Comment(s): Thoroscopy with talc pleurodesis R lung, bilateral cataract removals. Past Anesthesia/Blood Transfusion Reactions: No Reported Reaction Additional Past Anesthesia/Blood Transfusion Reaction / Comm: Pt thinks he has received blood in past without reaction. Type of Cardiac Device: Permanent Pacemaker, AICD Device Placement Date:: 2015 Past Psychological History: No Psychological Hx Reported Smoking Status: Former smoker, Smoker, current status unknown Past Alcohol Use History: Occasional Past Drug Use History: None Reported - Past Family History Mother Family Medical History: No Reported History Brother(s) Family Medical History: Cancer Father Additional Family Medical History / Comment(s): Ben had a colostomy. Medications and Allergies Home Medications Medication Instructions Recorded Confirmed Type Folic Acid 0.8 mg PO DAILY 03/01/19 11/07/21 History Furosemide [Lasix] 40 mg PO DAILY 03/01/19 11/07/21 History Metoprolol Succinate (ER) [Toprol 25 mg PO DAILY #30 tab.er.24h 12/04/19 11/07/21 Rx XL] Spironolactone [Aldactone] 25 mg PO DAILY #60 tab 12/04/19 11/07/21 Rx Loperamide [Imodium] 2 mg PO QID PRN 11/07/21 11/07/21 History Warfarin [Coumadin] 1.25 mg PO DAILY 11/07/21 11/07/21 History Allergies Allergy/AdvReac Type Severity Reaction Status Date / Time No Known Allergies Allergy Verified 11/07/21 09:22 Surgical - Exam Osteopathic Statement: *. No significant issues noted on an osteopathic st ructural exam other than those noted in the History and Physical/Consult. Vital Signs Temp Pulse Resp BP Pulse Ox 97.8 F 98 17 92/62 98 11/06/21 22:04 11/06/21 22:04 11/06/21 22:04 11/06/21 22:04 11/06/21 22:04 - General no distress, cachectic, chronically ill - Neck trachea midline - Respiratory normal expansion, normal respiratory effort - Cardiovascular Rhythm: regular - Abdomen Nondistended Abdomen: soft, non tender - Psychiatric oriented to time, oriented to person, oriented to place Results - Labs 11/06/21 22:52 11/06/21 22:52 Abnormal Lab Results - Last 24 Hours (Table) 11/06/21 11/06/21 11/06/21 Range/Units 22:52 22:52 22:52 WBC 14.6 H (3.8-10.6) k/uL Hgb 12.6 L (13.0-17.5) gm/dL Neutrophils # 12.4 H (1.3-7.7) k/uL Lymphocytes # 0.9 L (1.0-4.8) k/uL Monocytes # 1.1 H (0-1.0) k/uL Sodium 131 L (137-145) mmol/L Carbon Dioxide 21 L (22-30) mmol/L BUN 25 H (9-20) mg/dL Creatinine 0.58 L (0.66-1.25) mg/dL Glucose 130 H (74-99) mg/dL Plasma Lactic Acid Ramon 2.5 H* (0.7-2.0) mmol/L Calcium 8.3 L (8.4-10.2) mg/dL Total Bilirubin 1.6 H (0.2-1.3) mg/dL Total Protein 6.2 L (6.3-8.2) g/dL Albumin 2.5 L (3.5-5.0) g/dL Lipase 17 L (23-300) U/L Urine Protein (Negative) Urine Ketones (Negative) Urine Blood (Negative) Ur Leukocyte Esterase (Negative) Urine RBC (0-5) /hpf Urine WBC (0-5) /hpf Urine WBC Clumps (None) /hpf Amorphous Sediment (None) /hpf Urine Bacteria (None) /hpf Urine Mucus (None) /hpf 11/07/21 Range/Units 05:19 WBC (3.8-10.6) k/uL Hgb (13.0-17.5) gm/dL Neutrophils # (1.3-7.7) k/uL Lymphocytes # (1.0-4.8) k/uL Monocytes # (0-1.0) k/uL Sodium (137-145) mmol/L Carbon Dioxide (22-30) mmol/L BUN (9-20) mg/dL Creatinine (0.66-1.25) mg/dL Glucose (74-99) mg/dL Plasma Lactic Acid Ramon (0.7-2.0) mmol/L Calcium (8.4-10.2) mg/dL Total Bilirubin (0.2-1.3) mg/dL Total Protein (6.3-8.2) g/dL Albumin (3.5-5.0) g/dL Lipase (23-300) U/L Urine Protein 2+ H (Negative) Urine Ketones Trace H (Negative) Urine Blood Large H (Negative) Ur Leukocyte Esterase Large H (Negative) Urine RBC 82 H (0-5) /hpf Urine WBC >182 H (0-5) /hpf Urine WBC Clumps Many H (None) /hpf Amorphous Sediment Rare H (None) /hpf Urine Bacteria Many H (None) /hpf Urine Mucus Many H (None) /hpf Microbiology - Last 24 Hours (Table) 11/07/21 05:19 Urine Culture - Preliminary Urine,Voided Diabetes panel 11/06/21 Range/Units 22:52 Sodium 131 L (137-145) mmol/L Potassium 3.8 (3.5-5.1) mmol/L Chloride 101 (98-107) mmol/L Carbon Dioxide 21 L (22-30) mmol/L BUN 25 H (9-20) mg/dL Creatinine 0.58 L (0.66-1.25) mg/dL Glucose 130 H (74-99) mg/dL Calcium 8.3 L (8.4-10.2) mg/dL AST 29 (17-59) U/L ALT 15 (4-49) U/L Alkaline Phosphatase 96 (38-126) U/L Total Protein 6.2 L (6.3-8.2) g/dL Albumin 2.5 L (3.5-5.0) g/dL Calcium panel 11/06/21 Range/Units 22:52 Calcium 8.3 L (8.4-10.2) mg/dL Albumin 2.5 L (3.5-5.0) g/dL Pituitary panel 11/06/21 Range/Units 22:52 Sodium 131 L (137-145) mmol/L Potassium 3.8 (3.5-5.1) mmol/L Chloride 101 (98-107) mmol/L Carbon Dioxide 21 L (22-30) mmol/L BUN 25 H (9-20) mg/dL Creatinine 0.58 L (0.66-1.25) mg/dL Glucose 130 H (74-99) mg/dL Calcium 8.3 L (8.4-10.2) mg/dL Adrenal panel 11/06/21 Range/Units 22:52 Sodium 131 L (137-145) mmol/L Potassium 3.8 (3.5-5.1) mmol/L Chloride 101 (98-107) mmol/L Carbon Dioxide 21 L (22-30) mmol/L BUN 25 H (9-20) mg/dL Creatinine 0.58 L (0.66-1.25) mg/dL Glucose 130 H (74-99) mg/dL Calcium 8.3 L (8.4-10.2) mg/dL Total Bilirubin 1.6 H (0.2-1.3) mg/dL AST 29 (17-59) U/L ALT 15 (4-49) U/L Alkaline Phosphatase 96 (38-126) U/L Total Protein 6.2 L (6.3-8.2) g/dL Albumin 2.5 L (3.5-5.0) g/dL Assessment and Plan Assessment: 81-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 Plan: Patient does not appear to be obstructed disease having bowel movements at this time. He does have a likely colovesicular fistula with UTI. Recommend IV antibiotics and suppositories and enema as he is significantly constipated. I do believe that most of his pain and leukocytosis is related to the UTI and colovesicular fistula. Patient will likely need colonoscopy for further evaluation of the possible mass in his rectosigmoid area. We will follow-up urology recommendations for colovesicular fistula. He may eventually benefit from diverting colostomy however due to the patient's overall health and complex nature of the mass and the fistula, definitive resection would be high risk and likely best done at a tertiary care facility.
[2021-11-07] MEDS: PIPERACILLIN-TAZOBACTAM 3.375 GM in SODIUM CHLORIDE 0.9% 100 ML IVPB SCH ×2 (16:30→23:47)
--- NOTE | 2021-11-07 18:38 | P.GSCN ---
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 He is also been complaining of feculent material in urine, dysuria and abdominal pain. He also complained of 100 lb wt loss. UA on presentation consistent with UTI. He denies any fever/chills. No previous surgeries or any hx of bladder pathology. Denies any hx of previous UTIs Review of Systems - Constitutional Reports weakness, Reports weight loss, Denies chills, Denies fever - EENT Ears, nose, mouth and throat: Denies dysphagia - Cardiovascular Denies chest pain, Denies shortness of breath - Respiratory Denies cough, Denies dyspnea - Gastrointestinal Reports abdominal pain, Reports constipation - Genitourinary Reports dysuria - Integumentary Denies rash, Denies unusual bruising - Neurological Denies headaches, Denies syncope Past Medical History Past Medical History: Coronary Artery Disease (CAD), Chest Pain / Angina, Heart Failure, Eye Disorder, Myocardial Infarction (PR), Pneumonia, Pulmonary Embolus (PE) Additional Past Medical History / Comment(s): R side pleural effusions with thoracentesis x2/thorascopy with talc pleurodesis at [facility] per pt, EF 2 0%, recent pneumonia tx with ABX, 1985 pulmonary embolism, occasional back pain. Last Myocardial Infarction Date:: 1989 History of Any Multi-Drug Resistant Organisms: None Reported Past Surgical History: AICD, Cardiac Ablation, Pacemaker, Tonsillectomy Additional Past Surgical History / Comment(s): Thoroscopy with talc pleurodesis R lung, bilateral cataract removals. Past Anesthesia/Blood Transfusion Reactions: No Reported Reaction Additional Past Anesthesia/Blood Transfusion Reaction / Comm: Pt thinks he has received blood in past without reaction. Type of Cardiac Device: Permanent Pacemaker, AICD Device Placement Date:: 2015 Past Psychological History: No Psychological Hx Reported Smoking Status: Former smoker, Smoker, current status unknown Past Alcohol Use History: Occasional Past Drug Use History: None Reported - Past Family History Mother Family Medical History: No Reported History Brother(s) Family Medical History: Cancer Father Additional Family Medical History / Comment(s): Ben had a colostomy. Medications and Allergies Home Medications Medication Instructions Recorded Confirmed Type Folic Acid 0.8 mg PO DAILY 03/01/19 11/07/21 History Furosemide [Lasix] 40 mg PO DAILY 03/01/19 11/07/21 History Metoprolol Succinate (ER) [Toprol 25 mg PO DAILY #30 tab.er.24h 12/04/19 11/07/21 Rx XL] Spironolactone [Aldactone] 25 mg PO DAILY #60 tab 12/04/19 11/07/21 Rx Loperamide [Imodium] 2 mg PO QID PRN 11/07/21 11/07/21 History Warfarin [Coumadin] 1.25 mg PO DAILY 11/07/21 11/07/21 History Allergies Allergy/AdvReac Type Severity Reaction Status Date / Time No Known Allergies Allergy Verified 11/07/21 09:22 Surgical - Exam Vital Signs Temp Pulse Resp BP Pulse Ox 97.8 F 98 17 92/62 98 11/06/21 22:04 11/06/21 22:04 11/06/21 22:04 11/06/21 22:04 11/06/21 22:04 - General no distress, moderate pain - Eyes normal ocular movement, no loss of movement - ENT normal nares, normal mucosa - Respiratory normal expansion, normal respiratory effort - Abdomen Abdomen: soft, tender (mild tenderness lower quadrant ), distended (mild ) - Psychiatric oriented to time, oriented to person, oriented to place Results - Labs 11/06/21 22:52 11/06/21 22:52 Abnormal Lab Results - Last 24 Hours (Table) 11/06/21 11/06/21 11/06/21 Range/Units 22:52 22:52 22:52 WBC 14.6 H (3.8-10.6) k/uL Hgb 12.6 L (13.0-17.5) gm/dL Neutrophils # 12.4 H (1.3-7.7) k/uL Lymphocytes # 0.9 L (1.0-4.8) k/uL Monocytes # 1.1 H (0-1.0) k/uL Sodium 131 L (137-145) mmol/L Carbon Dioxide 21 L (22-30) mmol/L BUN 25 H (9-20) mg/dL Creatinine 0.58 L (0.66-1.25) mg/dL Glucose 130 H (74-99) mg/dL Plasma Lactic Acid Ramon 2.5 H* (0.7-2.0) mmol/L Calcium 8.3 L (8.4-10.2) mg/dL Total Bilirubin 1.6 H (0.2-1.3) mg/dL Total Protein 6.2 L (6.3-8.2) g/dL Albumin 2.5 L (3.5-5.0) g/dL Lipase 17 L (23-300) U/L Urine Protein (Negative) Urine Ketones (Negative) Urine Blood (Negative) Ur Leukocyte Esterase (Negative) Urine RBC (0-5) /hpf Urine WBC (0-5) /hpf Urine WBC Clumps (None) /hpf Amorphous Sediment (None) /hpf Urine Bacteria (None) /hpf Urine Mucus (None) /hpf 11/07/21 Range/Units 05:19 WBC (3.8-10.6) k/uL Hgb (13.0-17.5) gm/dL Neutrophils # (1.3-7.7) k/uL Lymphocytes # (1.0-4.8) k/uL Monocytes # (0-1.0) k/uL Sodium (137-145) mmol/L Carbon Dioxide (22-30) mmol/L BUN (9-20) mg/dL Creatinine (0.66-1.25) mg/dL Glucose (74-99) mg/dL Plasma Lactic Acid Ramon (0.7-2.0) mmol/L Calcium (8.4-10.2) mg/dL Total Bilirubin (0.2-1.3) mg/dL Total Protein (6.3-8.2) g/dL Albumin (3.5-5.0) g/dL Lipase (23-300) U/L Urine Protein 2+ H (Negative) Urine Ketones Trace H (Negative) Urine Blood Large H (Negative) Ur Leukocyte Esterase Large H (Negative) Urine RBC 82 H (0-5) /hpf Urine WBC >182 H (0-5) /hpf Urine WBC Clumps Many H (None) /hpf Amorphous Sediment Rare H (None) /hpf Urine Bacteria Many H (None) /hpf Urine Mucus Many H (None) /hpf Microbiology - Last 24 Hours (Table) 11/07/21 05:19 Urine Culture - Preliminary Urine,Voided Diabetes panel 11/06/21 Range/Units 22:52 Sodium 131 L (137-145) mmol/L Potassium 3.8 (3.5-5.1) mmol/L Chloride 101 (98-107) mmol/L Carbon Dioxide 21 L (22-30) mmol/L BUN 25 H (9-20) mg/dL Creatinine 0.58 L (0.66-1.25) mg/dL Glucose 130 H (74-99) mg/dL Calcium 8.3 L (8.4-10.2) mg/dL AST 29 (17-59) U/L ALT 15 (4-49) U/L Alkaline Phosphatase 96 (38-126) U/L Total Protein 6.2 L (6.3-8.2) g/dL Albumin 2.5 L (3.5-5.0) g/dL Calcium panel 11/06/21 Range/Units 22:52 Calcium 8.3 L (8.4-10.2) mg/dL Albumin 2.5 L (3.5-5.0) g/dL Pituitary panel 11/06/21 Range/Units 22:52 Sodium 131 L (137-145) mmol/L Potassium 3.8 (3.5-5.1) mmol/L Chloride 101 (98-107) mmol/L Carbon Dioxide 21 L (22-30) mmol/L BUN 25 H (9-20) mg/dL Creatinine 0.58 L (0.66-1.25) mg/dL Glucose 130 H (74-99) mg/dL Calcium 8.3 L (8.4-10.2) mg/dL Adrenal panel 11/06/21 Range/Units 22:52 Sodium 131 L (137-145) mmol/L Potassium 3.8 (3.5-5.1) mmol/L Chloride 101 (98-107) mmol/L Carbon Dioxide 21 L (22-30) mmol/L BUN 25 H (9-20) mg/dL Creatinine 0.58 L (0.66-1.25) mg/dL Glucose 130 H (74-99) mg/dL Calcium 8.3 L (8.4-10.2) mg/dL Total Bilirubin 1.6 H (0.2-1.3) mg/dL AST 29 (17-59) U/L ALT 15 (4-49) U/L Alkaline Phosphatase 96 (38-126) U/L Total Protein 6.2 L (6.3-8.2) g/dL Albumin 2.5 L (3.5-5.0) g/dL Assessment and Plan Assessment: 81 yo male admitted to the hospital for colon mass and Colovesicle fistula, Urology is consulted for colovesicle fistula. He is been evaluated by General surgery for his colon mass and colovesicle fistula. -At this time well obtain a CT cystogram to better define his colovesicle fistula. -From urology standpoint no acute surgical intervention, General surgery is onboard. Agree with general surgery given his comorbidities and complexity of the mass might be better served to be in tertiary center to definitively address his fistula in the future. F/U on urine culture, recommend continuing prophylaxis antibiotics until fistula is addressed.
--- NOTE | 2021-11-07 18:40 | P.HPIM ---
History of Present Illness H&P Date: 11/07/21 Chief Complaint: Abdominal pain This is a very pleasant 81-year-old patient, who follows with Dr. Raymond Gimenez. Chronic stable medical conditions include CAD, CHF, right-sided talc pleurodesis, CHF EF of 25%, osteoarthritis, pacemaker. Patient now presents with intermittent abdominal pain. Has not had a bowel movement for quite a while. Sometimes has small pellet-like BMs sometimes loose stools. Denies any fever and chills. Appetite is just about okay. Has been losing weight. Patient and came to the floor was seen by the nurse to pass some stool through his penis. Review of systems: GEN.: Decrease appetite, weight loss EYES: None HEENT: Hard of hearing NECK: None RESPIRATORY: None CARDIOVASCULAR: None GASTROINTESTINAL: As above GENITOURINARY: None MUSCULOSKELETAL: Joint pains LYMPHATICS: None HEMATOLOGICAL: None PSYCHIATRY: Forgetful NEUROLOGICAL: Uses a walker Past medical history to include: CAD, CHF EF 20%, hard of hearing, will be embolic, right pleural effusion with thoracentesis, and talc pleurodesis, 9096 pulmonary embolism, arthritis, pace maker/AICD Social history: Lives with his . Has a walker. He smoked for many years. Was drinking 6-8 beers a day up to about 2 years ago. Family history: Reviewed, noncontributory to presentation Physical examination: VITAL SIGNS: 97.9, 72, 18, 94/56, 99% room air GENERAL: BMI 15.7, reclining in bed, awake tired. Loss of muscle mass and loss of subcutaneous fat. EYES: Pupils equal. Conjunctiva normal. HEENT: External appearance of nose and ears normal, oral cavity grossly normal hard of hearing. NECK: JVD not raised; masses not palpable. HEART: First and second heart sounds are normal; no edema. LUNGS: Respiratory rate normal; decreased breath sounds. ABDOMEN: Soft, distended by lower abdominal tenderness, liver spleen not palpable, no masses palpable. PSYCH: Patient is able tonsil simple questions. Would affect normall. MUSCULOSKELETAL:No Clubbing/cyanosis;muscles-grossly intact. Evidence of OA. Also muscle mass NEUROLOGICAL: Cranial nerves grossly intact; no facial asymmetry, power and sensation grossly intact. LYMPHATICS: No lymph nodes palpable in the axilla and neck INVESTIGATIONS, reviewed in the clinical context: White count 14.6 hemoglobin 12.6 platelets 353 sodium 131 potassium 3.8 BUN 25 crit 0.58 Lactic acid 2.5 total bilirubin 1.6 albumin 2.5 UA positive for leukoesterase WBC Coronavirus [PCR]: Not detected EKG tracing personally reviewed by me-left bundle-branch block. T-wave changes. Computed tomography scan abdomen and pelvis without contrast: Heart is enlarged. Calcified pleural plaque at the right base. Numerous calcified gallstones. Moderate vascular calcification. Long-standing with no wall thickening of the distal sigmoid colon. Dilated large bowel with retained fecal material even fluid levels. No free air. L1 anterior wedging 25% T11 osteosclerotic focus measuring 1.5 cm. Possible cirrhosis. 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 This patient presents with altered bowel patent. Time. Weight loss. Loss of appetite. Obstruction because of the suspected sigmoid malignancy. Patient is currently put on clear liquids. Consultations made to general surgery and urology. This could be a rather extensive surgery. Patient may have palliative diverting colostomy. Patient is rather frail. This discussion should be had between the surgeon and the patient take depending upon risk- benefit. -Severe protein calorie malnutrition Currently the patient to remain on clear liquid diet. -Chronic medical debility -Chronic gait dysfunction, uses a walker Fall precautions -Chronic congestive heart failure from systolic dysfunction EF less than 20% Follow fluid status. Toprol-XL 25 mg a day -CAD Toprol-XL 25 mg a day -Choledocholithiasis, asymptomatic Follow clinically -Chronic pulmonary embolism Currently on Coumadin. Hold for now -COPD in a previous smoker DuoNeb as needed -Questionable cirrhosis on computed tomography scan Liver ultrasound. Clear liquids. Consultation to urology and surgery. High risk for surgery given his age and frailty and a significant surgery. Empirically and IV Zosyn. Cutback IV fluids to 50 mL an hour given history of CHF. Continue beta anita. Hold Coumadin. Subcu Lovenox. Prognosis guarded. Past Medical History Past Medical History: Coronary Artery Disease (CAD), Chest Pain / Angina, Heart Failure, Eye Disorder, Myocardial Infarction (DE), Pneumonia, Pulmonary Embolus (PE) Additional Past Medical History / Comment(s): R side pleural effusions with thoracentesis x2/thorascopy with talc pleurodesis at [facility] per pt, EF 20%, recent pneumonia tx with ABX, 1985 pulmonary embolism, occasional back pain. Last Myocardial Infarction Date:: 1989 History of Any Multi-Drug Resistant Organisms: None Reported Past Surgical History: AICD, Cardiac Ablation, Pacemaker, Tonsillectomy Additional Past Surgical History / Comment(s): Thoroscopy with talc pleurodesis R lung, bilateral cataract removals. Past Anesthesia/Blood Transfusion Reactions: No Reported Reaction Additional Past Anesthesia/Blood Transfusion Reaction / Comment(s): Pt thinks he has received blood in past without reaction. Type of Cardiac Device: Permanent Pacemaker, AICD Device Placement Date:: 2015 Past Psychological History: No Psychological Hx Reported Smoking Status: Former smoker, Smoker, current status unknown Past Alcohol Use History: Occasional Past Drug Use History: None Reported - Past Family History Mother Family Medical History: No Reported History Brother(s) Family Medical History: Cancer Father Additional Family Medical History / Comment(s): Ben had a colostomy. Medications and Allergies Home Medications Medication Instructions Recorded Confirmed Type Folic Acid 0.8 mg PO DAILY 03/01/19 11/07/21 History Furosemide [Lasix] 40 mg PO DAILY 03/01/19 11/07/21 History Metoprolol Succinate (ER) [Toprol 25 mg PO DAILY #30 tab.er.24h 12/04/19 11/07/21 Rx XL] Spironolactone [Aldactone] 25 mg PO DAILY #60 tab 12/04/19 11/07/21 Rx Loperamide [Imodium] 2 mg PO QID PRN 11/07/21 11/07/21 History Warfarin [Coumadin] 1.25 mg PO DAILY 11/07/21 11/07/21 History Allergies Allergy/AdvReac Type Severity Reaction Status Date / Time No Known Allergies Allergy Verified 11/07/21 09:22 Physical Exam Vitals: Vital Signs Temp Pulse Pulse Resp BP BP Pulse Ox 11/07/21 07:55 97.9 F 72 18 94/56 99 11/07/21 03:25 97.7 F 76 20 107/71 100 11/06/21 22:04 97.8 F 98 17 92/62 98 Intake and Output 11/06/21 11/07/21 11/07/21 22:59 06:59 14:59 Intake Total 0 Output Total 200 Balance -200 Intake: Oral 0 Output: Urine 200 Other: Weight 45.359 kg 45.359 kg Results CBC & Chem 7: 11/06/21 22:52 11/06/21 22:52 Labs: Abnormal Lab Results - Last 24 Hours (Table) 11/06/21 11/06/21 11/06/21 Range/Units 22:52 22:52 22:52 WBC 14.6 H (3.8-10.6) k/uL Hgb 12.6 L (13.0-17.5) gm/dL Neutrophils # 12.4 H (1.3-7.7) k/uL Lymphocytes # 0.9 L (1.0-4.8) k/uL Monocytes # 1.1 H (0-1.0) k/uL Sodium 131 L (137-145) mmol/L Carbon Dioxide 21 L (22-30) mmol/L BUN 25 H (9-20) mg/dL Creatinine 0.58 L (0.66-1.25) mg/dL Glucose 130 H (74-99) mg/dL Plasma Lactic Acid Ramon 2.5 H* (0.7-2.0) mmol/L Calcium 8.3 L (8.4-10.2) mg/dL Total Bilirubin 1.6 H (0.2-1.3) mg/dL Total Protein 6.2 L (6.3-8.2) g/dL Albumin 2.5 L (3.5-5.0) g/dL Lipase 17 L (23-300) U/L Urine Protein (Negative) Urine Ketones (Negative) Urine Blood (Negative) Ur Leukocyte Esterase (Negative) Urine RBC (0-5) /hpf Urine WBC (0-5) /hpf Urine WBC Clumps (None) /hpf Amorphous Sediment (None) /hpf Urine Bacteria (None) /hpf Urine Mucus (None) /hpf 11/07/21 Range/Units 05:19 WBC (3.8-10.6) k/uL Hgb (13.0-17.5) gm/dL Neutrophils # (1.3-7.7) k/uL Lymphocytes # (1.0-4.8) k/uL Monocytes # (0-1.0) k/uL Sodium (137-145) mmol/L Carbon Dioxide (22-30) mmol/L BUN (9-20) mg/dL Creatinine (0.66-1.25) mg/dL Glucose (74-99) mg/dL Plasma Lactic Acid Ramon (0.7-2.0) mmol/L Calcium (8.4-10.2) mg/dL Total Bilirubin (0.2-1.3) mg/dL Total Protein (6.3-8.2) g/dL Albumin (3.5-5.0) g/dL Lipase (23-300) U/L Urine Protein 2+ H (Negative) Urine Ketones Trace H (Negative) Urine Blood Large H (Negative) Ur Leukocyte Esterase Large H (Negative) Urine RBC 82 H (0-5) /hpf Urine WBC >182 H (0-5) /hpf Urine WBC Clumps Many H (None) /hpf Amorphous Sediment Rare H (None) /hpf Urine Bacteria Many H (None) /hpf Urine Mucus Many H (None) /hpf Thrombosis Risk Factor Assmnt - Choose All That Apply Any of the Below Risk Factors Present?: Yes Other Risk Factors: Yes Each Risk Factor Represents 3 Points: Age 75 years or older, History of DVT/PE Other congenital or acquired thrombophilia - If yes, enter type in comment: No Thrombosis Risk Factor Assessment Total Risk Factor Score: 6 Thrombosis Risk Factor Assessment Level: High Risk
[2021-11-07] MEDS: DEXTROSE 5%-0.45% NACL 1,000 ML IV SCH (21:10)
[2021-11-07] MEDS: ENOXAPARIN 40 MG/0.4 ML SYRINGE SQ SCH (21:11)
[2021-11-07] MEDS: bisacodyL 10 MG SUPP RECTAL SCH (21:11)
--- NOTE | 2021-11-08 07:55 | P.PN ---
Subjective Progress Note Date: 11/08/21 Patient is in the hospital with abdominal pain, urinary tract infection. He was identified to have a colon mass and a colovesical fistula. The patient has significant cardiac issues due to previous heart attacks. I discussed with the patient the diagnosis of the colovesical fistula and basic diagnostic approaches to this. The patient is to have colonoscopy as well as a cystogram. Pending the results of this as to further recommendations. Due to significant cardiac issues he may be referred to a tertiary Medical Center depending on general surgical recommendations. Objective - Vital Signs Vital signs: Vital Signs Temp 97.9 F 11/08/21 04:18 Pulse 72 11/08/21 04:27 Resp 16 11/08/21 04:18 BP 91/46 11/08/21 04:27 Pulse Ox 98 11/08/21 04:18 Intake & Output 11/07/21 11/08/21 11/08/21 18:59 06:59 18:59 Intake Total 1300 910 Balance 1300 910 Intake: Intake, IV Titration 1300 700 Amount Dextrose 5%-0.45% NaCl 1, 600 000 ml @ 75 mls/hr IV . [id number] ARIANNA Rx#:[id number] Piperacillin-Tazobactam 3 100 .375 gm In Sodium Chloride 0.9% 100 ml @ 25 mls/hr IVPB Q8HR ARIANNA Rx# :[id number] Sodium Chloride 0.9% 1, 1300 000 ml @ 130 mls/hr IV . [id number] ARIANNA Rx#:[id number] Oral 210 Other: Voiding Method Urinal Urinal - Labs CBC & Chem 7: 11/06/21 22:52 11/06/21 22:52 Labs: Microbiology - Last 24 Hours (Table) 11/07/21 05:19 Urine Culture - Preliminary Urine,Voided
[2021-11-08] MEDS: ENOXAPARIN 40 MG/0.4 ML SYRINGE SQ SCH (08:04)
[2021-11-08] MEDS: PIPERACILLIN-TAZOBACTAM 3.375 GM in SODIUM CHLORIDE 0.9% 100 ML IVPB SCH ×2 (08:04→15:56)
[2021-11-08] MEDS: bisacodyL 10 MG SUPP RECTAL SCH (08:04)
--- NOTE | 2021-11-08 08:09 | US ---
EXAMINATION TYPE: US abdomen limited DATE OF EXAM: 11/08/2021 COMPARISON: CT 2 days ago. CLINICAL HISTORY: Possible cirrhosis. Abnormal labs and pain. EXAM MEASUREMENTS: Liver Length: 10.3 cm Gallbladder Wall: 0.2 cm CBD: 0.6 cm Pancreas: Obscured by bowel gas Liver: Lobulated contour especially left lobe, right lobe small in size, small amount of ascites lat eral/superior to right lobe of liver Gallbladder: Distended with multiple gallstones and sludge, pt unable to roll LLD position Evidence for sonographic Julio's sign: No CBD: wnl Right Kidney: Gassed out Suboptimal evaluation of pancreas on ultrasound due to shadowing from overlying bowel gas. Pancreas s howed mild to moderate generalized atrophy and recent CT. Visualized liver is heterogeneously hyperec hoic with lobulated contour and overall small size. Some adjacent ascites is present along the right superior lateral aspect. No intrahepatic or extrahepatic biliary dilatation. Gallbladder shows mobile shadowing gallstones. Right kidney not well seen towards the end of study, no gross hydronephrosis o n recent CT. IMPRESSION: Confirmation of small cirrhotic liver with trace adjacent ascites.
[2021-11-08] MEDS: DEXTROSE 5%-0.45% NACL 1,000 ML IV SCH ×2 (08:10→20:09)
[2021-11-08] MEDS: METOPROLOL SUCCINATE (ER) 25 MG TAB.ER.24H PO SCH (08:11)
--- NOTE | 2021-11-08 12:35 | XR ---
EXAMINATION TYPE: XR chest 2V DATE OF EXAM: 11/08/2021 COMPARISON: May 09, 2021 HISTORY: History of tobacco use. TECHNIQUE: Frontal and lateral views of the chest are obtained. FINDINGS: Osseous structures are demineralized. There is chronic emphysematous change with small to tiny right pleural effusion redemonstrated. No new focal airspace opacity or pneumothorax seen bilate rally. Persisting cardiomegaly with dual lead pacemaker/defibrillator. IMPRESSION: Chronic changes and cardiomegaly with small to tiny right pleural effusion. No significa nt change from prior. No new focal infiltrate.
--- NOTE | 2021-11-08 12:43 | CT ---
EXAMINATION TYPE: CT Cystogram DATE OF EXAM: 11/08/2021 COMPARISON: 11/06/2021 HISTORY: 81-year-old male colovesicular fistula. Fecaluria. TECHNIQUE: A straight catheter was placed by radiology nursing. The catheter was advanced until the p atient became uncomfortable and resistance was felt. A total of 150 mL contrast (from a mixture of 50 0 cc sterile saline and 50 mL Isovue-300) was instilled into the bladder. Instillation spontaneously ceased and leakage and patient discomfort was noted. Scanning of the pelvis was performed without IV contrast. Both supine and prone scanning was performed. Coronal and sagittal reconstructions performe d. CT DLP: 422 mGycm Automated exposure control for dose reduction was used. FINDINGS: Moderate stool burden. Abnormal mild to moderate circumferential wall thickening of the mid sigmoid c olon for a span of 11.7 cm is nonspecific. Colitis is possible as is infiltrative tumor. There is abnormal masslike thickening spanning 8.7 cm of the distal sigmoid colon, sagittal image 49 and axial image 20. This abnormal thickening narrows the luminal space. There is abnormal soft tissue extension anteriorly to abut the posterior wall of the bladder which sh ows broad-based thickening up to 2.1 cm thick (sagittal image 55) and standing a craniocaudal dimensi on of 7.9 cm (sagittal image 53). The tip of the straight catheter is surrounded by soft tissue which could be some of the prostate gland or infiltrative tumor. Sagittal image 50 demonstrates communication between the anterior wall of the distal sigmoid and the posterior wall of the bladder. Contrast also dissects superiorly and inferiorly along the thickened b ladder wall. The prostate gland itself measures 3.5 cm wide which is not particularly enlarged. Some edematous change throughout the intra-abdominal fat and some presacral edema. No evident pelvic lymphadenopathy. Bones: Mild to moderate degenerative change of the hips. Facet arthropathy lower lumbar spine. IMPRESSION: 1. MARKED NEOPLASTIC THICKENING OF THE DISTAL SIGMOID COLON SPANNING 8.7 CM WITH ASSOCIATED COLOVESIC ULAR FISTULA TO THE POSTERIOR BLADDER WALL. THE POSTERIOR BLADDER WALL HERE IS THICKENED UP TO 2.1 CM THICK FOR A SPAN OF 7.9 CM CRANIOCAUDAL. 2. INSTILLED BLADDER CONTRAST DISSECTS SUPERIORLY AND INFERIORLY WITHIN THE THICKENED POSTERIOR BLADD ER WALL BEFORE ENTERING THE SIGMOID COLON. 3. A STRAIGHT CATHETER WAS PLACED BY RADIOLOGY NURSING AND ADVANCED UNTIL RESISTANCE WAS FELT AND THE PATIENT BECAME UNCOMFORTABLE. ON IMAGING, WE SEE THAT THE TIP IS SURROUNDED BY SOFT TISSUE AND IS NO T LOCATED WITHIN THE OPACIFIED BLADDER LUMEN. THE TIP COULD BE WITHIN THE UPPER PROSTATIC URETHRA OR THERE COULD BE INFILTRATIVE TUMOR EXTENDING TO THE BASE OF THE BLADDER SURROUNDING THE TIP OF THE CAT HETER (SAGITTAL IMAGE 53). 4. ABNORMAL MILD TO MODERATE CIRCUMFERENTIAL WALL THICKENING OF THE MID SIGMOID COLON FOR A SPAN OF N EARLY 12 CM. CONSIDER A NONSPECIFIC COLITIS.
[2021-11-08 13:19] VITALS: BMI 15.6
[2021-11-08] MEDS: DOCUSATE 100 MG CAP PO SCH (20:07)
--- NOTE | 2021-11-08 20:43 | P.PN ---
Progress Note - Text Progress Note Date: 11/08/21 Chief Complaint: Abdominal pain This is a very pleasant 81-year-old patient, who follows with Dr. Raymond Gimenez. Chronic stable medical conditions include CAD, CHF, right-sided talc pleurodesis, CHF EF of 25%, osteoarthritis, pacemaker. Patient now presents with intermittent abdominal pain. Has not had a bowel movement for quite a while. Sometimes has small pellet-like BMs sometimes loose stools. Denies any fever and chills. Appetite is just about okay. Has been losing weight. Patient and came to the floor was seen by the nurse to pass some stool through his penis. November 08: Patient is having significant stool output through his penis. Some abdominal discomfort. Spoke TO Dr. valladares from general surgery. Hold off any surgery for now. Continue IV antibiotics. I concern is about obstruction. Also spoke to Dr. grey from urology. Discussed with patient. Understanding the risk for surgery is okay to proceed to the same. Would like a second opinion so I spoke to Dr. Dale from general surgery. He will see the patient tomorrow. Continue clear liquid diet. This morning CODE STATUS discussed with the patient. Was to be a DO NOT RESUSCITATE Past medical history to include: CAD, CHF EF 20%, hard of hearing, will be embolic, right pleural effusion with thoracentesis, and talc pleurodesis, 9096 pulmonary embolism, arthritis, pacemaker/AICD Social history: Lives with his . Has a walker. He smoked for many years. Was drinking 6-8 beers a day up to about 2 years ago. Family history: Reviewed, noncontributory to presentation Physical examination: VITAL SIGNS: 98, 71, 20, 97/68, 98% room air GENERAL: reclining in bed, awake tired. Loss of muscle mass and loss of subcutaneous fat. EYES: Pupils equal. Conjunctiva normal. HEENT: External appearance of nose and ears normal, oral cavity grossly normal hard of hearing. NECK: JVD not raised; masses not palpable. HEART: First and second heart sounds are normal; no edema. LUNGS: Respiratory rate normal; decreased breath sounds. ABDOMEN: Soft, distended by lower abdominal tenderness, liver spleen not palpable, no masses palpable. PSYCH: Patient able to carry on with simple conversation. Wound affect normal. MUSCULOSKELETAL:No Clubbing/cyanosis;muscles-grossly intact. Evidence of OA. Also muscle mass NEUROLOGICAL: Cranial nerves grossly intact; no facial asymmetry, power and sensation grossly intact. INVESTIGATIONS, reviewed in the clinical context: White count 14.6 hemoglobin 12.6 platelets 353 sodium 131 potassium 3.8 BUN 25 crit 0.58 Lactic acid 2.5 total bilirubin 1.6 albumin 2.5 UA positive for leukoesterase WBC Coronavirus [PCR]: Not detected EKG tracing personally reviewed by me-left bundle-branch block. T-wave changes. Computed tomography scan abdomen and pelvis without contrast: Heart is enlarged. Calcified pleural plaque at the right base. Numerous calcified gallstones. Moderate vascular calcification. Long-standing with no wall thickening of the distal sigmoid colon. Dilated large bowel with retained fecal material even fluid levels. No free air. L1 anterior wedging 25% T11 osteosclerotic focus measuring 1.5 cm. Possible cirrhosis. 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 Time. Weight loss. Loss of appetite. Obstruction because of the suspected sigmoid malignancy. clear liquids. Spoke to Dr. valladares and Dr. grey today. Consulting Dr. Cavanaugh for second opinion. Discussed with patient. He is inclined to proceed with surgery understanding that he is a high risk. -Severe protein calorie malnutrition: Slow to respond Currently the patient to remain on clear liquid diet. -Chronic medical debility -Chronic gait dysfunction, uses a walker Fall precautions -Chronic congestive heart failure from systolic dysfunction EF less than 20% Follow fluid status. Toprol-XL 25 mg a day -Moderate mitral regurgitation, moderate aortic valve sclerosis: Follow clinically -CAD Toprol-XL 25 mg a day -Choledocholithiasis, asymptomatic Follow clinically -Chronic pulmonary embolism Currently on Coumadin. Hold for now -COPD in a previous smoker DuoNeb as needed -Questionable cirrhosis on computed tomography scan Liver ultrasound. Clear liquids. Consult Dr. Cavanaugh for second opinion. Consult cardiology because of cardiac history. Advanced care planning: Spoke at length with patient about his age, frailty, multiple comorbidities. He does want to proceed with surgery at that is a option. Understanding the high risk. He does want to be DO NOT RESUSCITATE does not want a ventilator or to be resuscitated otherwise. Questions were answered. Time spent for this was about 20 minutes
[2021-11-09] MEDS: PIPERACILLIN-TAZOBACTAM 3.375 GM in SODIUM CHLORIDE 0.9% 100 ML IVPB SCH ×4 (00:26→23:41)
[2021-11-09] MEDS: ACETAMINOPHEN TAB 325 MG TAB PO PRN (02:04)
[2021-11-09 07:21] LABS: Basophils % (A) 0 %; Eosinophils % (A) 0 %; HCT 31.6 % (39.0-53.0); HGB 10.4 gm/dL (13.0-17.5); Lymphocytes # (A) 0.8 k/uL (1.0-4.8); Lymphocytes % (A) 9 %; MCH 29.8 pg (25.0-35.0); MCHC 32.9 g/dL (31.0-37.0); MCV 90.8 fL (80.0-100.0); Mean Platelet Volume 7.7; Monocytes # (A) 0.8 k/uL (0-1.0); Monocytes % (A) 8 %; Neutrophils # (A) 7.2 k/uL (1.3-7.7); Neutrophils % (A) 80 %; Platelet Count 268 k/uL (150-450); RBC 3.48 m/uL (4.30-5.90); RDW 14.1 % (11.5-15.5)
[2021-11-09 07:56] LABS: ALT 12 U/L (4-49); AST 23 U/L (17-59); African American GFR (CKD) >90 (>60 ml/min/1.73 sqM); Albumin 1.8 g/dL (3.5-5.0); Albumin/Globulin Ratio 0.6; Alkaline Phosphatase 58 U/L (38-126); Anion Gap 4 mmol/L; Blood Urea Nitrogen 11 mg/dL (9-20); Calcium 7.8 mg/dL (8.4-10.2); Carbon Dioxide 19 mmol/L (22-30); Chloride 108 mmol/L (98-107); Globulin 3.1 g/dL; Glucose 107 mg/dL (74-99); Non-African American GFR(CKD) >90 (>60 ml/min/1.73 sqM); Potassium 3.4 mmol/L (3.5-5.1); Sodium 131 mmol/L (137-145); Total Bilirubin 1.2 mg/dL (0.2-1.3); Total Protein 4.9 g/dL (6.3-8.2)
[2021-11-09] MEDS: bisacodyL 10 MG SUPP RECTAL SCH (08:42)
[2021-11-09] MEDS: DOCUSATE 100 MG CAP PO SCH ×2 (08:43→21:33)
[2021-11-09] MEDS: ENOXAPARIN 40 MG/0.4 ML SYRINGE SQ SCH (08:44)
--- NOTE | 2021-11-09 08:56 | P.PN ---
Subjective Progress Note Date: 11/08/21 Patient denies pain today, he did have several bowel movements and had a water BM after enema yesterday. No NV. He is still passing feculent urine. Objective - Vital Signs Vital signs: Vital Signs Temp 97.7 F 11/09/21 07:55 Pulse 72 11/09/21 07:55 Resp 16 11/09/21 07:55 BP 90/54 11/09/21 07:55 Pulse Ox 98 11/09/21 07:55 Intake & Output 11/08/21 11/09/21 11/09/21 18:59 06:59 18:59 Intake Total 1590 Output Total 100 650 Balance -100 940 Weight 45.359 kg Intake: Intake, IV Titration 1000 Amount Dextrose 5%-0.45% NaCl 1, 900 000 ml @ 75 mls/hr IV . [id number] [facility] Rx#:[id number] Piperacillin-Tazobactam 3 100 .375 gm In Sodium Chloride 0.9% 100 ml @ 25 mls/hr IVPB Q8HR [facility]AN[facility] Rx# :[id number] Oral 590 Output: Urine 100 650 Other: Voiding Method Urinal Urinal # Voids 3 1 # Bowel Movements 1 - Constitutional General appearance: Present: cooperative - Cardiovascular Rhythm: regular - Gastrointestinal Gastrointestinal Comment(s): S/NT - Labs CBC & Chem 7: 11/09/21 06:54 11/09/21 06:54 Labs: Abnormal Lab Results - Last 24 Hours (Table) 11/09/21 11/09/21 Range/Units 06:54 06:54 RBC 3.48 L (4.30-5.90) m/uL Hgb 10.4 L (13.0-17.5) gm/dL Hct 31.6 L (39.0-53.0) % Lymphocytes # 0.8 L (1.0-4.8) k/uL Sodium 131 L (137-145) mmol/L Potassium 3.4 L (3.5-5.1) mmol/L Chloride 108 H (98-107) mmol/L Carbon Dioxide 19 L (22-30) mmol/L Creatinine 0.61 L (0.66-1.25) mg/dL Glucose 107 H (74-99) mg/dL Calcium 7.8 L (8.4-10.2) mg/dL Total Protein 4.9 L (6.3-8.2) g/dL Albumin 1.8 L (3.5-5.0) g/dL Microbiology - Last 24 Hours (Table) 11/07/21 05:19 Urine Culture - Preliminary Urine,Voided Gram Neg Bacilli Assessment and Plan Assessment: 81-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 Plan: After lengthy discussion with patient and urology and primary team I recommend that if the patient is not showing obstructive signs and he is able to continue to pass BM then he can be worked up as an outpatient and likely referred to colorectal at a tertiary care facility for the definitive resection if he chooses to undergo that surgery. Yudy was in agreement with this plan as well. If however he doe4s appear to have obstruction or there is concern for obstruction a diverting colostomy would be recommended.
[2021-11-09] MEDS: METOPROLOL SUCCINATE (ER) 25 MG TAB.ER.24H PO SCH (09:49)
[2021-11-09] MEDS: DEXTROSE 5%-0.45% NACL 1,000 ML IV SCH ×2 (11:55→23:40)
--- NOTE | 2021-11-09 12:10 | P.GSCN ---
<Joan Atwood - Last Filed: 11/09/21 11:51> History of Present Illness Consult date: 11/09/21 Reason for Consult: Colovesicular fistula, second opinion Requesting physician: Darian Bobby History of present illness: CHIEF COMPLAINT: Abdominal pain HISTORY OF PRESENT ILLNESS: This is an 81-year-old male with multiple comorbidities including coronary artery disease, heart failure, has a permanent pacemaker, AICD, history of MT and pulmonary embolism normally on Coumadin. He presented to the emergency department on 11/07/2021 with complaints of lower abdominal pain associated with nausea and vomiting. The patient states he abdominal pain began about a week ago and progressively was getting worse. At home he states that he had felt nauseated and intact himself to vomit which the first 2 times was just phlegm however he then started vomiting 2-3 times bowel tasting brown which he described as stool. He was also noted to be urinating stool as well. He had a CT of the abdomen and pelvis without contrast was concerning for colovesicular fistula and concern for mass in the rectosigmoid area. He also had a CT cystogram showing neoplastic thickening of the distal sigmoid: With associated colovesicular fistula to the posterior bladder wall. Dr. Watts from general surgery was consulted and recommended possible diverting colostomy, but did recommend if patient were to undergo resection he would be high risk and likely best done at a tertiary care facility. Patient was also seen by urology who is in agreement that due to patient's multiple comorbidities and cardiac history should be referred to tertiary Medical Center for surgical recommendations. Patient is currently stating his abdominal pain has improved. He denies any nausea or vomiting. He states he did lose 5-6 pounds within the last 4-6 weeks. He states his appetite is poor most times, however at times he does well with eating. PAST MEDICAL HISTORY: Coronary artery disease status post pacemaker, AICD, CABG, heart failure, MT, pneumonia, pulmonary embolism on Coumadin PAST SURGICAL HISTORY: AICD, cardiac ablation, pacemaker, tonsillectomy MEDICATIONS: See list. ALLERGIES: See list. SOCIAL HISTORY: No illicit drug use. REVIEW OF SYSTEMS: CONSTITUTIONAL: Denies fever or chills. HEENT: Denies blurred vision, vision changes, or eye pain. Denies hemoptysis CARDIOVASCULAR: Denies chest pain or pressure. RESPIRATORY: No shortness of breath. GASTROINTESTINAL: See HPI for pertinent findings HEMATOLOGIC: Denies bleeding disorders. GENITOURINARY: Urine mixed with stool. Pelvic pain. SKIN: Denies pruitis. Denies rash. PHYSICAL EXAM: VITAL SIGNS: Reviewed GENERAL: Well-developed in no acute distress. HEENT: No sclera icterus. Extraocular movements grossly intact. Moist buccal mucosa. Head is atraumatic, normocephalic. No nasal drainage. ABDOMEN: Soft. Thin. Nondistended. Tenderness with palpation to left lower quadrant. NEUROLOGIC: Alert and oriented. Cranial nerves II through XII grossly intact. LABORATORY DATA: WBC 9.0 hemoglobin 10.4 platelet count 268,000 Sodium 131, potassium 3.4 BUN 11 creatinine 0.6 Total bilirubin 1.2 AST 23 ALT 12 alk phos 58, total protein 4.9 albumin 1.8 IMAGING: CT abdomen and pelvis: shows 8 cm segment of distal sigmoid colon with significant wall thickening. There is evidence for mechanical large bowel obstruction. This is suspicious for tumor, follow-up recommended. Mild L1 compression fracture. Osteoblastic change at the T11 vertebral body that's n onspecific. There are changes in the liver suggestive of cirrhosis. Cholelithiasis. Calcifying pleural plaque at the right diaphragm. CT cystogram: Marked neoplastic thickening of the distal sigmoid colon spanning 8.7 cm with associated colovesicular fistula to the posterior bladder wall. The posterior bladder wall here second up to 2.1 cm first span of 7.9 cm craniocaudal. Instilled bladder contrast dissects superiorly and inferiorly within this thickened posterior bladder wall before entering the sigmoid colon. A straight catheter placed by radiology nurse with tip surrounded by soft tissue not located within the opacified bladder lumen. Could be within the upper prostatic urethra or there could be infiltrative tumor extending to the base of the bladder surrounding the tip of catheter. Abnormal mild to moderate circumferential wall thickening of the mid sigmoid colon for a span of nearly 12 cm. Consider nonspecific colitis. Abdominal ultrasound: Confirmation of small cirrhotic liver with trace adjacent ascites ASSESSMENT: 1. Abdominal pain 2. 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 History of coronary artery disease status post CABG, AICD, pacemaker 4. History of pulmonary embolism on Coumadin, currently on hold PLAN: 1. May continue clear liquid diet 2. Imaging reviewed 3. Continue IV antibiotics 4. Further recommendations forthcoming per surgeon The impression and plan of care has been dictated as directed. Dr. Dale I performed a history and examination of this patient, discussed the same with the dictator. I agree with the dictator's note ,documented as a scribe. Any additional findings or plans will be noted. Past Medical History Past Medical History: Coronary Artery Disease (CAD), Chest Pain / Angina, Heart Failure, Eye Disorder, Myocardial Infarction (MT), Pneumonia, Pulmonary Embolus (PE) Additional Past Medical History / Comment(s): R side pleural effusions with thoracentesis x2/thorascopy with talc pleurodesis at [facility] per pt, EF 20%, recent pneumonia tx with ABX, 1985 pulmonary embolism, occasional back pain. Last Myocardial Infarction Date:: 1989 History of Any Multi-Drug Resistant Organisms: None Reported Past Surgical History: AICD, Cardiac Ablation, Pacemaker, Tonsillectomy Additional Past Surgical History / Comment(s): Thoroscopy with talc pleurodesis R lung, bilateral cataract removals. Past Anesthesia/Blood Transfusion Reactions: No Reported Reaction Additional Past Anesthesia/Blood Transfusion Reaction / Comm: Pt thinks he has received blood in past without reaction. Type of Cardiac Device: Permanent Pacemaker, AICD Device Placement Date:: 2015 Past Psychological History: No Psychological Hx Reported Smoking Status: Former smoker, Smoker, current status unknown Past Alcohol Use History: Occasional Past Drug Use History: None Reported - Past Family History Mother Family Medical History: No Reported History Brother(s) Family Medical History: Cancer Father Additional Family Medical History / Comment(s): Ben had a colostomy. Medications and Allergies Home Medications Medication Instructions Recorded Confirmed Type Folic Acid 0.8 mg PO DAILY 03/01/19 11/07/21 History Furosemide [Lasix] 40 mg PO DAILY 03/01/19 11/07/21 History Metoprolol Succinate (ER) [Toprol 25 mg PO DAILY #30 tab.er.24h 12/04/19 11/07/21 Rx XL] Spironolactone [Aldactone] 25 mg PO DAILY #60 tab 12/04/19 11/07/21 Rx Loperamide [Imodium] 2 mg PO QID PRN 11/07/21 11/07/21 History Warfarin [Coumadin] 1.25 mg PO DAILY 11/07/21 11/07/21 History Allergies Allergy/AdvReac Type Severity Reaction Status Date / Time No Known Allergies Allergy Verified 11/07/21 09:22 Surgical - Exam Vital Signs Temp Pulse Resp BP Pulse Ox 97.8 F 98 17 92/62 98 11/06/21 22:04 11/06/21 22:04 11/06/21 22:04 11/06/21 22:04 11/06/21 22:04 Results - Labs 11/09/21 06:54 11/09/21 06:54 Abnormal Lab Results - Last 24 Hours (Table) 11/09/21 11/09/21 Range/Units 06:54 06:54 RBC 3.48 L (4.30-5.90) m/uL Hgb 10.4 L (13.0-17.5) gm/dL Hct 31.6 L (39.0-53.0) % Lymphocytes # 0.8 L (1.0-4.8) k/uL Sodium 131 L (137-145) mmol/L Potassium 3.4 L (3.5-5.1) mmol/L Chloride 108 H (98-107) mmol/L Carbon Dioxide 19 L (22-30) mmol/L Creatinine 0.61 L (0.66-1.25) mg/dL Glucose 107 H (74-99) mg/dL Calcium 7.8 L (8.4-10.2) mg/dL Total Protein 4.9 L (6.3-8.2) g/dL Albumin 1.8 L (3.5-5.0) g/dL Microbiology - Last 24 Hours (Table) 11/07/21 05:19 Urine Culture - Preliminary Urine,Voided Gram Neg Bacilli Diabetes panel 11/09/21 Range/Units 06:54 Sodium 131 L (137-145) mmol/L Potassium 3.4 L (3.5-5.1) mmol/L Chloride 108 H (98-107) mmol/L Carbon Dioxide 19 L (22-30) mmol/L BUN 11 (9-20) mg/dL Creatinine 0.61 L (0.66-1.25) mg/dL Glucose 107 H (74-99) mg/dL Calcium 7.8 L (8.4-10.2) mg/dL AST 23 (17-59) U/L ALT 12 (4-49) U/L Alkaline Phosphatase 58 (38-126) U/L Total Protein 4.9 L (6.3-8.2) g/dL Albumin 1.8 L (3.5-5.0) g/dL Calcium panel 11/09/21 Range/Units 06:54 Calcium 7.8 L (8.4-10.2) mg/dL Albumin 1.8 L (3.5-5.0) g/dL Pituitary panel 11/09/21 Range/Units 06:54 Sodium 131 L (137-145) mmol/L Potassium 3.4 L (3.5-5.1) mmol/L Chloride 108 H (98-107) mmol/L Carbon Dioxide 19 L (22-30) mmol/L BUN 11 (9-20) mg/dL Creatinine 0.61 L (0.66-1.25) mg/dL Glucose 107 H (74-99) mg/dL Calcium 7.8 L (8.4-10.2) mg/dL Adrenal panel 11/09/21 Range/Units 06:54 Sodium 131 L (137-145) mmol/L Potassium 3.4 L (3.5-5.1) mmol/L Chloride 108 H (98-107) mmol/L Carbon Dioxide 19 L (22-30) mmol/L BUN 11 (9-20) mg/dL Creatinine 0.61 L (0.66-1.25) mg/dL Glucose 107 H (74-99) mg/dL Calcium 7.8 L (8.4-10.2) mg/dL Total Bilirubin 1.2 (0.2-1.3) mg/dL AST 23 (17-59) U/L ALT 12 (4-49) U/L Alkaline Phosphatase 58 (38-126) U/L Total Protein 4.9 L (6.3-8.2) g/dL Albumin 1.8 L (3.5-5.0) g/dL <Pritesh Dale - Last Filed: 11/09/21 17:13> History of Present Illness History of present illness: I have personally seen and examined the patient, reviewed the TERRESTRIAL ECOLOGIST /PAs history, exam and MDM and agree with the assessment and plan as written. Based on total visit time, I have performed more than 50% of the visit. As above. Case discussed with Dr. Bobby and also with Dr. Watts. Patient with a large mass involving the sigmoid colon and appears to involve the bladder as well. Highly suspicious for advanced neoplasm. Patient still having symptoms most consistent with partial colonic obstruction and fistula obviously still present. Patient likely would require neoadjuvant chemotherapy to try to shrink this tumor followed by definitive resection at a tertiary care center with both colorectal surgery and urology performing the procedure. Realistically the patient's condition may not allow above plan to take place. Diverting transverse loop colostomy for both therapeutic and possibly palliative reasons appears to be the best option currently. Patient is agreeable with that plan. Await cardiac evaluation to determine level of risk. Again case discussed with Dr. Bobby and Dr. Watts. Dr. Watts we will discuss this further with the patient and his daughter and schedule surgery if agreeable and cardiac clearance obtained. Surgical - Exam Vital Signs Temp Pulse Resp BP Pulse Ox 97.8 F 98 17 92/62 98 11/06/21 22:04 11/06/21 22:04 11/06/21 22:04 11/06/21 22:04 11/06/21 22:04 Results - Labs 11/09/21 06:54 11/09/21 06:54 Abnormal Lab Results - Last 24 Hours (Table) 11/09/21 11/09/21 Range/Units 06:54 06:54 RBC 3.48 L (4.30-5.90) m/uL Hgb 10.4 L (13.0-17.5) gm/dL Hct 31.6 L (39.0-53.0) % Lymphocytes # 0.8 L (1.0-4.8) k/uL Sodium 131 L (137-145) mmol/L Potassium 3.4 L (3.5-5.1) mmol/L Chloride 108 H (98-107) mmol/L Carbon Dioxide 19 L (22-30) mmol/L Creatinine 0.61 L (0.66-1.25) mg/dL Glucose 107 H (74-99) mg/dL Calcium 7.8 L (8.4-10.2) mg/dL Total Protein 4.9 L (6.3-8.2) g/dL Albumin 1.8 L (3.5-5.0) g/dL Microbiology - Last 24 Hours (Table) 11/07/21 05:19 Urine Culture - Final Urine,Voided Escherichia coli Diabetes panel 11/09/21 Range/Units 06:54 Sodium 131 L (137-145) mmol/L Potassium 3.4 L (3.5-5.1) mmol/L Chloride 108 H (98-107) mmol/L Carbon Dioxide 19 L (22-30) mmol/L BUN 11 (9-20) mg/dL Creatinine 0.61 L (0.66-1.25) mg/dL Glucose 107 H (74-99) mg/dL Calcium 7.8 L (8.4-10.2) mg/dL AST 23 (17-59) U/L ALT 12 (4-49) U/L Alkaline Phosphatase 58 (38-126) U/L Total Protein 4.9 L (6.3-8.2) g/dL Albumin 1.8 L (3.5-5.0) g/dL Calcium panel 11/09/21 Range/Units 06:54 Calcium 7.8 L (8.4-10.2) mg/dL Albumin 1.8 L (3.5-5.0) g/dL Pituitary panel 11/09/21 Range/Units 06:54 Sodium 131 L (137-145) mmol/L Potassium 3.4 L (3.5-5.1) mmol/L Chloride 108 H (98-107) mmol/L Carbon Dioxide 19 L (22-30) mmol/L BUN 11 (9-20) mg/dL Creatinine 0.61 L (0.66-1.25) mg/dL Glucose 107 H (74-99) mg/dL Calcium 7.8 L (8.4-10.2) mg/dL Adrenal panel 11/09/21 Range/Units 06:54 Sodium 131 L (137-145) mmol/L Potassium 3.4 L (3.5-5.1) mmol/L Chloride 108 H (98-107) mmol/L Carbon Dioxide 19 L (22-30) mmol/L BUN 11 (9-20) mg/dL Creatinine 0.61 L (0.66-1.25) mg/dL Glucose 107 H (74-99) mg/dL Calcium 7.8 L (8.4-10.2) mg/dL Total Bilirubin 1.2 (0.2-1.3) mg/dL AST 23 (17-59) U/L ALT 12 (4-49) U/L Alkaline Phosphatase 58 (38-126) U/L Total Protein 4.9 L (6.3-8.2) g/dL Albumin 1.8 L (3.5-5.0) g/dL
[2021-11-10] MEDS: PIPERACILLIN-TAZOBACTAM 3.375 GM in SODIUM CHLORIDE 0.9% 100 ML IVPB SCH ×2 (07:39→17:12)
[2021-11-10] MEDS: DOCUSATE 100 MG CAP PO SCH ×2 (07:41→20:59)
[2021-11-10] MEDS: bisacodyL 10 MG SUPP RECTAL SCH ×2 (07:41→09:27)
[2021-11-10] MEDS: ENOXAPARIN 40 MG/0.4 ML SYRINGE SQ SCH (07:42)
[2021-11-10] MEDS: METOPROLOL SUCCINATE (ER) 25 MG TAB.ER.24H PO SCH (09:25)
--- NOTE | 2021-11-10 12:04 | P.CRDCN ---
History of Present Illness History of present illness: HISTORY OF PRESENTING ILLNESS This is a pleasant 81-year-old male past medical history significant for ischemic cardiomyopathy status post dual chamber AICD implantation, congestive heart failure, coronary artery disease unknown details, Pulmonary embolism on Coumadin. He now follows with Dr. Birmingham's partner, since his budder retired. We have been asked to see in consultation for cardiac clearance. Patient presents to the emergency department on 11/07/21 with complaints of abd ominal pain, nausea and vomiting. CT abdomen and pelvis revealed colovesicular fistula and concern for mass in the rectosigmoid area, mechanical large bowel obstruction. 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 Urology and Surgery have evaluated the patient. Patient possibly undergoing diverting colostomy. Patient denies any shortness of breath, chest pain, lightheadedness, dizziness, syncope or near syncope. No symptoms of orthopnea or PND. No lower extremity edema or JVD. DIAGNOSTICS EKG reveals Sinus rhythm, HR 84, Left bundle branch block, poor R wave progression, occasional PVCs Chest xray Cardiomegaly. Small to tiny right pleural effusion. no new change or infiltrate seen Laboratory reviewed, WBC 9.0, hemoglobin 10.4, platelets 268, sodium 131, potassium 3.4, BUN 8, serum creatinine 0.6 Current cardiac medications include Lasix 40 mg daily, metoprolol succinate 25 mg daily, spironolactone 25 mg daily, Coumadin 1.25 mg daily REVIEW OF SYSTEMS At the time of my exam: CONSTITUTIONAL: Denies fever or chills. CARDIOVASCULAR: Denies chest pain, shortness of breath, orthopnea, PND or palpitations. RESPIRATORY: Denies cough. GASTROINTESTINAL: Denies abdominal pain, diarrhea, constipation, nausea or vomiting. MUSCULOSKELETAL: Denies myalgias. NEUROLOGIC: Denies numbness, tingling, headacbe or weakness. ENDOCRINE: Denies fatigue, weight change, polydipsia or polyurina. GENITOURINARY: Denies burning, hematuria or urgency with micturation. HEMATOLOGIC: Denies history of anemia or bleeding. PHYSICAL EXAMINATION Blood pressure 90/57 HR 82, afebrile SpO2 >92% on room air CONSTITUTIONAL: No apparent distress. Frail HEENT: Head is normocephalic. Pupils are equal, round. Sclerae anicteric. Mucous membranes of the mouth are moist. No JVD. No carotid bruit. CHEST EXAMINATION: Lungs are clear to auscultation. No chest wall tenderness is noted on palpation or with deep breathing. HEART EXAMINATION: Regular rate and rhythm. S1, S2 heard. No murmurs, gallops or rub. ABDOMEN: Soft, nontender. Positive bowel sounds. EXTREMITIES: 2+ peripheral pulses, no lower extremity edema and no calf tenderness. NEUROLOGIC EXAMINATION: Patient is awake, alert and oriented x3. ASSESSMENT Abdominal pain Colovesicular fistula Ischemic cardiomyopathy status post dual chamber AICD implantation Congestive heart failure Coronary artery disease unknown details Pulmonary embolism on Coumadin PLAN Patient is at high risk for surgery. He has the following risk factors history of congestive heart failure, history of ischemic heart disease, cardiomyopathy. Patient does not have any acute cardiac conditions at this time. He is not in acute heart failure, no chest pain or shortness of breath and no evidence of new acute ischemia. Patient is hemodynamically stable. Patient is at high risk but there is no absolute contraindications to undergo surgery at this time. Recommend cautious fluid administration and optimal BP control. Nurse Practitioner note has been reviewed, I agree with a documented findings and plan of care. Patient was seen and examined. Past Medical History Past Medical History: Coronary Artery Disease (CAD), Chest Pain / Angina, Heart Failure, Eye Disorder, Myocardial Infarction ([place]), Pneumonia, Pulmonary Embolus ([place]) Additional Past Medical History / Comment(s): R side pleural effusions with thoracentesis x2/thorascopy with talc pleurodesis at [facility] per pt, EF 20%, recent pneumonia tx with ABX, 1985 pulmonary embolism, occasional back pain. Last Myocardial Infarction Date:: 1989 History of Any Multi-Drug Resistant Organisms: None Reported Past Surgical History: AICD, Cardiac Ablation, Pacemaker, Tonsillectomy Additional Past Surgical History / Comment(s): Thoroscopy with talc pleurodesis R lung, bilateral cataract removals. Past Anesthesia/Blood Transfusion Reactions: No Reported Reaction Additional Past Anesthesia/Blood Transfusion Reaction / Comment(s): Pt thinks he has received blood in past without reaction. Type of Cardiac Device: Permanent Pacemaker, AICD Device Placement Date:: 2015 Past Psychological History: No Psychological Hx Reported Smoking Status: Former smoker, Smoker, current status unknown Past Alcohol Use History: Occasional Past Drug Use History: None Reported - Past Family History Mother Family Medical History: No Reported History Brother(s) Family Medical History: Cancer Father Additional Family Medical History / Comment(s): Ben had a colostomy. Medications and Allergies Home Medications Medication Instructions Recorded Confirmed Type Folic Acid 0.8 mg PO DAILY 03/01/19 11/07/21 History Furosemide [Lasix] 40 mg PO DAILY 03/01/19 11/07/21 History Metoprolol Succinate (ER) [Toprol 25 mg PO DAILY #30 tab.er.24h 12/04/19 11/07/21 Rx XL] Spironolactone [Aldactone] 25 mg PO DAILY #60 tab 12/04/19 11/07/21 Rx Loperamide [Imodium] 2 mg PO QID PRN 11/07/21 11/07/21 History Warfarin [Coumadin] 1.25 mg PO DAILY 11/07/21 11/07/21 History Allergies Allergy/AdvReac Type Severity Reaction Status Date / Time No Known Allergies Allergy Verified 11/07/21 09:22 Physical Exam Vitals: Vital Signs Temp Pulse Resp BP Pulse Ox 11/10/21 07:20 98.3 F 72 14 92/58 96 11/10/21 04:17 98.2 F 75 16 91/51 97 11/09/21 20:20 74 16 11/09/21 19:56 97.7 F 74 16 95/57 99 11/09/21 12:14 98.5 F 71 12 87/53 Intake and Output 11/09/21 11/10/21 11/10/21 22:59 06:59 14:59 Intake Total 1000 Output Total 1 150 Balance -1 850 Intake: Intake, IV Titration 1000 Amount Dextrose 5%-0.45% NaCl 1, 900 000 ml @ 75 mls/hr IV . [id number] [facility] Rx#:[id number] Piperacillin-Tazobactam 3 100 .375 gm In Sodium Chloride 0.9% 100 ml @ 25 mls/hr IVPB Q8HR [facility] Rx# :[id number] Output: Urine 150 Stool 1 Other: Voiding Method Urinal External Catheter Diaper External Catheter # Voids 2 # Bowel Movements 1 Results 11/09/21 06:54 11/09/21 06:54 Current Medications Generic Name Dose Route Start Last Admin Trade Name Freq PRN Reason Stop Dose Admin Acetaminophen 650 mg 11/07/21 00:54 11/09/21 02:04 Acetaminophen Tab 325 Mg Tab PO 650 mg Q6HR PRN Administration Mild Pain or Fever > 100.5 Bisacodyl 10 mg 11/07/21 15:00 11/10/21 09:27 Bisacodyl 10 Mg Supp RECTAL Not Given DAILY [facility] Docusate Sodium 100 mg 11/08/21 21:00 11/10/21 07:41 Docusate 100 Mg Cap PO 100 mg BID ARIANNA Administration Enoxaparin Sodium 40 mg 11/07/21 18:45 11/10/21 07:42 Enoxaparin 40 Mg/0.4 Ml Syringe SQ 40 mg DAILY ARIANNA Administration Piperacillin Sod/Tazobactam 100 mls @ 25 mls/hr 11/07/21 16:00 11/10/21 07:39 Sod 3.375 gm/ Sodium Chloride IVPB 25 mls/hr Q8HR ARIANNA Administration Dextrose/Sodium Chloride 1,000 mls @ 75 mls/hr 11/07/21 18:45 11/09/21 23:40 Dextrose 5%-1/2ns Iv Soln IV 75 mls/hr .[id number] ARIANNA Administration Metoprolol Succinate 25 mg 11/07/21 11:15 11/10/21 09:25 Metoprolol Succinate (Er) 25 Mg Tab.Er.24h PO Not Given DAILY [facility] Morphine Sulfate 4 mg 11/07/21 00:54 Morphine Sulfate 4 Mg/Ml Syringe IV Q4HR PRN Severe Pain Naloxone HCl 0.2 mg 11/07/21 00:54 Naloxone 0.4 Mg/Ml 1 Ml Vial IV Q2M PRN Opioid Reversal Ondansetron HCl 4 mg 11/07/21 00:54 11/10/21 08:20 Ondansetron 4 Mg/2 Ml Vial IVP 4 mg Q8HR PRN Administration Nausea And Vomiting Intake and Output 11/09/21 11/10/21 11/10/21 22:59 06:59 14:59 Intake Total 1000 Output Total 1 150 Balance -1 850 Intake: Intake, IV Titration 1000 Amount Dextrose 5%-0.45% NaCl 1, 900 000 ml @ 75 mls/hr IV . [id number] [facility] Rx#:[id number] Piperacillin-Tazobactam 3 100 .375 gm In Sodium Chloride 0.9% 100 ml @ 25 mls/hr IVPB Q8HR [facility] Rx# :[id number] Output: Urine 150 Stool 1 Other: Voiding Method Urinal External Catheter Diaper External Catheter # Voids 2 # Bowel Movements 1 11/09/21 06:54 11/09/21 06:54
[2021-11-10] MEDS: DEXTROSE 5%-0.45% NACL 1,000 ML IV SCH (12:50)
--- NOTE | 2021-11-10 13:11 | P.PN ---
<Joan Atwood - Last Filed: 11/10/21 13:00> Subjective Progress Note Date: 11/10/21 CHIEF COMPLAINT: Abdominal pain HISTORY OF PRESENT ILLNESS: 81-year-old male seen today in follow-up with concer ns of colovesicular fistula and sigmoid mass. The patient is seen and examined without any points of abdominal pain. He has a Arriola catheter in place with dark urine. He had a bowel movement yesterday evening and today. He denies any nausea or vomiting. Case was discussed with both Dr. Bobby and Dr. Watts. Cardiology was consulted for clearance for possible diverting transverse loop colostomy, cyst to be further discussed by Dr. Watts with the family and patient. PHYSICAL EXAM: VITAL SIGNS: Reviewed. GENERAL: Well-developed in no acute distress. HEENT: No sclera icterus. Extraocular movements grossly intact. Moist buccal mucosa. Head is atraumatic, normocephalic. ABDOMEN: Soft. Nondistended. Nontender. NEUROLOGIC: Alert and oriented. Cranial nerves II through XII grossly intact. ASSESSMENT: 1. Abdominal pain 2. Colovesicular fistula with large rectosigmoid mass per CT abdomen and CT cystogram 3. History of coronary artery disease status post CABG, AICD, pacemaker 4. History of pulmonary embolism on Coumadin, currently on hold PLAN: 1. May continue clear liquid diet 2. Cardiology consulted for surgical clearance 3. Continue IV antibiotics 4. Dr. Watts to discuss possible surgical plan with patient and family The impression and plan of care has been dictated as directed. I performed a history and examination of this patient, discussed the same with the dictator. I agree with the dictator's note ,documented as a scribe. Any additional findings or plans will be noted. Objective - Vital Signs Vital signs: Vital Signs Temp 98.3 F 11/10/21 07:20 Pulse 72 11/10/21 07:20 Resp 14 11/10/21 07:20 BP 92/58 11/10/21 07:20 Pulse Ox 96 11/10/21 07:20 Intake & Output 11/09/21 11/10/21 11/10/21 18:59 06:59 18:59 Intake Total 1000 Output Total 403 151 Balance -403 849 Intake: Intake, IV Titration 1000 Amount Dextrose 5%-0.45% NaCl 1, 900 000 ml @ 75 mls/hr IV . [id number] [facility] Rx#:[id number] Piperacillin-Tazobactam 3 100 .375 gm In Sodium Chloride 0.9% 100 ml @ 25 mls/hr IVPB Q8HR [facility] Rx# :[id number] Output: Urine 400 150 Stool 3 1 Other: Voiding Method Urinal Urinal External Catheter Diaper Diaper External Catheter # Voids 2 # Bowel Movements 1 - Labs CBC & Chem 7: 11/09/21 06:54 11/09/21 06:54 Labs: Microbiology - Last 24 Hours (Table) 11/07/21 05:19 Urine Culture - Final Urine,Voided Escherichia coli <Pritesh Dale - Last Filed: 11/11/21 13:47> Subjective I have personally seen and examined the patient, reviewed the DRUG ABUSE COUNSELOR /PAs history, exam and MDM and agree with the assessment and plan as written. Based on total visit time, I have performed more than 50% of the visit. Await cardiology evaluation. Patient tentatively scheduled for diverting loop colostomy tomorrow. Objective - Vital Signs Vital signs: Vital Signs Temp 98 F 11/11/21 12:43 Pulse 81 11/11/21 12:43 Resp 18 11/11/21 12:43 BP 96/58 11/11/21 12:43 Pulse Ox 97 11/11/21 12:43 Intake & Output 11/10/21 11/11/21 11/11/21 18:59 06:59 18:59 Intake Total 400 Output Total 821 80 Balance 400 -821 -80 Intake: Oral 400 Output: Urine 820 80 Stool 1 Other: Voiding Method External Catheter External Catheter External Catheter - Labs CBC & Chem 7: 11/09/21 06:54 11/11/21 07:23 Labs: Abnormal Lab Results - Last 24 Hours (Table) 11/11/21 Range/Units 07:23 Sodium 130 L (135-145) mmol/L Carbon Dioxide 18.4 L (20.0-27.5) mmol/L Anion Gap 7.60 L (10.00-18.00) mmol/L BUN 4.3 L (9.0-27.0) mg/dL Creatinine 0.5 L (0.6-1.5) mg/dL BUN/Creatinine Ratio 8.60 L (12.00-20.00) Ratio Calcium 7.4 L (8.7-10.3) mg/dL
--- NOTE | 2021-11-10 17:23 | P.PN ---
Progress Note - Text Progress Note Date: 11/09/21 Chief Complaint: Abdominal pain This is a very pleasant 81-year-old patient, who follows with Dr. Raymond Gimenez. Chronic stable medical conditions include CAD, CHF, right-sided talc pleurodesis, CHF EF of 25%, osteoarthritis, pacemaker. Patient now presents with intermittent abdominal pain. Has not had a bowel movement for quite a while. Sometimes has small pellet-like BMs sometimes loose stools. Denies any fever and chills. Appetite is just about okay. Has been losing weight. Patient and came to the floor was seen by the nurse to pass some stool through his penis. November 08: Patient is having significant stool output through his penis. Some abdominal discomfort. Spoke TO Dr. valladares from general surgery. Hold off any surgery for now. Continue IV antibiotics. I concern is about obstruction. Also spoke to Dr. grey from urology. Discussed with patient. Understanding the risk for surgery is okay to proceed to the same. Would like a second opinion so I spoke to Dr. Dale from general surgery. He will see the patient tomorrow. Continue clear liquid diet. This morning CODE STATUS discussed with the patient. Was to be a DO NOT RESUSCITATE November 09: Spoke to the patient. Keen to proceed. Surgery. Dr. Cavanaugh spoke to the patient. Then he discussed with Dr. valladares from surgery. This is made to proceed with diverting colostomy. This will be done by Dr. valladares. Patient remains a liquid diet. Some abdominal discomfort. Review of systems: Was done for constitutional, cardiovascular, GI, pulmonary. relevant finding as above Current medications reviewed Past medical history to include: CAD, CHF EF 20%, hard of hearing, will be embolic, right pleural effusion with thoracentesis, and talc pleurodesis, 9096 pulmonary embolism, arthritis, pacemaker/AICD Social history: Lives with his . Has a walker. He smoked for many years. Was drinking 6-8 beers a day up to about 2 years ago. Family history: Reviewed, noncontributory to presentation Physical examination: VITAL SIGNS: 97.7, 74, 16, 95/57, 99% room air GENERAL: reclining in bed, awake tired. Loss of muscle mass and loss of subcutaneous fat. EYES: Pupils equal. Conjunctiva normal. HEENT: External appearance of nose and ears normal, oral cavity grossly normal hard of hearing. NECK: JVD not raised; masses not palpable. HEART: First and second heart sounds are normal; no edema. LUNGS: Respiratory rate normal; decreased breath sounds. ABDOMEN: Soft, distended, some lower abdominal tenderness, liver spleen not palpable, no masses palpable. PSYCH: Patient able to carry on with simple conversation. Wound affect normal. MUSCULOSKELETAL:No Clubbing/cyanosis;muscles-grossly intact. Evidence of OA. Also muscle mass NEUROLOGICAL: Cranial nerves grossly intact; no facial asymmetry, power and sensation grossly intact. INVESTIGATIONS, reviewed in the clinical context: November 09: White count 9 hemoglobin 10.4 platelets 268 potassium 3.4 creatinine 0.61 albumin 1.8 White count 14.6 hemoglobin 12.6 platelets 353 sodium 131 potassium 3.8 BUN 25 crit 0.58 Lactic acid 2.5 total bilirubin 1.6 albumin 2.5 UA positive for leukoesterase WBC Coronavirus [PCR]: Not detected EKG tracing personally reviewed by me-left bundle-branch block. T-wave changes. Computed tomography scan abdomen and pelvis without contrast: Heart is enlarged. Calcified pleural plaque at the right base. Numerous calcified gallstones. Moderate vascular calcification. Long-standing with no wall thickening of the distal sigmoid colon. Dilated large bowel with retained fecal material even fluid levels. No free air. L1 anterior wedging 25% T11 osteosclerotic focus measuring 1.5 cm. Possible cirrhosis. 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 Discussed with Dr. Cavanaugh went down discussed with Dr. valladares. Dr. valladares will proceed with diverting colostomy after further discussing with the patient and his daughter. -Severe protein calorie malnutrition: Slow to respond Currently the patient to remain on clear liquid diet. -Chronic medical debility -Chronic gait dysfunction, uses a walker Fall precautions -Chronic congestive heart failure from systolic dysfunction EF less than 20% Follow fluid status. Toprol-XL 25 mg a day -Moderate mitral regurgitation, moderate aortic valve sclerosis: Follow clinically -CAD Toprol-XL 25 mg a day -Choledocholithiasis, asymptomatic Follow clinically -Chronic pulmonary embolism Currently on Coumadin. Hold for now -COPD in a previous smoker DuoNeb as needed -Questionable cirrhosis on computed tomography scan Liver ultrasound. Clear liquids. Continue current medications. Cardiology consultation for perioperative and cardiac clearance. Dr. valladares was speak to the patient about surgery. Total time spent today about 45 minutes with over 25 minutes of discussion.
--- NOTE | 2021-11-10 17:50 | P.PN ---
Progress Note - Text Progress Note Date: 11/10/21 Chief Complaint: Abdominal pain This is a very pleasant 81-year-old patient, who follows with Dr. Raymond Gimenez. Chronic stable medical conditions include CAD, CHF, right-sided talc pleurodesis, CHF EF of 25%, osteoarthritis, pacemaker. Patient now presents with intermittent abdominal pain. Has not had a bowel movement for quite a while. Sometimes has small pellet-like BMs sometimes loose stools. Denies any fever and chills. Appetite is just about okay. Has been losing weight. Patient and came to the floor was seen by the nurse to pass some stool through his penis. November 08: Patient is having significant stool output through his penis. Some abdominal discomfort. Spoke TO Dr. valladares from general surgery. Hold off any surgery for now. Continue IV antibiotics. I concern is about obstruction. Also spoke to Dr. grey from urology. Discussed with patient. Understanding the risk for surgery is okay to proceed to the same. Would like a second opinion so I spoke to Dr. Dale from general surgery. He will see the patient tomorrow. Continue clear liquid diet. This morning CODE STATUS discussed with the patient. Was to be a DO NOT RESUSCITATE November 09: Spoke to the patient. Keen to proceed. Surgery. Dr. Cavanaugh spoke to the patient. Then he discussed with Dr. valladares from surgery. This is made to proceed with diverting colostomy. This will be done by Dr. valladares. Patient remains a liquid diet. Some abdominal discomfort. November 10: In bed. I spoke to Dr. valladares earlier today. He'll be talking the patient and the daughter this afternoon. Continue liquid diet. Tentative plan for surgery this Monday. Antibiotics to continue. Review of systems: Was done for constitutional, cardiovascular, GI, pulmonary. relevant finding as above Active Medications Acetaminophen (Acetaminophen Tab 325 Mg Tab) 650 mg PO Q6HR PRN PRN Reason: Mild Pain or Fever > 100.5 Last Admin: 11/09/21 02:04 Dose: 650 mg Documented by: Bisacodyl (Bisacodyl 10 Mg Supp) 10 mg RECTAL DAILY [facility] Last Admin: 11/10/21 09:27 Dose: Not Given Documented by: Docusate Sodium (Docusate 100 Mg Cap) 100 mg PO BID [facility] Last Admin: 11/10/21 07:41 Dose: 100 mg Documented by: Enoxaparin Sodium (Enoxaparin 40 Mg/0.4 Ml Syringe) 40 mg SQ DAILY [facility] Last Admin: 11/10/21 07:42 Dose: 40 mg Documented by: Piperacillin Sod/Tazobactam (Sod 3.375 gm/ Sodium Chloride) 100 mls @ 25 mls/hr IVPB Q8HR [facility] Last Admin: 11/10/21 17:12 Dose: 25 mls/hr Documented by: Dextrose/Sodium Chloride (Dextrose 5%-1/2ns Iv Soln) 1,000 mls @ 75 mls/hr IV .[id number] [facility] Last Admin: 11/10/21 12:50 Dose: 75 mls/hr Documented by: Metoprolol Succinate (Metoprolol Succinate (Er) 25 Mg Tab.Er.24h) 25 mg PO DAILY [facility] Last Admin: 11/10/21 09:25 Dose: Not Given Documented by: Morphine Sulfate (Morphine Sulfate 4 Mg/Ml Syringe) 4 mg IV Q4HR PRN PRN Reason: Severe Pain Naloxone HCl (Naloxone 0.4 Mg/Ml 1 Ml Vial) 0.2 mg IV Q2M PRN PRN Reason: Opioid Reversal Ondansetron HCl (Ondansetron 4 Mg/2 Ml Vial) 4 mg IVP Q8HR PRN PRN Reason: Nausea And Vomiting Last Admin: 11/10/21 08:20 Dose: 4 mg Documented by: Past medical history to include: CAD, CHF EF 20%, hard of hearing, will be embolic, right pleural effusion with thoracentesis, and talc pleurodesis, 9096 pulmonary embolism, arthritis, pacemaker/AICD Social history: Lives with his . Has a walker. He smoked for many years. Was drinking 6-8 beers a day up to about 2 years ago. Family history: Reviewed, noncontributory to presentation Physical examination: VITAL SIGNS: 97.7, 74, 16, 95/57, 99% room air GENERAL: reclining in bed, awake tired. [ Loss of muscle mass and loss of subcutaneous fat.] EYES: Pupils equal. Conjunctiva normal. HEENT: External appearance of nose and ears normal, oral cavity grossly normal hard of hearing. NECK: JVD not raised; masses not palpable. HEART: First and second heart sounds are normal; no edema. LUNGS: Respiratory rate normal; decreased breath sounds. ABDOMEN: Soft, distended, some lower abdominal tenderness, liver spleen not palpable, no masses palpable. PSYCH: Answering questions appropriately. Mood affect normal. MUSCULOSKELETAL:No Clubbing/cyanosis;muscles-grossly intact. Evidence of OA. Also decreased muscle mass NEUROLOGICAL: Cranial nerves grossly intact; no facial asymmetry, power and sensation grossly intact. INVESTIGATIONS, reviewed in the clinical context: November 09: White count 9 hemoglobin 10.4 platelets 268 potassium 3.4 creatinine 0.61 albumin 1.8 Liver ultrasound: Lobulated contour respectively left lobe, right lobe small in size,. Distended gallbladder with multiple gallstones and sludge. Confirmation of cirrhotic liver. White count 14.6 hemoglobin 12.6 platelets 353 sodium 131 potassium 3.8 BUN 25 crit 0.58 Lactic acid 2.5 total bilirubin 1.6 albumin 2.5 UA positive for leukoesterase WBC Coronavirus [PCR]: Not detected EKG tracing personally reviewed by me-left bundle-branch block. T-wave changes. Computed tomography scan abdomen and pelvis without contrast: Heart is enlarged. Calcified pleural plaque at the right base. Numerous calcified gallstones. Moderate vascular calcification. Long-standing with no wall thickening of the distal sigmoid colon. Dilated large bowel with retained fecal material even fluid levels. No free air. L1 anterior wedging 25% T11 osteosclerotic focus measuring 1.5 cm. Possible cirrhosis. 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 Dr. valladares will proceed with diverting colostomy this Monday after further discussing with the patient and his daughter. Cardiology clearance ordered -Severe protein calorie malnutrition: Slow to respond Currently the patient to remain on clear liquid diet. -Chronic medical debility -Chronic gait dysfunction, uses a walker Fall precautions -Chronic congestive heart failure from systolic dysfunction EF less than 20% Follow fluid status. Toprol-XL 25 mg a day -Moderate mitral regurgitation, moderate aortic valve sclerosis: Follow clinically -CAD Toprol-XL 25 mg a day -Choledocholithiasis, asymptomatic Follow clinically -Cirrhosis -Chronic pulmonary embolism Currently on Coumadin. Hold for now -COPD in a previous smoker Ariane as needed -Confirmed cirrhosis on liver ultrasound: New diagnosis Follow clinically. Clear liquids. Continue current medications. Tentative surgery being scheduled for this coming Monday by Dr. valladares. Discussed with patient. Did try to reach the daughter on the phone but went into voicemail.
[2021-11-10] MEDS ORDERED: POTASSIUM CHLORIDE ER 20 MEQ TAB.ER PO STA (21:18)
[2021-11-11] MEDS: PIPERACILLIN-TAZOBACTAM 3.375 GM in SODIUM CHLORIDE 0.9% 100 ML IVPB SCH ×3 (01:03→16:26)
[2021-11-11] MEDS: DEXTROSE 5%-0.45% NACL 1,000 ML IV SCH ×2 (01:07→13:21)
[2021-11-11] MEDS: ENOXAPARIN 40 MG/0.4 ML SYRINGE SQ SCH (09:22)
[2021-11-11] MEDS: DOCUSATE 100 MG CAP PO SCH ×2 (09:27→20:52)
[2021-11-11] MEDS: bisacodyL 10 MG SUPP RECTAL SCH (09:27)
[2021-11-11] MEDS: METOPROLOL SUCCINATE (ER) 25 MG TAB.ER.24H PO SCH (09:27)
[2021-11-11 11:13] LABS: African American GFR (CKD) 118.6 (60.0-200.0); Anion Gap 7.6 mmol/L (10.00-18.00); BUN/Creat Ratio 8.6 Ratio (12.00-20.00); Blood Urea Nitrogen 4.3 mg/dL (9.0-27.0); Calcium 7.4 mg/dL (8.7-10.3); Carbon Dioxide 18.4 mmol/L (20.0-27.5); Non-African American GFR(CKD) 102.3 (60.0-200.0); Potassium 3.6 mmol/L (3.5-5.5)
--- NOTE | 2021-11-11 15:09 | P.PN ---
<Joan Atwood - Last Filed: 11/11/21 15:03> Subjective Progress Note Date: 11/11/21 CHIEF COMPLAINT: Abdominal pain HISTORY OF PRESENT ILLNESS: 81-year-old male seen today in follow-up with concer ns of colovesicular fistula and sigmoid mass. The patient is seen and examined without any complaints of abdominal pain. He has a Arriola catheter in place with dark urine. 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 He denies any abdominal pain, nausea, or vomiting. He is tentatively scheduled for surgery tomorrow with Dr. Watts. PHYSICAL EXAM: VITAL SIGNS: Reviewed. GENERAL: Well-developed in no acute distress. HEENT: No sclera icterus. Extraocular movements grossly intact. Moist buccal mucosa. Head is atraumatic, normocephalic. ABDOMEN: Soft. Nondistended. Nontender. NEUROLOGIC: Alert and oriented. Cranial nerves II through XII grossly intact. ASSESSMENT: 1. Abdominal pain 2. Colovesicular fistula with large rectosigmoid mass per CT abdomen and CT cystogram 3. History of coronary artery disease status post CABG, AICD, pacemaker 4. History of pulmonary embolism on Coumadin, currently on hold PLAN: 1. Diet per recommendations by Dr. watts 2. Patient is scheduled for laparoscopic/possible open transverse loop colostomy tomorrow with Dr. Watts Thank you for this consultation, we will sign off at this time. The impression and plan of care has been dictated as directed. I performed a history and examination of this patient, discussed the same with the dictator. I agree with the dictator's note ,documented as a scribe. Any additional findings or plans will be noted. Objective - Vital Signs Vital signs: Vital Signs Temp 97.8 F 11/11/21 03:55 Pulse 89 11/11/21 03:55 Resp 16 11/11/21 03:55 BP 94/61 11/11/21 03:55 Pulse Ox 97 11/11/21 03:55 Intake & Output 11/10/21 11/11/21 11/11/21 18:59 06:59 18:59 Intake Total 400 Output Total 821 Balance 400 -821 Intake: Oral 400 Output: Urine 820 Stool 1 Other: Voiding Method External Catheter External Catheter - Labs CBC & Chem 7: 11/09/21 06:54 11/11/21 07:23 <Pritesh Dale - Last Filed: 11/11/21 17:51> Subjective I have personally seen and examined the patient, reviewed the DIRECTOR OF [employer]UC[employer] /PAs history, exam and MDM and agree with the assessment and plan as written. Based on total visit time, I have performed more than 50% of the visit. As above. Cardiology note reviewed. Patient remains scheduled for diverting loop colostomy tomorrow. We'll sign off. Please call if needed. Case again discussed with Dr. watts. Objective - Vital Signs Vital signs: Vital Signs Temp 98 F 11/11/21 12:43 Pulse 81 11/11/21 12:43 Resp 18 11/11/21 12:43 BP 96/58 11/11/21 12:43 Pulse Ox 97 11/11/21 12:43 Intake & Output 11/10/21 11/11/21 11/11/21 18:59 06:59 18:59 Intake Total 400 Output Total 821 80 Balance 400 -821 -80 Weight 45.359 kg Intake: Oral 400 Output: Urine 820 80 Stool 1 Other: Voiding Method External Catheter External Catheter External Catheter # Voids 3 - Labs CBC & Chem 7: 11/09/21 06:54 11/11/21 07:23 Labs: Abnormal Lab Results - Last 24 Hours (Table) 11/11/21 Range/Units 07:23 Sodium 130 L (135-145) mmol/L Carbon Dioxide 18.4 L (20.0-27.5) mmol/L Anion Gap 7.60 L (10.00-18.00) mmol/L BUN 4.3 L (9.0-27.0) mg/dL Creatinine 0.5 L (0.6-1.5) mg/dL BUN/Creatinine Ratio 8.60 L (12.00-20.00) Ratio Calcium 7.4 L (8.7-10.3) mg/dL
--- NOTE | 2021-11-11 16:22 | P.PN ---
Subjective Patient denies pain today, no questions about surgery Objective - Vital Signs Vital signs: Vital Signs Temp 98 F 11/11/21 12:43 Pulse 81 11/11/21 12:43 Resp 18 11/11/21 12:43 BP 96/58 11/11/21 12:43 Pulse Ox 97 11/11/21 12:43 Intake & Output 11/10/21 11/11/21 11/11/21 18:59 06:59 18:59 Intake Total 400 Output Total 821 80 Balance 400 -821 -80 Weight 45.359 kg Intake: Oral 400 Output: Urine 820 80 Stool 1 Other: Voiding Method External Catheter External Catheter External Catheter - Constitutional General appearance: Present: cooperative - Cardiovascular Rhythm: regular - Gastrointestinal Gastrointestinal Comment(s): S/mild distention/NT - Labs CBC & Chem 7: 11/09/21 06:54 11/11/21 07:23 Labs: Abnormal Lab Results - Last 24 Hours (Table) 11/11/21 Range/Units 07:23 Sodium 130 L (135-145) mmol/L Carbon Dioxide 18.4 L (20.0-27.5) mmol/L Anion Gap 7.60 L (10.00-18.00) mmol/L BUN 4.3 L (9.0-27.0) mg/dL Creatinine 0.5 L (0.6-1.5) mg/dL BUN/Creatinine Ratio 8.60 L (12.00-20.00) Ratio Calcium 7.4 L (8.7-10.3) mg/dL Assessment and Plan Assessment: 81-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 Plan: Plan is for diverting loop colostomy tomorrow, discussion was had with patients daughter and him. He understand and agrees. This is for paliation of the near obstructing mass and the fistula. He will need further workup as an outpatient for definitive care. Will also plan for flex sig during procedure for biopsies. Patient is high risk per cardiology. This was discussed with the patient and his daughter.
--- NOTE | 2021-11-11 16:23 | P.PN ---
Subjective Progress Note Date: 11/10/21 Patient denies pain today, he is still not passing a lot of stool Objective - Vital Signs Vital signs: Vital Signs Temp 98 F 11/11/21 12:43 Pulse 81 11/11/21 12:43 Resp 18 11/11/21 12:43 BP 96/58 11/11/21 12:43 Pulse Ox 97 11/11/21 12:43 Intake & Output 11/10/21 11/11/21 11/11/21 18:59 06:59 18:59 Intake Total 400 Output Total 821 80 Balance 400 -821 -80 Weight 45.359 kg Intake: Oral 400 Output: Urine 820 80 Stool 1 Other: Voiding Method External Catheter External Catheter External Catheter - Constitutional General appearance: Present: cooperative - Gastrointestinal Gastrointestinal Comment(s): Mild distention - Labs CBC & Chem 7: 11/09/21 06:54 11/11/21 07:23 Labs: Abnormal Lab Results - Last 24 Hours (Table) 11/11/21 Range/Units 07:23 Sodium 130 L (135-145) mmol/L Carbon Dioxide 18.4 L (20.0-27.5) mmol/L Anion Gap 7.60 L (10.00-18.00) mmol/L BUN 4.3 L (9.0-27.0) mg/dL Creatinine 0.5 L (0.6-1.5) mg/dL BUN/Creatinine Ratio 8.60 L (12.00-20.00) Ratio Calcium 7.4 L (8.7-10.3) mg/dL Assessment and Plan Assessment: 81-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 Plan: Plan is for diverting loop colostomy monday, discussion was had with patients daughter and him. He understand and agrees. This is for palliation of the near obstructing mass and the fistula. He will need further workup as an outpatient for definitive care. Will also plan for flex sig during procedure for biopsies. Patient awaiting cardiac consult and clearance.
--- NOTE | 2021-11-11 20:38 | P.PN ---
Progress Note - Text Progress Note Date: 11/11/21 Chief Complaint: Abdominal pain This is a very pleasant 81-year-old patient, who follows with Dr. Raymond Gimenez. Chronic stable medical conditions include CAD, CHF, right-sided talc pleurodesis, CHF EF of 25%, osteoarthritis, pacemaker. Patient now presents with intermittent abdominal pain. Has not had a bowel movement for quite a while. Sometimes has small pellet-like BMs sometimes loose stools. Denies any fever and chills. Appetite is just about okay. Has been losing weight. Patient and came to the floor was seen by the nurse to pass some stool through his penis. November 08: Patient is having significant stool output through his penis. Some abdominal discomfort. Spoke TO Dr. valladares from general surgery. Hold off any surgery for now. Continue IV antibiotics. I concern is about obstruction. Also spoke to Dr. grey from urology. Discussed with patient. Understanding the risk for surgery is okay to proceed to the same. Would like a second opinion so I spoke to Dr. Dale from general surgery. He will see the patient tomorrow. Continue clear liquid diet. This morning CODE STATUS discussed with the patient. Was to be a DO NOT RESUSCITATE November 09: Spoke to the patient. Keen to proceed. Surgery. Dr. Cavanaugh spoke to the patient. Then he discussed with Dr. valladares from surgery. This is made to proceed with diverting colostomy. This will be done by Dr. valladares. Patient remains a liquid diet. Some abdominal discomfort. November 10: In bed. I spoke to Dr. valladares earlier today. He'll be talking the patient and the daughter this afternoon. Continue liquid diet. Tentative plan for surgery this Monday. Antibiotics to continue. November 11: In bed. Awaiting surgery. No new issues. Some abdominal discomfort. Liquid diet. Surgery planned for tomorrow. Review of systems: Was done for constitutional, cardiovascular, GI, pulmonary. relevant finding as above Active Medications Acetaminophen (Acetaminophen Tab 325 Mg Tab) 650 mg PO Q6HR PRN PRN Reason: Mild Pain or Fever > 100.5 Last Admin: 11/09/21 02:04 Dose: 650 mg Documented by: Bisacodyl (Bisacodyl 10 Mg Supp) 10 mg RECTAL DAILY [facility] Last Admin: 11/11/21 09:27 Dose: Not Given Documented by: Docusate Sodium (Docusate 100 Mg Cap) 100 mg PO BID [facility] Last Admin: 11/11/21 09:27 Dose: Not Given Documented by: Enoxaparin Sodium (Enoxaparin 40 Mg/0.4 Ml Syringe) 40 mg SQ DAILY [facility] Last Admin: 11/11/21 09:22 Dose: 40 mg Documented by: Piperacillin Sod/Tazobactam (Sod 3.375 gm/ Sodium Chloride) 100 mls @ 25 mls/hr IVPB Q8HR [facility] Last Admin: 11/11/21 16:26 Dose: 25 mls/hr Documented by: Dextrose/Sodium Chloride (Dextrose 5%-1/2ns Iv Soln) 1,000 mls @ 75 mls/hr IV .[id number] [facility] Last Admin: 11/11/21 13:21 Dose: 75 mls/hr Documented by: Metoprolol Succinate (Metoprolol Succinate (Er) 25 Mg Tab.Er.24h) 25 mg PO DAILY [facility] Last Admin: 11/11/21 09:27 Dose: Not Given Documented by: Morphine Sulfate (Morphine Sulfate 4 Mg/Ml Syringe) 4 mg IV Q4HR PRN PRN Reason: Severe Pain Naloxone HCl (Naloxone 0.4 Mg/Ml 1 Ml Vial) 0.2 mg IV Q2M PRN PRN Reason: Opioid Reversal Ondansetron HCl (Ondansetron 4 Mg/2 Ml Vial) 4 mg IVP Q8HR PRN PRN Reason: Nausea And Vomiting Last Admin: 11/10/21 08:20 Dose: 4 mg Documented by: Past medical history to include: CAD, CHF EF 20%, hard of hearing, will be embolic, right pleural effusion with thoracentesis, and talc pleurodesis, 9096 pulmonary embolism, arthritis, pacemaker/AICD Social history: Lives with his . Has a walker. He smoked for many years. Was drinking 6-8 beers a day up to about 2 years ago. Family history: Reviewed, noncontributory to presentation Physical examination: VITAL SIGNS: 98, 81, 18, 96/58, 97% room air GENERAL: reclining in bed, awake tired. [ Loss of muscle mass and loss of subcutaneous fat.] EYES: Pupils equal. Conjunctiva normal. HEENT: External appearance of nose and ears normal, oral cavity grossly normal hard of hearing. NECK: JVD not raised; masses not palpable. HEART: First and second heart sounds are normal; no edema. LUNGS: Respiratory rate normal; decreased breath sounds. ABDOMEN: Soft, distended, some lower abdominal tenderness, liver spleen not palpable, no masses palpable. PSYCH: Answering questions appropriately. Mood affect normal. MUSCULOSKELETAL:No Clubbing/cyanosis;muscles-grossly intact. Evidence of OA. Also decreased muscle mass NEUROLOGICAL: Cranial nerves grossly intact; no facial asymmetry, power and sensation grossly intact. INVESTIGATIONS, reviewed in the clinical context: November 11: Potassium 3.6 BUN 4.3 creatinine 0.5 Urine culture: E. coli November 09: White count 9 hemoglobin 10.4 platelets 268 potassium 3.4 creatinine 0.61 albumin 1.8 Liver ultrasound: Lobulated contour respectively left lobe, right lobe small in size,. Distended gallbladder with multiple gallstones and sludge. Confirmation of cirrhotic liver. White count 14.6 hemoglobin 12.6 platelets 353 sodium 131 potassium 3.8 BUN 25 crit 0.58 Lactic acid 2.5 total bilirubin 1.6 albumin 2.5 UA positive for leukoesterase WBC Coronavirus [PCR]: Not detected EKG tracing personally reviewed by me-left bundle-branch block. T-wave changes. Computed tomography scan abdomen and pelvis without contrast: Heart is enlarged. Calcified pleural plaque at the right base. Numerous calcified gallstones. Moderate vascular calcification. Long-standing with no wall thickening of the distal sigmoid colon. Dilated large bowel with retained fecal material even fluid levels. No free air. L1 anterior wedging 25% T11 osteosclerotic focus measuring 1.5 cm. Possible cirrhosis. 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 Dr. valladares will proceed with diverting colostomy this Monday- high risk. -Severe protein calorie malnutrition: Slow to respond Currently the patient to remain on clear liquid diet. -Chronic medical debility -Chronic gait dysfunction, uses a walker Fall precautions -Chronic congestive heart failure from systolic dysfunction EF less than 20% Follow fluid status. Toprol-XL 25 mg a day -Moderate mitral regurgitation, moderate aortic valve sclerosis: Follow clinically -CAD Toprol-XL 25 mg a day -Choledocholithiasis, asymptomatic Follow clinically -Chronic pulmonary embolism Currently on Coumadin. Hold for now -COPD in a previous smoker DuoNeb as needed -Cirrhosis, cause unknown Currently hold off any further workup. Clear liquids. Continue current medications. Dr. valladares spoke to patient daughter. Pending surgery tomorrow..
[2021-11-12] MEDS: PIPERACILLIN-TAZOBACTAM 3.375 GM in SODIUM CHLORIDE 0.9% 100 ML IVPB SCH ×4 (00:21→23:47)
[2021-11-12] MEDS: DEXTROSE 5%-0.45% NACL 1,000 ML IV SCH ×2 (00:26→17:05)
[2021-11-12] MEDS ORDERED: NA PHOS,M-B/NA PHOS,DI-BA 133 ML ENEMA RECTAL ONE (08:37)
[2021-11-12] MEDS: DOCUSATE 100 MG CAP PO SCH ×2 (09:14→21:20)
[2021-11-12] MEDS: bisacodyL 10 MG SUPP RECTAL SCH (09:17)
[2021-11-12] MEDS: METOPROLOL SUCCINATE (ER) 25 MG TAB.ER.24H PO SCH (09:19)
[2021-11-12] MEDS: FAMOTIDINE 20 MG/2 ML VIAL IV SCH ×2 (09:20→21:19)
[2021-11-12 12:07] LABS: Glucose,Whole Blood 96 mg/dL (75-99)
[2021-11-12] MEDS ORDERED: IV FLUID CONTINUATION 1,000 ML IV ONE (12:12)
--- NOTE | 2021-11-12 12:47 | P.PN ---
Subjective This is a very pleasant 81-year-old patient, who follows with Dr. Raymond Gimenez. Chronic stable medical conditions include CAD, CHF, right-sided talc pleurodesis, CHF EF of 25%, osteoarthritis, pacemaker. Patient now presents with intermittent abdominal pain. Has not had a bowel movement for quite a while. Sometimes has small pellet-like BMs sometimes loose stools. Denies any fever and chills. Appetite is just about okay. Has been losing weight. Patient and came to the floor was seen by the nurse to pass some stool through his penis. November 08: Patient is having significant stool output through his penis. Some abdominal discomfort. Spoke TO Dr. valladares from general surgery. Hold off any surgery for now. Continue IV antibiotics. I concern is about obstruction. Also spoke to Dr. grey from urology. Discussed with patient. Understanding the risk for surgery is okay to proceed to the same. Would like a second opinion so I spoke to Dr. Dale from general surgery. He will see the patient tomorrow. Continue clear liquid diet. This morning CODE STATUS discussed with the patient. Was to be a DO NOT RESUSCITATE November 09: Spoke to the patient. Keen to proceed. Surgery. Dr. Cavanaugh spoke to the patient. Then he discussed with Dr. valladares from surgery. This is made to proceed with diverting colostomy. This will be done by Dr. valladares. Patient remains a liquid diet. Some abdominal discomfort. November 10: In bed. I spoke to Dr. valladares earlier today. He'll be talking the patient and the daughter this afternoon. Continue liquid diet. Tentative plan for surgery this Monday. Antibiotics to continue. November 11: In bed. Awaiting surgery. No new issues. Some abdominal discomfort. Liquid diet. Surgery planned for tomorrow. 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 coli, patient is currently covered with Zosyn and gentle IV hydration. Also she was on Coumadin at home for her history of pulmonary embolism. Surgery team are on the case and the plan is for diverting loop colostomy for palliation. Also she got an enema today Neurology service already been contacted and evaluated the patient, possible patient needs tertiary care center Objective - Vital Signs Vital signs: Vital Signs Temp 97.9 F 11/12/21 04:19 Pulse 83 11/12/21 04:19 Resp 14 11/12/21 04:19 BP 88/46 11/12/21 04:19 Pulse Ox 98 11/12/21 04:19 Intake & Output 11/11/21 11/12/21 11/12/21 18:59 06:59 18:59 Intake Total 900 Output Total 81 Balance -81 900 Weight 45.359 kg Intake: Intake, IV Titration 900 Amount Dextrose 5%-0.45% NaCl 1, 900 000 ml @ 75 mls/hr IV . [id number] [facility] Rx#:[id number] Output: Urine 80 Stool 1 Other: Voiding Method External Catheter # Voids 3 1 # Bowel Movements 2 1 - Exam GENERAL: The patient is alert and oriented x3, not in any acute distress. Well developed, well nourished. HEENT: Pupils are round and equally reacting to light. EOMI. No scleral icterus. No conjunctival pallor. Normocephalic, atraumatic. No pharyngeal erythema. No thyromegaly. CARDIOVASCULAR: S1 and S2 present. No murmurs, rubs, or gallops. PULMONARY: Chest is clear to auscultation, no wheezing or crackles. -ABDOMEN: Soft, nontender, mildly distended, normoactive bowel sounds. No palpable organomegaly. MUSCULOSKELETAL: No joint swelling or deformity. EXTREMITIES: No cyanosis, clubbing, or pedal edema. NEUROLOGICAL: Gross neurological examination did not reveal any focal deficits. SKIN: No rashes. no petechiae. 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 Dr. valladares will proceed with diverting colostomy this Monday- high risk. -Severe protein calorie malnutrition: Slow to respond Currently the patient to remain on clear liquid diet. -Chronic medical debility -Chronic gait dysfunction, uses a walker Fall precautions -Chronic congestive heart failure from systolic dysfunction EF less than 20% Follow fluid status. Toprol-XL 25 mg a day -Moderate mitral regurgitation, moderate aortic valve sclerosis: Follow clinically -CAD Toprol-XL 25 mg a day -Choledocholithiasis, asymptomatic Follow clinically -Chronic pulmonary embolism Currently on Coumadin. Hold for now -COPD in a previous smoker DuoNeb as needed -Cirrhosis, cause unknown Currently hold off any further workup.
[2021-11-12] MEDS ORDERED: ONDANSETRON 4 MG/2 ML VIAL IVP ONE (12:59)
[2021-11-12] MEDS ORDERED: DEXAMETHASONE SOD PHOSPHATE 4 MG/ML 1 ML VIAL IVP ONE (13:00)
[2021-11-12] MEDS: ENOXAPARIN 40 MG/0.4 ML SYRINGE SQ SCH (13:00)
[2021-11-12] MEDS ORDERED: NEOSTIGMINE 1 MG/ML 10 ML VIAL ONE (13:23)
[2021-11-12] MEDS ORDERED: SUCCINYLCHOLINE CHLORIDE 100 MG/5 ML SYR IV ONE (13:23)
[2021-11-12] MEDS ORDERED: GLYCOPYRROLATE 0.2 MG/ML 2 ML VIAL ONE (13:23)
[2021-11-12] MEDS ORDERED: PHENYLEPHRINE-0.9% NACL SYG 1,000 MCG/10 ML SYRINGE ONE (13:23)
[2021-11-12] MEDS ORDERED: ETOMIDATE 2 MG/ML 10 ML VIAL ONE (13:23)
[2021-11-12] MEDS ORDERED: fentaNYL (PF) 50 MCG/ML 2 ML AMP ONE (13:23)
[2021-11-12] MEDS ORDERED: ROCURONIUM 10 MG/ML (5 ML VIAL) IV ONE (13:23)
--- NOTE | 2021-11-12 13:36 | P.ANPRN ---
Procedure Note - Anesthesia - Invasive Line Left Arterial Line Time Out Performed: Yes Date of Procedure: 11/12/21 Time of Procedure: 12:50 Location of Patient: PreOp Preparation: Sterile Prep, Sterile Dressing Arterial Line Location: Radial Ultrasound Used: Yes Purpose - Visualization and Identification of Vasculature: Yes Needle Guage: 20 Image Stored and Saved: Yes Narrative: Left radial placed after negative Curtis test.
[2021-11-12] MEDS ORDERED: BUPIVACAIN-EPI 0.25%-1:200,000 30 ML VIAL SQ ONE ×2 (13:57)
--- NOTE | 2021-11-12 15:13 | P.OP ---
Date of Procedure: 11/12/21 Preoperative Diagnosis: Near obstructing rectosigmoid mass with colovesicular fistula Postoperative Diagnosis: Obstructing rectal mass with colovesicular fistula Procedure(s) Performed: Laparoscopic-assisted loop transverse colostomy with flexible sigmoidoscopy and cold biopsy of rectal mass at 12 cm from anal verge Anesthesia: GABINO Surgeon: Meliton Watts Estimated Blood Loss (ml): 10 Condition: stable Disposition: PACU Description of Procedure: Patient is brought to the obtuse suite remained in the supine position when general endotracheal anesthesia per Department of anesthesia timeout performed correct patient correct procedure correct site was verified. Then prepped and draped in usual sterile fashion a 5 mm incision was made at [place] point and using a 5 mm Visiport the abdomen was entered under direct visualization and insufflated. He was placed in Trendelenburg and there was no obvious tumor noted in the pelvis. The patient did have a somewhat dilated transverse colon. An area in the mid transverse colon was selected with good mobility and a 12 mm port was placed directly over top of this a [place] grasper was used to grasp the transverse colon abdomen was desufflated the the port was removed and the incision was widened around the skin taking off a circular portion and was widened down to the fascia which was incised wide enough to bring up the loop colostomy approximately 3 cm. A red rubber catheter was placed underneath the colon through a small rent in the mesentery as a bridge. The colon was then opened with the Bovie electrocautery and the proximal end was matured using brooking 30 stitches followed by simple interrupted stitches the distal end was matured using 3-0 interrupted Vicryl stitches. The red rubber catheter was sutured together. The 5 mm incision site was closed with 4-0 Monocryl suture followed by skin glue the ostomy appliance was applied patient was placed in frog leg position and sigmoidal scope was placed. At approximately 12 cm there was a large what appeared to be obstructing or near obstructing tumor the scope was unable to pass this was friable tumor. Multiple biopsies were taken patient tolerated the procedure well no apparent complications
[2021-11-12] MEDS: ACETAMINOPHEN TAB 325 MG TAB PO PRN (22:24)
[2021-11-13] MEDS: DEXTROSE 5%-0.45% NACL 1,000 ML IV SCH ×2 (05:52→20:31)
[2021-11-13] MEDS: FAMOTIDINE 20 MG/2 ML VIAL IV SCH ×2 (08:29→20:31)
[2021-11-13] MEDS: DOCUSATE 100 MG CAP PO SCH ×2 (08:29→20:31)
[2021-11-13] MEDS: METOPROLOL SUCCINATE (ER) 25 MG TAB.ER.24H PO SCH (08:29)
[2021-11-13] MEDS: ENOXAPARIN 40 MG/0.4 ML SYRINGE SQ SCH (08:29)
[2021-11-13] MEDS: bisacodyL 10 MG SUPP RECTAL SCH (08:29)
[2021-11-13] MEDS: PIPERACILLIN-TAZOBACTAM 3.375 GM in SODIUM CHLORIDE 0.9% 100 ML IVPB SCH ×3 (08:30→23:21)
--- NOTE | 2021-11-13 12:38 | P.PN ---
Progress Note - Text Progress Note Date: 11/13/21 Patient seen and examined at bedside. Only complaint is that of hunger. He denies significant pains. Resting comfortably. No fever or chills. No overnight events reported. Arriola catheter in place. Temperature 97.7F, heart rate 69, blood pressure 93/58, no change with respect to persistent relative hypotension, respiratory rate 20 at 98% O2 saturation on room air. Cardiovascular: Regular rate and rhythm are regular. Respiratory: Lungs are clear to auscultation bilaterally. Abdominal exam: Loop transverse colostomy is in place, well-perfused, mild postoperative edema, no function yet. Abdominal exam is benign, no tenderness to palpation, no guarding or rebound, there is minimal distention with tympany. Extremities: Dysfunctional uterine well-perfused. Impression: 1) 81-year-old gentleman postoperative day 1 from laparoscopic diverting transverse loop colostomy, intraoperative flexible sigmoidoscopy and biopsy of obstructing rectosigmoid mass. Associated colovesicular fistula. 2) Severe protein calorie malnutrition. 3) Chronic systolic congestive heart failure. Moderate mitral regurgitation and aortic valve sclerosis. Underlying coronary artery disease. 4) COPD. 5) Reported history of cirrhosis. Plan: 1) Advance to clear liquids as tolerated. Await ostomy function to advance diet further. Okay to resume Coumadin 48 hours postop.
[2021-11-13 12:44] LABS: Basophils # (A) 0.03 X 10*3/uL (0.00-0.10); Basophils % (A) 0.2 %; Eosinophils # (A) 0.01 X 10*3/uL (0.04-0.35); Eosinophils % (A) 0.1 %; HCT 34.7 % (39.6-50.0); HGB 10.7 g/dL (13.0-17.0); Immature Grans, Automated 1.2 %; Lymphocytes % (A) 9.1 %; MCHC 30.8 g/dL (32.0-37.0); MCV 90.8 fL (80.0-97.0); Mean Platelet Volume 9.6 fL (9.5-12.2); Monocytes % (A) 11.6 %; NRBC Per 100 WBC 0 /100 WBCS (0.0-0.0); Neutrophils % (A) 77.8 %; Platelet Count 367 X 10*3/uL (140-440); RBC 3.82 X 10*6/uL (4.40-5.60); RDW 15.3 % (11.5-14.5); WBC 12.08 X 10*3/uL (4.50-10.00)
[2021-11-13 13:24] LABS: African American GFR (CKD) 108.9 (60.0-200.0); Anion Gap 11.4 mmol/L (10.00-18.00); BUN/Creat Ratio 10.57 Ratio (12.00-20.00); Blood Urea Nitrogen 6.5 mg/dL (9.0-27.0); Calcium 7.7 mg/dL (8.7-10.3); Carbon Dioxide 15.7 mmol/L (20.0-27.5); Magnesium 1.8 mg/dL (1.5-2.4); Non-African American GFR(CKD) 93.9 (60.0-200.0); Potassium 4.5 mmol/L (3.5-5.5)
--- NOTE | 2021-11-13 19:54 | P.PN ---
Subjective This is a very pleasant 81-year-old patient, who follows with Dr. Raymond Gimenez. Chronic stable medical conditions include CAD, CHF, right-sided talc pleurodesis, CHF EF of 25%, osteoarthritis, pacemaker. Patient now presents with intermittent abdominal pain. Has not had a bowel movement for quite a while. Sometimes has small pellet-like BMs sometimes loose stools. Denies any fever and chills. Appetite is just about okay. Has been losing weight. Patient and came to the floor was seen by the nurse to pass some stool through his penis. November 08: Patient is having significant stool output through his penis. Some abdominal discomfort. Spoke TO Dr. valladares from general surgery. Hold off any surgery for now. Continue IV antibiotics. I concern is about obstruction. Also spoke to Dr. grey from urology. Discussed with patient. Understanding the risk for surgery is okay to proceed to the same. Would like a second opinion so I spoke to Dr. Dale from general surgery. He will see the patient tomorrow. Continue clear liquid diet. This morning CODE STATUS discussed with the patient. Was to be a DO NOT RESUSCITATE November 09: Spoke to the patient. Keen to proceed. Surgery. Dr. Cavanaugh spoke to the patient. Then he discussed with Dr. valladares from surgery. This is made to proceed with diverting colostomy. This will be done by Dr. valladares. Patient remains a liquid diet. Some abdominal discomfort. November 10: In bed. I spoke to Dr. valladares earlier today. He'll be talking the patient and the daughter this afternoon. Continue liquid diet. Tentative plan for surgery this Monday. Antibiotics to continue. November 11: In bed. Awaiting surgery. No new issues. Some abdominal discomfort. Liquid diet. Surgery planned for tomorrow. 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 coli, patient is currently covered with Zosyn and gentle IV hydration. Also she was on Coumadin at home for her history of pulmonary embolism. Surgery team are on the case and the plan is for diverting loop colostomy for palliation. Also she got an enema today Neurology service already been contacted and evaluated the patient, possible patient needs tertiary care center 11/13/2021 Patient status post laparoscopic transverse colostomy and flexible sigmoidoscopy and biopsy of obstructive rectal mass with colovesical fistula in a Place. Biopsy still pending. Patient is on liquid diet started today, his colostomy bag still empty. But no vomiting, no abdominal pain. Has mild leukocytosis and mild hyponatremia We'll keep monitoring him. Biopsy still pending Objective - Vital Signs Vital signs: Vital Signs Temp 97.7 F 11/13/21 04:30 Pulse 72 11/13/21 08:24 Resp 20 11/13/21 04:30 BP 93/58 11/13/21 08:24 Pulse Ox 98 11/13/21 04:30 Intake & Output 11/12/21 11/13/21 11/13/21 18:59 06:59 18:59 Intake Total 250 0 Output Total 360 Balance -110 0 Weight 45.359 kg Intake: IV 250 Oral 0 Output: Urine 350 Estimated Blood Loss 10 Other: Voiding Method External Catheter External Catheter External Catheter # Voids 2 # Bowel Movements 2 - Exam GENERAL: The patient is alert and oriented x3, not in any acute distress. Well developed, well nourished. HEENT: Pupils are round and equally reacting to light. EOMI. No scleral icterus. No conjunctival pallor. Normocephalic, atraumatic. No pharyngeal erythema. No thyromegaly. CARDIOVASCULAR: S1 and S2 present. No murmurs, rubs, or gallops. PULMONARY: Chest is clear to auscultation, no wheezing or crackles. -ABDOMEN: Soft, nontender, mildly distended, normoactive bowel sounds. No palpable organomegaly. Right lower quadrant colostomy MUSCULOSKELETAL: No joint swelling or deformity. EXTREMITIES: No cyanosis, clubbing, or pedal edema. NEUROLOGICAL: Gross neurological examination did not reveal any focal deficits. SKIN: No rashes. no petechiae. 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 Follow-up biopsy result. Surgery team on the case -Severe protein calorie malnutrition: Slow to respond Currently the patient to remain on clear liquid diet. -Chronic medical debility -Chronic gait dysfunction, uses a walker Fall precautions -Chronic congestive heart failure from systolic dysfunction EF less than 20% Follow fluid status. Toprol-XL 25 mg a day -Moderate mitral regurgitation, moderate aortic valve sclerosis: Follow clinically -CAD Toprol-XL 25 mg a day -Choledocholithiasis, asymptomatic Follow clinically -Chronic pulmonary embolism Currently on Coumadin. Hold for now -COPD in a previous smoker DuoNeb as needed -Cirrhosis, cause unknown Currently hold off any further workup.
[2021-11-14] MEDS: bisacodyL 10 MG SUPP RECTAL SCH (07:39)
[2021-11-14] MEDS: PIPERACILLIN-TAZOBACTAM 3.375 GM in SODIUM CHLORIDE 0.9% 100 ML IVPB SCH ×4 (07:40→23:42)
[2021-11-14] MEDS: DOCUSATE 100 MG CAP PO SCH ×2 (07:46→21:08)
[2021-11-14] MEDS: METOPROLOL SUCCINATE (ER) 25 MG TAB.ER.24H PO SCH (07:46)
[2021-11-14] MEDS: ENOXAPARIN 40 MG/0.4 ML SYRINGE SQ SCH (07:46)
[2021-11-14] MEDS: FAMOTIDINE 20 MG/2 ML VIAL IV SCH ×2 (07:46→21:08)
[2021-11-14 09:19] LABS: HGB 11.1 g/dL (13.0-17.0); MCH 28.2 pg (27.0-32.0); MCHC 32.6 g/dL (32.0-37.0); MCV 86.3 fL (80.0-97.0); Mean Platelet Volume 9.2 fL (9.5-12.2); NRBC Per 100 WBC 0 /100 WBCS (0.0-0.0); Platelet Count 424 X 10*3/uL (140-440); RBC 3.94 X 10*6/uL (4.40-5.60); RDW 15.2 % (11.5-14.5); WBC 28.15 X 10*3/uL (4.50-10.00)
[2021-11-14 10:02] LABS: Basophils # (A) 0.09 X 10*3/uL (0.00-0.10); Basophils % (A) 0.3 %; Eosinophils % (A) 0.4 %; Immature Grans, Automated 0.8 %; Lymphocytes # (A) 1.05 X 10*3/uL (0.90-5.00); Lymphocytes % (A) 3.7 %; Monocytes # (A) 2.63 X 10*3/uL (0.20-1.00); Monocytes % (A) 9.3 %; Neutrophils # (A) 24.05 X 10*3/uL (1.80-7.70); Neutrophils % (A) 85.5 %; RBC Morphology NORMAL
[2021-11-14 10:15] LABS: African American GFR (CKD) 110.1 (60.0-200.0); Anion Gap 11.7 mmol/L (10.00-18.00); BUN/Creat Ratio 10.33 Ratio (12.00-20.00); Blood Urea Nitrogen 6.2 mg/dL (9.0-27.0); Calcium 7.5 mg/dL (8.7-10.3); Carbon Dioxide 17.3 mmol/L (20.0-27.5); Potassium 4.1 mmol/L (3.5-5.5)
--- NOTE | 2021-11-14 11:33 | P.PN ---
Subjective Progress Note Date: 11/14/21 Patient seen and examined at bedside. He admits to some severe diffuse abdominal cramping this morning associated with some passage of flatus via ostomy. Pain is mostly subsided by now. Not feeling hungry today. Patient denies fever or chills. No issues with nausea or vomiting. No reported cough, chest pain or shortness of breath.. Arriola catheter in place with clear urine and some sediment. White blood cell count 28.15, hemoglobin 11.1, platelet count of 424. Serum sodium 129, potassium 4.1, CO2 of 17.3, creatinine of 0.6, glucose of 107. Temperature 98.1F, heart rate 97, blood pressure 93/60, no change with respect to persistent relative hypotension, respiratory rate 20 at 96% O2 saturation on room air. Cardiovascular: Regular rate and rhythm are regular. Respiratory: Lungs are clear to auscultation bilaterally. Abdominal exam: Loop transverse colostomy is in place, well-perfused, mild postoperative edema, no function yet. Mild diffuse tenderness palpation, no guarding or rebound, there is moderate distention with tympany. Extremities: Dysfunctional uterine well-perfused. Impression: 1) 81-year-old gentleman postoperative day 2 from laparoscopic diverting transverse loop colostomy, intraoperative flexible sigmoidoscopy and biopsy of obstructing rectosigmoid mass. Associated colovesicular fistula. Pronounced leukocytosis today of uncertain significance. No evidence of peritonitis on abdominal exam. 2) Severe protein calorie malnutrition. 3) Chronic systolic congestive heart failure. Moderate mitral regurgitation and aortic valve sclerosis. Underlying coronary artery disease. 4) COPD. 5) Reported history of cirrhosis. Plan: 1) Clear liquids as tolerated. Await ostomy function to advance diet further. Okay to resume Coumadin 48 hours postop. Uncertain as to significance of today's leukocytosis, may be reactive/postoperative in nature. Serial abdominal exam and daily labs. If interval clinical decline will need repeat imaging. Objective - Vital Signs Vital signs: Vital Signs Temp 98.1 F 11/14/21 04:40 Pulse 97 11/14/21 04:40 Resp 20 11/14/21 04:40 BP 93/60 11/14/21 04:40 Pulse Ox 96 11/14/21 04:40 Intake & Output 11/13/21 11/14/21 11/14/21 18:59 06:59 18:59 Intake Total 1100 1200 Output Total 700 200 Balance 400 1000 Intake: Intake, IV Titration 1100 1000 Amount Dextrose 5%-0.45% NaCl 1, 900 900 000 ml @ 75 mls/hr IV . [id number] [facility] Rx#:[id number] Piperacillin-Tazobactam 3 200 100 .375 gm In Sodium Chloride 0.9% 100 ml @ 25 mls/hr IVPB Q8HR [facility] Rx# :[id number] Oral 200 Output: Urine 700 200 Other: Voiding Method External Catheter External Catheter # Voids 400 - Labs CBC & Chem 7: 11/14/21 06:47 11/14/21 06:47 Labs: Abnormal Lab Results - Last 24 Hours (Table) 11/13/21 11/13/21 11/14/21 Range/Units 07:26 07:26 06:47 WBC 12.08 H 28.15 H (4.50-10.00) X 10*3/uL RBC 3.82 L 3.94 L (4.40-5.60) X 10*6/uL Hgb 10.7 L 11.1 L (13.0-17.0) g/dL Hct 34.7 L 34.0 L (39.6-50.0) % MCHC 30.8 L (32.0-37.0) g/dL RDW 15.3 H 15.2 H (11.5-14.5) % MPV 9.2 L (9.5-12.2) fL Immature Gran # 0.14 H 0.23 H (0.00-0.04) X 10*3/uL Neutrophils # 9.40 H 24.05 H (1.80-7.70) X 10*3/uL Monocytes # 1.40 H 2.63 H (0.20-1.00) X 10*3/uL Eosinophils # 0.01 L (0.04-0.35) X 10*3/uL Sodium 129 L (135-145) mmol/L Carbon Dioxide 15.7 L (20.0-27.5) mmol/L BUN 6.5 L (9.0-27.0) mg/dL BUN/Creatinine Ratio 10.57 L (12.00-20.00) Ratio Glucose 113 H (70-110) mg/dL Calcium 7.7 L (8.7-10.3) mg/dL 11/14/21 Range/Units 06:47 WBC (4.50-10.00) X 10*3/uL RBC (4.40-5.60) X 10*6/uL Hgb (13.0-17.0) g/dL Hct (39.6-50.0) % MCHC (32.0-37.0) g/dL RDW (11.5-14.5) % MPV (9.5-12.2) fL Immature Gran # (0.00-0.04) X 10*3/uL Neutrophils # (1.80-7.70) X 10*3/uL Monocytes # (0.20-1.00) X 10*3/uL Eosinophils # (0.04-0.35) X 10*3/uL Sodium 129 L (135-145) mmol/L Carbon Dioxide 17.3 L (20.0-27.5) mmol/L BUN 6.2 L (9.0-27.0) mg/dL BUN/Creatinine Ratio 10.33 L (12.00-20.00) Ratio Glucose (70-110) mg/dL Calcium 7.5 L (8.7-10.3) mg/dL
[2021-11-14] MEDS: DEXTROSE 5%-0.45% NACL 1,000 ML IV SCH (16:35)
--- NOTE | 2021-11-14 19:27 | P.PN ---
Subjective This is a very pleasant 81-year-old patient, who follows with Dr. Raymond Gimenez. Chronic stable medical conditions include CAD, CHF, right-sided talc pleurodesis, CHF EF of 25%, osteoarthritis, pacemaker. Patient now presents with intermittent abdominal pain. Has not had a bowel movement for quite a while. Sometimes has small pellet-like BMs sometimes loose stools. Denies any fever and chills. Appetite is just about okay. Has been losing weight. Patient and came to the floor was seen by the nurse to pass some stool through his penis. November 08: Patient is having significant stool output through his penis. Some abdominal discomfort. Spoke TO Dr. valladares from general surgery. Hold off any surgery for now. Continue IV antibiotics. I concern is about obstruction. Also spoke to Dr. grey from urology. Discussed with patient. Understanding the risk for surgery is okay to proceed to the same. Would like a second opinion so I spoke to Dr. Dale from general surgery. He will see the patient tomorrow. Continue clear liquid diet. This morning CODE STATUS discussed with the patient. Was to be a DO NOT RESUSCITATE November 09: Spoke to the patient. Keen to proceed. Surgery. Dr. Cavanaugh spoke to the patient. Then he discussed with Dr. valladares from surgery. This is made to proceed with diverting colostomy. This will be done by Dr. valladares. Patient remains a liquid diet. Some abdominal discomfort. November 10: In bed. I spoke to Dr. valladares earlier today. He'll be talking the patient and the daughter this afternoon. Continue liquid diet. Tentative plan for surgery this Monday. Antibiotics to continue. November 11: In bed. Awaiting surgery. No new issues. Some abdominal discomfort. Liquid diet. Surgery planned for tomorrow. 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 coli, patient is currently covered with Zosyn and gentle IV hydration. Also she was on Coumadin at home for her history of pulmonary embolism. Surgery team are on the case and the plan is for diverting loop colostomy for palliation. Also she got an enema today Neurology service already been contacted and evaluated the patient, possible patient needs tertiary care center 11/13/2021 Patient status post laparoscopic transverse colostomy and flexible sigmoidoscopy and biopsy of obstructive rectal mass with colovesical fistula in a Place. Biopsy still pending. Patient is on liquid diet started today, his colostomy bag still empty. But no vomiting, no abdominal pain. Has mild leukocytosis and mild hyponatremia We'll keep monitoring him. Biopsy still pending 11/14/2021 Patient status post laparoscopic transverse colostomy and flexible sigmoidoscopy and biopsy of obstructive rectal mass with colovesical fistula in a Place. His right lower abdominal colostomy back still empty with gas only this morning. He kept on liquid diet however he could resume 100% of his large today. No significant abdominal pain, no vomiting. Surgery team are following him closely as well. His labs today show leukocytosis of 28,000. Sodium is stable at 129. Blood pressure remains borderline while he is asymptomatic. It is expected to the view of his liver cirrhosis seen on liver ultrasound. Biopsy of the rectal mass is showing,Biopsy showing small bowel ulceration and lymphocytic infiltration suggestive of chronic inflammation with abundant granulation tissue associated with fibropurulent serositis compatible with perforation. Favoring chronic colitis. Colonic margins furthest from anastomosis benign nonviable. Please refer to the biopsy report for more details. We will await further recommendation by surgery team Objective - Vital Signs Vital signs: Vital Signs Temp 98.1 F 11/14/21 04:40 Pulse 97 11/14/21 04:40 Resp 20 11/14/21 04:40 BP 93/60 11/14/21 04:40 Pulse Ox 96 11/14/21 04:40 Intake & Output 11/13/21 11/14/21 11/14/21 18:59 06:59 18:59 Intake Total 1100 1200 Output Total 700 200 Balance 400 1000 Intake: Intake, IV Titration 1100 1000 Amount Dextrose 5%-0.45% NaCl 1, 900 900 000 ml @ 75 mls/hr IV . [id number] [facility] Rx#:[id number] Piperacillin-Tazobactam 3 200 100 .375 gm In Sodium Chloride 0.9% 100 ml @ 25 mls/hr IVPB Q8HR [facility] Rx# :[id number] Oral 200 Output: Urine 700 200 Other: Voiding Method External Catheter External Catheter # Voids 400 - Exam GENERAL: The patient is alert and oriented x3, not in any acute distress. Well developed, well nourished. HEENT: Pupils are round and equally reacting to light. EOMI. No scleral icterus. No conjunctival pallor. Normocephalic, atraumatic. No pharyngeal erythema. No thyromegaly. CARDIOVASCULAR: S1 and S2 present. No murmurs, rubs, or gallops. PULMONARY: Chest is clear to auscultation, no wheezing or crackles. -ABDOMEN: Soft, nontender, mildly distended, normoactive bowel sounds. No palpable organomegaly. Right lower quadrant colostomy MUSCULOSKELETAL: No joint swelling or deformity. EXTREMITIES: No cyanosis, clubbing, or pedal edema. NEUROLOGICAL: Gross neurological examination did not reveal any focal deficits. SKIN: No rashes. no petechiae. - Labs CBC & Chem 7: 11/14/21 06:47 11/14/21 06:47 Labs: Abnormal Lab Results - Last 24 Hours (Table) 11/13/21 11/13/21 11/14/21 Range/Units 07:26 07:26 06:47 WBC 12.08 H 28.15 H (4.50-10.00) X 10*3/uL RBC 3.82 L 3.94 L (4.40-5.60) X 10*6/uL Hgb 10.7 L 11.1 L (13.0-17.0) g/dL Hct 34.7 L 34.0 L (39.6-50.0) % MCHC 30.8 L (32.0-37.0) g/dL RDW 15.3 H 15.2 H (11.5-14.5) % MPV 9.2 L (9.5-12.2) fL Immature Gran # 0.14 H 0.23 H (0.00-0.04) X 10*3/uL Neutrophils # 9.40 H 24.05 H (1.80-7.70) X 10*3/uL Monocytes # 1.40 H 2.63 H (0.20-1.00) X 10*3/uL Eosinophils # 0.01 L (0.04-0.35) X 10*3/uL Sodium 129 L (135-145) mmol/L Carbon Dioxide 15.7 L (20.0-27.5) mmol/L BUN 6.5 L (9.0-27.0) mg/dL BUN/Creatinine Ratio 10.57 L (12.00-20.00) Ratio Glucose 113 H (70-110) mg/dL Calcium 7.7 L (8.7-10.3) mg/dL 11/14/21 Range/Units 06:47 WBC (4.50-10.00) X 10*3/uL RBC (4.40-5.60) X 10*6/uL Hgb (13.0-17.0) g/dL Hct (39.6-50.0) % MCHC (32.0-37.0) g/dL RDW (11.5-14.5) % MPV (9.5-12.2) fL Immature Gran # (0.00-0.04) X 10*3/uL Neutrophils # (1.80-7.70) X 10*3/uL Monocytes # (0.20-1.00) X 10*3/uL Eosinophils # (0.04-0.35) X 10*3/uL Sodium 129 L (135-145) mmol/L Carbon Dioxide 17.3 L (20.0-27.5) mmol/L BUN 6.2 L (9.0-27.0) mg/dL BUN/Creatinine Ratio 10.33 L (12.00-20.00) Ratio Glucose (70-110) mg/dL Calcium 7.5 L (8.7-10.3) mg/dL Assessment and Plan Assessment: -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 clear liquids. Surgery team on the case. -Severe protein calorie malnutrition: Slow to respond Currently the patient to remain on clear liquid diet. -Chronic medical debility -Chronic gait dysfunction, uses a walker Fall precautions -Chronic congestive heart failure from systolic dysfunction EF less than 20% Follow fluid status. Toprol-XL 25 mg a day -Moderate mitral regurgitation, moderate aortic valve sclerosis: Follow clinically -CAD Toprol-XL 25 mg a day -Choledocholithiasis, asymptomatic Follow clinically -Chronic pulmonary embolism Currently on Coumadin. Hold for now -COPD in a previous smoker DuoNeb as needed -Cirrhosis, cause unknown Currently hold off any further workup.
[2021-11-14] MEDS ORDERED: WARFARIN 1.25 MG TAB PO SCH (19:35)
[2021-11-14] MEDS: DEXTROSE 5%-0.9% NACL 1,000 ML IV SCH (21:10)
[2021-11-14] MEDS ORDERED: SODIUM CHLORIDE 0.9% 500 ML 500 ML IV ONE (22:20)
[2021-11-15] MEDS: PIPERACILLIN-TAZOBACTAM 3.375 GM in SODIUM CHLORIDE 0.9% 100 ML IVPB SCH ×2 (09:24→16:03)
[2021-11-15] MEDS: DOCUSATE 100 MG CAP PO SCH ×2 (09:24→20:09)
[2021-11-15] MEDS: METOPROLOL SUCCINATE (ER) 25 MG TAB.ER.24H PO SCH (09:24)
[2021-11-15] MEDS: ENOXAPARIN 40 MG/0.4 ML SYRINGE SQ SCH (09:24)
[2021-11-15] MEDS: FAMOTIDINE 20 MG/2 ML VIAL IV SCH ×2 (09:25→20:09)
[2021-11-15] MEDS: bisacodyL 10 MG SUPP RECTAL SCH (09:27)
[2021-11-15 10:15] LABS: Basophils # (A) 0.06 X 10*3/uL (0.00-0.10); Basophils % (A) 0.2 %; Eosinophils # (A) 0.05 X 10*3/uL (0.04-0.35); Eosinophils % (A) 0.2 %; HCT 30.7 % (39.6-50.0); HGB 10.1 g/dL (13.0-17.0); Immature Grans, Automated 0.7 %; Lymphocytes % (A) 4.2 %; MCH 28.5 pg (27.0-32.0); MCHC 32.9 g/dL (32.0-37.0); MCV 86.7 fL (80.0-97.0); Mean Platelet Volume 9.1 fL (9.5-12.2); Monocytes # (A) 2.19 X 10*3/uL (0.20-1.00); Monocytes % (A) 8.3 %; NRBC Per 100 WBC 0 /100 WBCS (0.0-0.0); Neutrophils # (A) 22.69 X 10*3/uL (1.80-7.70); Neutrophils % (A) 86.4 %; Platelet Count 342 X 10*3/uL (140-440); RBC 3.54 X 10*6/uL (4.40-5.60); RDW 15.1 % (11.5-14.5); WBC 26.28 X 10*3/uL (4.50-10.00)
[2021-11-15 10:26] LABS: African American GFR (CKD) 110.1 (60.0-200.0); Anion Gap 8.5 mmol/L (10.00-18.00); Blood Urea Nitrogen 7.8 mg/dL (9.0-27.0); Calcium 7.3 mg/dL (8.7-10.3); Carbon Dioxide 18.5 mmol/L (20.0-27.5); Potassium 3.6 mmol/L (3.5-5.5)
[2021-11-15 11:03] LABS: INR 4.28 (0.90-1.11); Prothrombin Time 43.9 sec (9.9-11.9)
[2021-11-15] MEDS: DEXTROSE 5%-0.9% NACL 1,000 ML IV SCH (11:04)
[2021-11-15] MEDS ORDERED: WARFARIN 0.5 MG TAB PO ONE (18:00)
--- NOTE | 2021-11-15 21:21 | P.PN ---
Progress Note - Text Progress Note Date: 11/15/21 Chief Complaint: Abdominal pain This is a very pleasant 81-year-old patient, who follows with Dr. Raymond Gimenez. Chronic stable medical conditions include CAD, CHF, right-sided talc pleurodesis, CHF EF of 25%, osteoarthritis, pacemaker. Patient now presents with intermittent abdominal pain. Has not had a bowel movement for quite a while. Sometimes has small pellet-like BMs sometimes loose stools. Denies any fever and chills. Appetite is just about okay. Has been losing weight. Patient and came to the floor was seen by the nurse to pass some stool through his penis. November 08: Patient is having significant stool output through his penis. Some abdominal discomfort. Spoke TO Dr. valladares from general surgery. Hold off any surgery for now. Continue IV antibiotics. I concern is about obstruction. Also spoke to Dr. grey from urology. Discussed with patient. Understanding the risk for surgery is okay to proceed to the same. Would like a second opinion so I spoke to Dr. Dale from general surgery. He will see the patient tomorrow. Continue clear liquid diet. This morning CODE STATUS discussed with the patient. Was to be a DO NOT RESUSCITATE November 09: Spoke to the patient. Keen to proceed. Surgery. Dr. Cavanaugh spoke to the patient. Then he discussed with Dr. valladares from surgery. This is made to proceed with diverting colostomy. This will be done by Dr. valladares. Patient remains a liquid diet. Some abdominal discomfort. November 10: In bed. I spoke to Dr. valladares earlier today. He'll be talking the patient and the daughter this afternoon. Continue liquid diet. Tentative plan for surgery this Monday. Antibiotics to continue. November 11: In bed. Awaiting surgery. No new issues. Some abdominal discomfort. Liquid diet. Surgery planned for tomorrow. On November 12, laparoscopic assisted loop transverse colostomy done. Flexible sigmoidoscopy and a core biopsy of the rectal mass and 12 cm from anal verge was done. November 15: Laying in bed. Tired. Clear liquid diet. at the bedside. Little output through the colostomy bag. Review of systems: Was done for constitutional, cardiovascular, GI, pulmonary. relevant finding as above Active Medications Acetaminophen (Acetaminophen Tab 325 Mg Tab) 650 mg PO Q6HR PRN PRN Reason: Mild Pain or Fever > 100.5 Last Admin: 11/12/21 22:24 Dose: 650 mg Documented by: Bisacodyl (Bisacodyl 10 Mg Supp) 10 mg RECTAL DAILY [facility] Last Admin: 11/15/21 09:27 Dose: Not Given Documented by: Docusate Sodium (Docusate 100 Mg Cap) 100 mg PO BID [facility] Last Admin: 11/15/21 20:09 Dose: 100 mg Documented by: Enoxaparin Sodium (Enoxaparin 40 Mg/0.4 Ml Syringe) 40 mg SQ DAILY [facility] Last Admin: 11/15/21 09:24 Dose: 40 mg Documented by: Famotidine (Famotidine 20 Mg/2 Ml Vial) 20 mg IV Q12HR [facility] Last Admin: 11/15/21 20:09 Dose: 20 mg Documented by: Piperacillin Sod/Tazobactam (Sod 3.375 gm/ Sodium Chloride) 100 mls @ 25 mls/hr IVPB Q8HR [facility] Last Admin: 11/15/21 16:03 Dose: 25 mls/hr Documented by: Dextrose/Sodium Chloride (Dextrose 5%-Ns Iv Soln) 1,000 mls @ 75 mls/hr IV .[id number] [facility] Last Admin: 11/15/21 11:04 Dose: Not Given Documented by: Metoprolol Succinate (Metoprolol Succinate (Er) 25 Mg Tab.Er.24h) 25 mg PO JUDI LY [facility] Last Admin: 11/15/21 09:24 Dose: Not Given Documented by: Miscellaneous Information (Warfarin Per Pharmacy) 1 each MISCELLANE DIRECTED PRN PRN Reason: Per Protocol Morphine Sulfate (Morphine Sulfate 4 Mg/Ml Syringe) 4 mg IV Q4HR PRN PRN Reason: Severe Pain Naloxone HCl (Naloxone 0.4 Mg/Ml 1 Ml Vial) 0.2 mg IV Q2M PRN PRN Reason: Opioid Reversal Ondansetron HCl (Ondansetron 4 Mg/2 Ml Vial) 4 mg IVP Q8HR PRN PRN Reason: Nausea And Vomiting Last Admin: 11/10/21 08:20 Dose: 4 mg Documented by: Past medical history to include: CAD, CHF EF 20%, hard of hearing, will be embolic, right pleural effusion with thoracentesis, and talc pleurodesis, 9096 pulmonary embolism, arthritis, pacemaker/AICD Social history: Lives with his . Has a walker. He smoked for many years. Was drinking 6-8 beers a day up to about 2 years ago. Family history: Reviewed, noncontributory to presentation Physical examination: VITAL SIGNS: 97.6, 99, 15, 91/60, 99% room air GENERAL: reclining in bed, awake tired. [ Loss of muscle mass and loss of subcutaneous fat.] EYES: Pupils equal. Conjunctiva normal. HEENT: External appearance of nose and ears normal, oral cavity grossly normal hard of hearing. NECK: JVD not raised; masses not palpable. HEART: First and second heart sounds are normal; no edema. LUNGS: Respiratory rate normal; decreased breath sounds. ABDOMEN: Soft, colostomy bag with no stool, liver spleen not palpable, no masses palpable. PSYCH: Answering questions appropriately. Mood affect normal. INVESTIGATIONS, reviewed in the clinical context: November 12: White count 26.2 hemoglobin 10.1 INR 4.2 sodium 1:30 potassium 3.6 creatinine 0.6 November 11: Potassium 3.6 BUN 4.3 creatinine 0.5 Urine culture: E. coli November 09: White count 9 hemoglobin 10.4 platelets 268 potassium 3.4 creatinine 0.61 albumin 1.8 Liver ultrasound: Lobulated contour respectively left lobe, right lobe small in size,. Distended gallbladder with multiple gallstones and sludge. Confirmation of cirrhotic liver. White count 14.6 hemoglobin 12.6 platelets 353 sodium 131 potassium 3.8 BUN 25 crit 0.58 Lactic acid 2.5 total bilirubin 1.6 albumin 2.5 UA positive for leukoesterase WBC Coronavirus [PCR]: Not detected EKG tracing personally reviewed by me-left bundle-branch block. T-wave changes. Computed tomography scan abdomen and pelvis without contrast: Heart is enlarged. Calcified pleural plaque at the right base. Numerous calcified gallstones. Moderate vascular calcification. Long-standing with no wall thickening of the distal sigmoid colon. Dilated large bowel with retained fecal material even fluid levels. No free air. L1 anterior wedging 25% T11 osteosclerotic focus measuring 1.5 cm. Possible cirrhosis. 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 Minimal output. Clear liquid diet -Sigmoid colon mass Biopsy results pending -Severe protein calorie malnutrition: Slow to respond Currently the patient to remain on clear liquid diet. -Chronic medical debility -Chronic gait dysfunction, uses a walker Fall precautions -Chronic congestive heart failure from systolic dysfunction EF less than 20% Follow fluid status. Toprol-XL 25 mg a day -Moderate mitral regurgitation, moderate aortic valve sclerosis: Follow clinically -CAD Toprol-XL 25 mg a day -Choledocholithiasis, asymptomatic Follow clinically -Chronic pulmonary embolism Currently on Coumadin. Hold for now -COPD in a previous smoker DuoNeb as needed -Cirrhosis, cause unknown Currently hold off any further workup. Clear liquids. Out of bed as tolerated. Discussed with at the bedside. Diet to be advanced per surgery. Prognosis guarded.
[2021-11-16] MEDS: DEXTROSE 5%-0.9% NACL 1,000 ML IV SCH ×3 (00:36→18:04)
[2021-11-16] MEDS: PIPERACILLIN-TAZOBACTAM 3.375 GM in SODIUM CHLORIDE 0.9% 100 ML IVPB SCH ×4 (00:36→23:45)
[2021-11-16 06:47] LABS: Prothrombin Time 53.1 sec (9.0-12.0)
[2021-11-16 06:51] LABS: INR 5.3 (<1.2)
[2021-11-16] MEDS: DOCUSATE 100 MG CAP PO SCH ×2 (07:55→20:41)
[2021-11-16] MEDS: FAMOTIDINE 20 MG/2 ML VIAL IV SCH ×2 (07:56→20:41)
[2021-11-16] MEDS: bisacodyL 10 MG SUPP RECTAL SCH (09:41)
[2021-11-16] MEDS: METOPROLOL SUCCINATE (ER) 25 MG TAB.ER.24H PO SCH (09:42)
[2021-11-16 10:50] LABS: Basophils # (A) 0.1 k/uL (0-0.2); Basophils % (A) 0 %; Eosinophils # (A) 0.1 k/uL (0-0.7); Eosinophils % (A) 0 %; HCT 34.1 % (39.0-53.0); HGB 10.9 gm/dL (13.0-17.5); Hypochromasia Slight; Lymphocytes # (A) 1.2 k/uL (1.0-4.8); Lymphocytes % (A) 4 %; MCH 29.6 pg (25.0-35.0); MCHC 32.1 g/dL (31.0-37.0); Mean Platelet Volume 8.4; Monocytes # (A) 1.4 k/uL (0-1.0); Monocytes % (A) 5 %; Neutrophils # (A) 24.7 k/uL (1.3-7.7); Neutrophils % (A) 89 %; Platelet Count 427 k/uL (150-450); RDW 14.6 % (11.5-15.5); WBC 27.8 k/uL (3.8-10.6)
[2021-11-16 11:07] LABS: African American GFR (CKD) >90 (>60 ml/min/1.73 sqM); Anion Gap 8 mmol/L; Blood Urea Nitrogen 9 mg/dL (9-20); Calcium 7.3 mg/dL (8.4-10.2); Carbon Dioxide 15 mmol/L (22-30); Chloride 106 mmol/L (98-107); Glucose 103 mg/dL (74-99); Non-African American GFR(CKD) >90 (>60 ml/min/1.73 sqM); Sodium 129 mmol/L (137-145)
[2021-11-16] MEDS ORDERED: POTASSIUM CHLORIDE ER 20 MEQ TAB.ER PO STA (11:56)
[2021-11-16] MEDS ORDERED: PHYTONADIONE ORAL 5 MG/5 ML ORAL.SYRG PO STA (13:10)
--- NOTE | 2021-11-16 14:06 | P.PN ---
Subjective Progress Note Date: 11/16/21 Ostomy pink and patent with gas in bag. No solid stool. Patient denies abdominal pain at this time. Objective - Vital Signs Vital signs: Vital Signs Temp 98 F 11/16/21 12:01 Pulse 73 11/16/21 12:01 Resp 18 11/16/21 12:01 BP 92/52 11/16/21 12:01 Pulse Ox 94 L 11/16/21 08:31 Intake & Output 11/15/21 11/16/21 11/16/21 18:59 06:59 18:59 Intake Total 1580 1100 Output Total 1 Balance 1580 1099 Weight 45.359 kg Intake: Intake, IV Titration 1100 1100 Amount Dextrose 5%-0.9% NaCl 1, 900 900 000 ml @ 75 mls/hr IV . [id number] COUNTS INCLUDE 234 BEDS AT THE [facility] Rx#:[id number] Piperacillin-Tazobactam 3 200 200 .375 gm In Sodium Chloride 0.9% 100 ml @ 25 mls/hr IVPB Q8HR [facility] Rx# :[id number] Oral 480 Output: Stool 1 Other: Voiding Method External Catheter External Catheter External Catheter - Constitutional General appearance: Present: cooperative, thin - Cardiovascular Rhythm: regular - Gastrointestinal Gastrointestinal Comment(s): S/NT Ostomy is pink and patent. - Psychiatric Psychiatric: Present: A&O x's 3 - Labs CBC & Chem 7: 11/16/21 05:43 11/16/21 05:43 Labs: Abnormal Lab Results - Last 24 Hours (Table) 11/16/21 11/16/21 11/16/21 Range/Units 05:43 05:43 05:43 WBC 27.8 H (3.8-10.6) k/uL RBC 3.70 L (4.30-5.90) m/uL Hgb 10.9 L (13.0-17.5) gm/dL Hct 34.1 L (39.0-53.0) % Neutrophils # 24.7 H (1.3-7.7) k/uL Monocytes # 1.4 H (0-1.0) k/uL PT 53.1 H (9.0-12.0) sec INR 5.3 H* (<1.2) Sodium 129 L (137-145) mmol/L Potassium 3.0 L (3.5-5.1) mmol/L Carbon Dioxide 15 L (22-30) mmol/L Creatinine 0.64 L (0.66-1.25) mg/dL Glucose 103 H (74-99) mg/dL Calcium 7.3 L (8.4-10.2) mg/dL Assessment and Plan Assessment: 81-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 S/P loop transverse colostomy Plan: Patient does not yet have any stool out of ostomy, he is passing flatus. No abdo hiwot pain or peritonitis at this time. He does have a significant leukocytosis but no obvious intrabdominal source at this time. Possibly secondary to existing colovesicular fistula and UTI. He is on IV ABX
--- NOTE | 2021-11-16 18:02 | P.PN ---
Progress Note - Text Progress Note Date: 11/16/21 Chief Complaint: Abdominal pain This is a very pleasant 81-year-old patient, who follows with Dr. Raymond Gimenez. Chronic stable medical conditions include CAD, CHF, right-sided talc pleurodesis, CHF EF of 25%, osteoarthritis, pacemaker. Patient now presents with intermittent abdominal pain. Has not had a bowel movement for quite a while. Sometimes has small pellet-like BMs sometimes loose stools. Denies any fever and chills. Appetite is just about okay. Has been losing weight. Patient and came to the floor was seen by the nurse to pass some stool through his penis. November 08: Patient is having significant stool output through his penis. Some abdominal discomfort. Spoke TO Dr. valladares from general surgery. Hold off any surgery for now. Continue IV antibiotics. I concern is about obstruction. Also spoke to Dr. grey from urology. Discussed with patient. Understanding the risk for surgery is okay to proceed to the same. Would like a second opinion so I spoke to Dr. Dale from general surgery. He will see the patient tomorrow. Continue clear liquid diet. This morning CODE STATUS discussed with the patient. Was to be a DO NOT RESUSCITATE November 09: Spoke to the patient. Keen to proceed. Surgery. Dr. Cavanaugh spoke to the patient. Then he discussed with Dr. valladares from surgery. This is made to proceed with diverting colostomy. This will be done by Dr. valladares. Patient remains a liquid diet. Some abdominal discomfort. November 10: In bed. I spoke to Dr. valladares earlier today. He'll be talking the patient and the daughter this afternoon. Continue liquid diet. Tentative plan for surgery this Monday. Antibiotics to continue. November 11: In bed. Awaiting surgery. No new issues. Some abdominal discomfort. Liquid diet. Surgery planned for tomorrow. On November 12, laparoscopic assisted loop transverse colostomy done. Flexible sigmoidoscopy and a core biopsy of the rectal mass and 12 cm from anal verge was done. November 15: Laying in bed. Tired. Clear liquid diet. at the bedside. Little output through the colostomy bag. November 16: In bed. Tired. Remains on clear liquid diet. Some liquid output to the colostomy bag. Passed flatus. at the bedside. Had a lengthy discussion with Dr. valladares. Oral prognosis guarded. Elevated white count likely reactive from malignancy and procedure. Patient has no abdominal pain. INR 5.3. Vitamin K 2.5 mg by mouth given. Review of systems: Was done for constitutional, cardiovascular, GI, pulmonary. relevant finding as above Active Medications Acetaminophen (Acetaminophen Tab 325 Mg Tab) 650 mg PO Q6HR PRN PRN Reason: Mild Pain or Fever > 100.5 Last Admin: 11/12/21 22:24 Dose: 650 mg Documented by: Bisacodyl (Bisacodyl 10 Mg Supp) 10 mg RECTAL DAILY [facility] [place] Last Admin: 11/16/21 09:41 Dose: Not Given Documented by: Docusate Sodium (Docusate 100 Mg Cap) 100 mg PO BID [facility] [place] Last Admin: 11/16/21 07:55 Dose: 100 mg Documented by: Famotidine (Famotidine 20 Mg/2 Ml Vial) 20 mg IV Q12HR [facility] [place] Last Admin: 11/16/21 07:56 Dose: 20 mg Documented by: Piperacillin Sod/Tazobactam (Sod 3.375 gm/ Sodium Chloride) 100 mls @ 25 mls/hr IVPB Q8HR [facility] [place] Last Admin: 11/16/21 15:54 Dose: 25 mls/hr Documented by: Dextrose/Sodium Chloride (Dextrose 5%-Ns Iv Soln) 1,000 mls @ 75 mls/hr IV .[id number] [facility] [place] Last Admin: 11/16/21 12:16 Dose: 75 mls/hr Documented by: Metoprolol Succinate (Metoprolol Succinate (Er) 25 Mg Tab.Er.24h) 25 mg PO DAILY [facility] [place] Last Admin: 11/16/21 09:42 Dose: Not Given Documented by: Naloxone HCl (Naloxone 0.4 Mg/Ml 1 Ml Vial) 0.2 mg IV Q2M PRN PRN Reason: Opioid Reversal Ondansetron HCl (Ondansetron 4 Mg/2 Ml Vial) 4 mg IVP Q8HR PRN PRN Reason: Nausea And Vomiting Last Admin: 11/10/21 08:20 Dose: 4 mg Documented by: Past medical history to include: CAD, CHF EF 20%, hard of hearing, will be embolic, right pleural effusion with thoracentesis, and talc pleurodesis, 9096 pulmonary embolism, arthritis, pacemaker/AICD Social history: Lives with his . Has a walker. He smoked for many years. Was drinking 6-8 beers a day up to about 2 years ago. Family history: Reviewed, noncontributory to presentation Physical examination: VITAL SIGNS:, 73, 18, 92/52, 94% room air GENERAL: reclining in bed, awake tired. [ Loss of muscle mass and loss of subcutaneous fat.] EYES: Pupils equal. Conjunctiva normal. HEENT: External appearance of nose and ears normal, oral cavity grossly normal hard of hearing. NECK: JVD not raised; masses not palpable. HEART: First and second heart sounds are normal; no edema. LUNGS: Respiratory rate normal; decreased breath sounds. ABDOMEN: Soft, colostomy bag with gas and a large liquid, liver spleen not palpable, no masses palpable. PSYCH: Answering questions appropriately. Mood affect normal. INVESTIGATIONS, reviewed in the clinical context: November 16: White count 27.8 hemoglobin 10.9 INR 5.3 sodium 129 potassium 3 creatinine 0.64 November 12: White count 26.2 hemoglobin 10.1 INR 4.2 sodium 1:30 potassium 3.6 creatinine 0.6 November 11: Potassium 3.6 BUN 4.3 creatinine 0.5 Urine culture: E. coli November 09: White count 9 hemoglobin 10.4 platelets 268 potassium 3.4 creatinine 0.61 albumin 1.8 Liver ultrasound: Lobulated contour respectively left lobe, right lobe small in size,. Distended gallbladder with multiple gallstones and sludge. Confirmation of cirrhotic liver. White count 14.6 hemoglobin 12.6 platelets 353 sodium 131 potassium 3.8 BUN 25 crit 0.58 Lactic acid 2.5 total bilirubin 1.6 albumin 2.5 UA positive for leukoesterase WBC Coronavirus [PCR]: Not detected EKG tracing personally reviewed by me-left bundle-branch block. T-wave changes. Computed tomography scan abdomen and pelvis without contrast: Heart is enlarged. Calcified pleural plaque at the right base. Numerous calcified gallstones. Moderate vascular calcification. Long-standing with no wall thickening of the distal sigmoid colon. Dilated large bowel with retained fecal material even fluid levels. No free air. L1 anterior wedging 25% T11 osteosclerotic focus measuring 1.5 cm. Possible cirrhosis. 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 Minimal output. Clear liquid diet -Sigmoid colon mass Biopsy results pending -Severe protein calorie malnutrition: Slow to respond Currently the patient to remain on clear liquid diet. -Chronic medical debility -Chronic gait dysfunction, uses a walker Fall precautions -Chronic congestive heart failure from systolic dysfunction EF less than 20% Follow fluid status. Toprol-XL 25 mg a day -Moderate mitral regurgitation, moderate aortic valve sclerosis: Follow clinically -CAD Toprol-XL 25 mg a day -Choledocholithiasis, asymptomatic Follow clinically -Hyponatremia from decreased solute intake Follow labs -Chronic pulmonary embolism Currently on Coumadin. -Coumadin toxicity Hold Coumadin. White admin gait 2.5 mg. -COPD in a previous smoker DuoNeb as needed -Leukocytosis likely reactive from underlying malignancy and surgery. Tumor itself could have necrosis causing the same. Follow clinically. -Cirrhosis, cause unknown Currently hold off any further workup. Clear liquids. Out of bed as tolerated. Discussed with at the bedside. Discussed with Dr. valladares. At some point hospice may be appropriate. We'll discuss with the patient and . Coumadin toxicity. Vitamin K 2.5 mg. No bleeding.
[2021-11-17 03:12] VITALS: RESP 16
[2021-11-17] MEDS: PIPERACILLIN-TAZOBACTAM 3.375 GM in SODIUM CHLORIDE 0.9% 100 ML IVPB SCH ×2 (07:55→15:50)
[2021-11-17] MEDS: DOCUSATE 100 MG CAP PO SCH (07:56)
[2021-11-17] MEDS: FAMOTIDINE 20 MG/2 ML VIAL IV SCH (07:56)
[2021-11-17] MEDS: DEXTROSE 5%-0.9% NACL 1,000 ML IV SCH (07:57)
[2021-11-17] MEDS: METOPROLOL SUCCINATE (ER) 25 MG TAB.ER.24H PO SCH (07:59)
[2021-11-17] MEDS: bisacodyL 10 MG SUPP RECTAL SCH (10:43)
[2021-11-17 12:08] LABS: African American GFR (CKD) >90 (>60 ml/min/1.73 sqM); Anion Gap 7 mmol/L; Blood Urea Nitrogen 8 mg/dL (9-20); Calcium 7.5 mg/dL (8.4-10.2); Carbon Dioxide 14 mmol/L (22-30); Chloride 108 mmol/L (98-107); Glucose 151 mg/dL (74-99); Non-African American GFR(CKD) >90 (>60 ml/min/1.73 sqM); Potassium 3.1 mmol/L (3.5-5.1); Sodium 129 mmol/L (137-145)
--- NOTE | 2021-11-17 12:15 | P.PN ---
Subjective Progress Note Date: 11/17/21 Ostomy pink and patent with gas and formed stool in bag. Patient denies abdominal pain at this time. Objective - Vital Signs Vital signs: Vital Signs Temp 98.0 F 11/17/21 03:42 Pulse 116 H 11/17/21 07:32 Resp 16 11/17/21 03:42 BP 96/63 11/17/21 07:32 Pulse Ox 96 11/17/21 03:42 Intake & Output 11/16/21 11/17/21 11/17/21 18:59 06:59 18:59 Intake Total 1000 1000 Balance 1000 1000 Intake: Intake, IV Titration 1000 1000 Amount Dextrose 5%-0.9% NaCl 1, 900 900 000 ml @ 75 mls/hr IV . [id number] [facility] Rx#:[id number] Piperacillin-Tazobactam 3 100 100 .375 gm In Sodium Chloride 0.9% 100 ml @ 25 mls/hr IVPB Q8HR [facility] Rx# :[id number] Other: Voiding Method External Catheter External Catheter External Catheter - Constitutional General appearance: Present: cooperative - Cardiovascular Rhythm: regular - Gastrointestinal Gastrointestinal Comment(s): S/NT/mild distention. 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 S/P loop transverse colostomy Plan: Ostomy is functioning today with formed stool and gas in bag. Advance diet to full liquids as tolerated then soft foods. Considering patients overall health and commodities patients prognosis is poor.
[2021-11-17 12:39] LABS: HGB 11.7 gm/dL (13.0-17.5); Hypochromasia Slight; MCH 29.6 pg (25.0-35.0); MCHC 31.7 g/dL (31.0-37.0); MCV 93.3 fL (80.0-100.0); Mean Platelet Volume 7.7; Platelet Count 449 k/uL (150-450); RBC 3.97 m/uL (4.30-5.90); RDW 14.2 % (11.5-15.5); WBC 36.7 k/uL (3.8-10.6)
[2021-11-17 14:07] LABS: Band Neutrophils % 6 %; Lymphocytes # (M) 0.73 k/uL (1.0-4.8); Monocytes # (M) 1.84 k/uL (0-1.0); Neutrophils % (M) 88 %; Nucleated Red Blood Cells 0 /100 WBC (0-0); Total Cells Counted 200
[2021-11-17 14:08] LABS: Anisocytosis (M) Present; Poikilocytosis (M) Present
[2021-11-17] MEDS: DEXTROSE 5% IN WATER 1,000 ML with SODIUM BICARB (1 MEQ/ML) 100 ML IV SCH (15:51)
[2021-11-17] MEDS: PSYLLIUM HUSK 100% 6 GM PACKET PO SCH ×2 (15:52→21:55)
[2021-11-17] MEDS: POTASSIUM CHLORIDE ER 20 MEQ TAB.ER PO SCH ×2 (15:52→17:03)
--- NOTE | 2021-11-17 21:01 | P.PN ---
Progress Note - Text Progress Note Date: 11/17/21 Chief Complaint: Abdominal pain This is a very pleasant 81-year-old patient, who follows with Dr. Raymond Gimenez. Chronic stable medical conditions include CAD, CHF, right-sided talc pleurodesis, CHF EF of 25%, osteoarthritis, pacemaker. Patient now presents with intermittent abdominal pain. Has not had a bowel movement for quite a while. Sometimes has small pellet-like BMs sometimes loose stools. Denies any fever and chills. Appetite is just about okay. Has been losing weight. Patient and came to the floor was seen by the nurse to pass some stool through his penis. November 08: Patient is having significant stool output through his penis. Some abdominal discomfort. Spoke TO Dr. valladares from general surgery. Hold off any surgery for now. Continue IV antibiotics. I concern is about obstruction. Also spoke to Dr. grey from urology. Discussed with patient. Understanding the risk for surgery is okay to proceed to the same. Would like a second opinion so I spoke to Dr. Dale from general surgery. He will see the patient tomorrow. Continue clear liquid diet. This morning CODE STATUS discussed with the patient. Was to be a DO NOT RESUSCITATE November 09: Spoke to the patient. Keen to proceed. Surgery. Dr. Cavanaugh spoke to the patient. Then he discussed with Dr. valladares from surgery. This is made to proceed with diverting colostomy. This will be done by Dr. valladares. Patient remains a liquid diet. Some abdominal discomfort. November 10: In bed. I spoke to Dr. valladares earlier today. He'll be talking the patient and the daughter this afternoon. Continue liquid diet. Tentative plan for surgery this Monday. Antibiotics to continue. November 11: In bed. Awaiting surgery. No new issues. Some abdominal discomfort. Liquid diet. Surgery planned for tomorrow. On November 12, laparoscopic assisted loop transverse colostomy done. Flexible sigmoidoscopy and a core biopsy of the rectal mass and 12 cm from anal verge was done. November 15: Laying in bed. Tired. Clear liquid diet. at the bedside. Little output through the colostomy bag. November 16: In bed. Tired. Remains on clear liquid diet. Some liquid output to the colostomy bag. Passed flatus. at the bedside. Had a lengthy discussion with Dr. valladares. Oral prognosis guarded. Elevated white count likely reactive from malignancy and procedure. Patient has no abdominal pain. INR 5.3. Vitamin K 2.5 mg by mouth given. November 17: In bed. Tired. Advance to full liquid. Some stool in the bag. Flatus present. Did discuss with the patient's overall guarded prognosis. Patient not a candidate for any treatment for his tumor. His also discussed abo ct hospice down the road. He understands. No abdominal pain. Review of systems: Was done for constitutional, cardiovascular, GI, pulmonary. relevant finding as above Active Medications Acetaminophen (Acetaminophen Tab 325 Mg Tab) 650 mg PO Q6HR PRN PRN Reason: Mild Pain or Fever > 100.5 Last Admin: 11/12/21 22:24 Dose: 650 mg Documented by: Famotidine (Famotidine 20 Mg Tab) 20 mg PO BID [facility] Piperacillin Sod/Tazobactam (Sod 3.375 gm/ Sodium Chloride) 100 mls @ 25 mls/hr IVPB Q8HR [facility] Last Admin: 11/17/21 15:50 Dose: 25 mls/hr Documented by: Sodium Bicarbonate 100 ml/ (Dextrose/Water) 1,100 mls @ 100 mls/hr IV .Q11H [facility] Last Admin: 11/17/21 15:51 Dose: 100 mls/hr Documented by: Metoprolol Succinate (Metoprolol Succinate (Er) 25 Mg Tab.Er.24h) 25 mg PO DAILY [facility] Last Admin: 11/17/21 07:59 Dose: 25 mg Documented by: Naloxone HCl (Naloxone 0.4 Mg/Ml 1 Ml Vial) 0.2 mg IV Q2M PRN PRN Reason: Opioid Reversal Ondansetron HCl (Ondansetron 4 Mg/2 Ml Vial) 4 mg IVP Q8HR PRN PRN Reason: Nausea And Vomiting Last Admin: 11/10/21 08:20 Dose: 4 mg Documented by: Psyllium Hydrophilic Mucilloid (Psyllium Husk 100% 6 Gm Packet) 6 gm PO BID [facility] Last Admin: 11/17/21 15:52 Dose: 6 gm Documented by: Past medical history to include: CAD, CHF EF 20%, hard of hearing, will be embolic, right pleural effusion with thoracentesis, and talc pleurodesis, 9096 pulmonary embolism, arthritis, pacemaker/AICD Social history: Lives with his . Has a walker. He smoked for many years. Was drinking 6-8 beers a day up to about 2 years ago. Family history: Reviewed, noncontributory to presentation Physical examination: VITAL SIGNS:, 97.9, 101, 16, 94/57, 97% room air GENERAL: reclining in bed, awake tired. [ Loss of muscle mass and loss of subcutaneous fat.] EYES: Pupils equal. Conjunctiva normal. HEENT: External appearance of nose and ears normal, oral cavity grossly normal hard of hearing. NECK: JVD not raised; masses not palpable. HEART: First and second heart sounds are normal; no edema. LUNGS: Respiratory rate normal; decreased breath sounds. ABDOMEN: Soft, colostomy bag with gas and some stool, liver spleen not pal pable, no masses palpable. PSYCH: Answering questions appropriately. Mood affect normal. INVESTIGATIONS, reviewed in the clinical context: November 17: White count 36.7 hemoglobin 11.7 sodium 129 potassium 3.1 white count 14 November 16: White count 27.8 hemoglobin 10.9 INR 5.3 sodium 129 potassium 3 creatinine 0.64 November 12: White count 26.2 hemoglobin 10.1 INR 4.2 sodium 1:30 potassium 3.6 creatinine 0.6 November 11: Potassium 3.6 BUN 4.3 creatinine 0.5 Urine culture: E. coli November 09: White count 9 hemoglobin 10.4 platelets 268 potassium 3.4 creatinine 0.61 albumin 1.8 Liver ultrasound: Lobulated contour respectively left lobe, right lobe small in size,. Distended gallbladder with multiple gallstones and sludge. Confirmation of cirrhotic liver. White count 14.6 hemoglobin 12.6 platelets 353 sodium 131 potassium 3.8 BUN 25 crit 0.58 Lactic acid 2.5 total bilirubin 1.6 albumin 2.5 UA positive for leukoesterase WBC Coronavirus [PCR]: Not detected EKG tracing personally reviewed by me-left bundle-branch block. T-wave changes. Computed tomography scan abdomen and pelvis without contrast: Heart is enlarged. Calcified pleural plaque at the right base. Numerous calcified gallstones. Moderate vascular calcification. Long-standing with no wall thickening of the distal sigmoid colon. Dilated large bowel with retained fecal material even fluid levels. No free air. L1 anterior wedging 25% T11 osteosclerotic focus measuring 1.5 cm. Possible cirrhosis. 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 Minimal output. Clear liquid diet -Sigmoid colon mass Biopsy results pending -Severe protein calorie malnutrition: Slow to respond Increase diet -Chronic medical debility -Chronic gait dysfunction, uses a walker Fall precautions -Chronic congestive heart failure from systolic dysfunction EF less than 20% Follow fluid status. Toprol-XL 25 mg a day -Moderate mitral regurgitation, moderate aortic valve sclerosis: Follow clinically -CAD Toprol-XL 25 mg a day -Choledocholithiasis, asymptomatic Follow clinically -Hyponatremia from decreased solute intake Follow labs -Chronic pulmonary embolism Currently on Coumadin. -Coumadin toxicity Vitamin K 2.5 mg. -Metabolic acidosis *Bicarbonate drip -COPD in a previous smoker DuoNeb as needed -Leukocytosis likely reactive from underlying malignancy and surgery. Tumor itself could have necrosis causing the same. Follow clinically. -Cirrhosis, cause unknown Currently hold off any further workup. Patient advanced to full liquids by surgery. Passing some stool. Continue current treatment plan. Start bicarbonate drip for metabolic acidosis. Prognosis poor Advanced care planning: Patient's overall poor functional status with malnutrition, multiple medical problems, EF 20% and a tumor/cancer given his overall status cannot be treated. Patient also has a rising white count. Patient understands all her prognosis is guarded. He is a no code. Did discuss with the patient that it at some point if he starts going downhill things get worse he should consider hospice. Patient agreeable to same. 20 minutes was spent for this
[2021-11-17] MEDS: FAMOTIDINE 20 MG TAB PO SCH (21:54)
[2021-11-18] MEDS: PIPERACILLIN-TAZOBACTAM 3.375 GM in SODIUM CHLORIDE 0.9% 100 ML IVPB SCH ×2 (00:48→08:23)
[2021-11-18] MEDS: DEXTROSE 5% IN WATER 1,000 ML with SODIUM BICARB (1 MEQ/ML) 100 ML IV SCH ×2 (00:48→04:34)
[2021-11-18 04:39] VITALS: BP 90/60; PULSE 104; TEMP 97.7
[2021-11-18] MEDS: METOPROLOL SUCCINATE (ER) 25 MG TAB.ER.24H PO SCH (08:23)
[2021-11-18] MEDS: FAMOTIDINE 20 MG TAB PO SCH (08:23)
[2021-11-18] MEDS: PSYLLIUM HUSK 100% 6 GM PACKET PO SCH (08:23)
--- NOTE | 2021-11-18 11:48 | P.PN ---
Subjective Progress Note Date: 11/18/21 Ostomy pink and patent with gas and formed stool in bag. Patient denies abdominal pain at this time. Objective - Vital Signs Vital signs: Vital Signs Temp 97.7 F 11/18/21 04:38 Pulse 104 H 11/18/21 04:38 Resp 16 11/18/21 04:38 BP 90/60 11/18/21 04:38 Pulse Ox 94 L 11/18/21 04:38 Intake & Output 11/17/21 11/18/21 11/18/21 18:59 06:59 18:59 Output Total 1 Balance -1 Weight 45.359 kg Output: Stool 1 Other: Voiding Method External Catheter External Catheter External Catheter - Constitutional General appearance: Present: cooperative, mild distress, thin - Gastrointestinal Gastrointestinal Comment(s): s/mild distention which is improved/no tenderness to palpation no RRG Ostomy is pink and patent with formed stool and gas in bag - Psychiatric Psychiatric: Present: A&O x's 3 - Labs CBC & Chem 7: 11/17/21 10:58 11/17/21 10:58 Labs: Abnormal Lab Results - Last 24 Hours (Table) 11/17/21 11/17/21 Range/Units 10:58 10:58 WBC 36.7 H (3.8-10.6) k/uL RBC 3.97 L (4.30-5.90) m/uL Hgb 11.7 L (13.0-17.5) gm/dL Hct 37.0 L (39.0-53.0) % Neutrophils # (Manual) 34.40 H (1.3-7.7) k/uL Lymphocytes # (Manual) 0.73 L (1.0-4.8) k/uL Monocytes # (Manual) 1.84 H (0-1.0) k/uL Sodium 129 L (137-145) mmol/L Potassium 3.1 L (3.5-5.1) mmol/L Chloride 108 H (98-107) mmol/L Carbon Dioxide 14 L (22-30) mmol/L BUN 8 L (9-20) mg/dL Creatinine 0.64 L (0.66-1.25) mg/dL Glucose 151 H (74-99) mg/dL Calcium 7.5 L (8.4-10.2) mg/dL Assessment and Plan Assessment: 81-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 S/P loop transverse colostomy Plan: Patient does have an increasing leukocytosis and is tachypnic today at the bedside.. The ostomy is functioning and he does not have significant abdominal pain or signs of peritonitis. The patient's is present at the bedside as well. I did have a discussion with him regarding patient's overall status. His clinical status was declining and prognosis is guarded. I did discuss with the patient and the patient's that he would be reasonable to consider hospice care. Given his multiple comorbidities and overall health status it is unlikely that his condition is survivable. The patient and his are agreeable to this and wanted to think about it and discuss this further.
--- NOTE | 2021-11-18 15:03 | P.DS ---
Providers Date of admission: 11/07/21 00:54 Expected date of discharge: 11/18/21 Attending physician: Darian Bobby Consults: 11/07/21 00:56 Consult Physician Routine Consulting Provider: Natalio Krueger Consult Reason/Comments: Possible fistula; stool smelling urine Do you want consulting provider notified?: Yes 11/07/21 05:39 Consult Physician Routine Consulting Provider: Meliton Watts Consult Reason/Comments: SBO vs tumor; possible fistula Do you want consulting provider notified?: Yes, Notify in am 11/08/21 20:33 Consult Physician Routine Consulting Provider: Pritesh Dale Consult Reason/Comments: Second opinion Do you want consulting provider notified?: Yes 11/09/21 17:13 Consult Physician Routine Consulting Provider: Abhilash Amin Consult Reason/Comments: Cardiac clearance Do you want consulting provider notified?: Yes Primary care physician: [facility] Course: Chief Complaint: Abdominal pain This is a very pleasant 81-year-old patient, who follows with Dr. Raymond Gimenez. Chronic stable medical conditions include CAD, CHF, right-sided talc pleurodesis, CHF EF of 25%, osteoarthritis, pacemaker. Patient now presents with intermittent abdominal pain. Has not had a bowel movement for quite a while. Sometimes has small pellet-like BMs sometimes loose stools. Denies any fever and chills. Appetite is just about okay. Has been losing weight. Patient and came to the floor was seen by the nurse to pass some stool through his penis. November 08: Patient is having significant stool output through his penis. Some abdominal discomfort. Spoke TO Dr. watts from general surgery. Hold off any surgery for now. Continue IV antibiotics. I concern is about obstruction. Also spoke to Dr. grey from urology. Discussed with patient. Understanding the risk for surgery is okay to proceed to the same. Would like a second opinion so I spoke to Dr. Dale from general surgery. He will see the patient t omorrow. Continue clear liquid diet. This morning CODE STATUS discussed with the patient. Was to be a DO NOT RESUSCITATE November 09: Spoke to the patient. Keen to proceed. Surgery. Dr. Cavanaugh spoke to the patient. Then he discussed with Dr. watts from surgery. This is made to proceed with diverting colostomy. This will be done by Dr. watts. Patient remains a liquid diet. Some abdominal discomfort. November 10: In bed. I spoke to Dr. watts earlier today. He'll be talking the patient and the daughter this afternoon. Continue liquid diet. Tentative plan for surgery this Monday. Antibiotics to continue. November 11: In bed. Awaiting surgery. No new issues. Some abdominal discomfort. Liquid diet. Surgery planned for tomorrow. On November 12, laparoscopic assisted loop transverse colostomy done. Flexible sigmoidoscopy and a core biopsy of the rectal mass and 12 cm from anal verge was done. November 15: Laying in bed. Tired. Clear liquid diet. at the bedside. Little output through the colostomy bag. November 16: In bed. Tired. Remains on clear liquid diet. Some liquid output to the colostomy bag. Passed flatus. at the bedside. Had a lengthy discussion with Dr. watts. Oral prognosis guarded. Elevated white count likely reactive from malignancy and procedure. Patient has no abdominal pain. INR 5.3. Vitamin K 2.5 mg by mouth given. November 17: In bed. Tired. Advance to full liquid. Some stool in the bag. Flatus present. Did discuss with the patient's overall guarded prognosis. Patient not a candidate for any treatment for his tumor. His also discussed about hospice down the road. He understands. No abdominal pain. November 18: Spoke to Dr. watts this morning. The both agree the patient not doing too well. Oral prognosis guarded. He has a rising white count. On IV Zosyn.. Patient will not be able to tolerate any surgical intervention. Possibly the tumor is a source of infection. An interventional cause more spread. I also spoke to the patient and his . Patient getting transferred to rehab. If he deteriorates into course hospice would be appropriate. Patient and agree. Questions answered. Midline being placed for antibiotic. Antibiotics to be ended on clinical grounds. Coumadin will be discontinued. Biopsy has come back showing invasive adenocarcinoma. Full liquid diet. That is some stool in the colostomy bag. Discussion and discharge planning more than 35 minutes Consultation: Dr. watts from general surgery Dr. Donte Adame from cardiology Past medical history to include: CAD, CHF EF 20%, hard of hearing, will be embolic, right pleural effusion with thoracentesis, and talc pleurodesis, 9096 pulmonary embolism, arthritis, pacemaker/AICD Social history: Lives with his . Has a walker. He smoked for many years. Was drinking 6-8 beers a day up to about 2 years ago. Family history: Reviewed, noncontributory to presentation Physical examination: VITAL SIGNS:, 97.9, 101, 16, 94/57, 97% room air GENERAL: reclining in bed, awake tired. [ Loss of muscle mass and loss of subcutaneous fat.] EYES: Pupils equal. Conjunctiva normal. HEENT: External appearance of nose and ears normal, oral cavity grossly normal hard of hearing. NECK: JVD not raised; masses not palpable. HEART: First and second heart sounds are normal; no edema. LUNGS: Respiratory rate normal; decreased breath sounds. ABDOMEN: Soft, colostomy bag with gas and some stool, liver spleen not palpable, no masses palpable. PSYCH: Answering questions appropriately. Mood affect normal. INVESTIGATIONS, reviewed in the clinical context: Urine culture: E. coli November 09: White count 9 hemoglobin 10.4 platelets 268 potassium 3.4 creatinine 0.61 albumin 1.8 Liver ultrasound: Lobulated contour respectively left lobe, right lobe small in size,. Distended gallbladder with multiple gallstones and sludge. Confirmation of cirrhotic liver. White count 14.6 hemoglobin 12.6 platelets 353 sodium 131 potassium 3.8 BUN 25 crit 0.58 Lactic acid 2.5 total bilirubin 1.6 albumin 2.5 UA positive for leukoesterase WBC Coronavirus [PCR]: Not detected EKG tracing personally reviewed by me-left bundle-branch block. T-wave changes. Computed tomography scan abdomen and pelvis without contrast: Heart is enlarged. Calcified pleural plaque at the right base. Numerous calcified gallstones. Moderate vascular calcification. Long-standing with no wall thickening of the distal sigmoid colon. Dilated large bowel with retained fecal material even fluid levels. No free air. L1 anterior wedging 25% T11 osteosclerotic focus measuring 1.5 cm. Possible cirrhosis. 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 Diverting colostomy performed on November 13. Minimal output. Full liquid diet. -Sigmoid colon mass: Invasive adenocarcinoma Possible abscess in the malignancy./Associated -Severe protein calorie malnutrition: Slow to respond Increase diet -Chronic medical debility -Chronic gait dysfunction, uses a walker Fall precautions -Chronic congestive heart failure from systolic dysfunction EF less than 20% Follow fluid status. Toprol-XL 25 mg a day -Moderate mitral regurgitation, moderate aortic valve sclerosis: Follow clinically -CAD Toprol-XL 25 mg a day -Choledocholithiasis, asymptomatic Follow clinically -Hyponatremia from decreased solute intake Follow labs -Chronic pulmonary embolism Currently on Coumadin. -Coumadin toxicity Vitamin K 2.5 mg. -Metabolic acidosis *Bicarbonate drip -COPD in a previous smoker DuoNeb as needed -Leukocytosis likely reactive from underlying malignancy and surgery. Tumor itself could have necrosis causing the same. IV Zosyn -Cirrhosis, cause unknown Currently hold off any further workup. -DO NOT RESUSCITATE. Disposition: [facility] - Discharge Summary New Discharge Prescriptions: New Psyllium Husk 100% [Metamucil Packet] 6 gm PO BID packet Famotidine [Pepcid] 20 mg PO BID tab Acetaminophen Tab [Tylenol] 650 mg PO Q6HR PRN tab PRN Reason: Mild Pain Or Fever > 100.5 Piperacillin-Tazobactam [Zosyn] 3.375 gm IVPB Q8HR each Continue Metoprolol Succinate (ER) [Toprol XL] 25 mg PO DAILY #30 tab.er.24h Discontinued Furosemide [Lasix] 40 mg PO DAILY Folic Acid 0.8 mg PO DAILY Spironolactone [Aldactone] 25 mg PO DAILY #60 tab Loperamide [Imodium] 2 mg PO QID PRN PRN Reason: Diarrhea Warfarin [Coumadin] 1.25 mg PO DAILY Discharge Medication List Metoprolol Succinate (ER) [Toprol XL] 25 mg PO DAILY #30 tab.er.24h 12/04/19 [Rx] Acetaminophen Tab [Tylenol] 650 mg PO Q6HR PRN tab 11/18/21 [Rx] Famotidine [Pepcid] 20 mg PO BID tab 11/18/21 [Rx] Piperacillin-Tazobactam [Zosyn] 3.375 gm IVPB Q8HR each 11/18/21 [Rx] Psyllium Husk 100% [Metamucil Packet] 6 gm PO BID packet 11/18/21 [Rx] Follow up Appointment(s)/Referral(s): Meliton Watts DO [Doctor of Osteopathic Medicine] - 1 Week Raymond Salmeron DO [Primary Care Provider] - 1-2 days Patient Instructions/Handouts: Colostomy Creation (DC) Activity/Diet/Wound Care/Special Instructions: Recommendations for Loop Colostomy Care on Transition to Rehab Last pouching system change: 11.17.2021 Mr Begum will transition with the following osotmy care supplies: Convatec one piece cut to fit with filter #[id number] (3) No sting prep pads (10) Ostomy powder (1) Mr Begum has a Transverse Loop Colostomy with red rubber tube across the bowel loop to hold in place - Please refer to Dr Watts for additional care Please change the entire pouching system every 3 -5 days or as directed by the surgeon Empty the pouching system when 1/2 to 1/3 full
== END 2021-11-18 18:19 | DRG 329 ==
LOC: EC 22:02 → SUPCPDRO 22:02 → 5NMEDONC 11-07 00:54
PROVIDERS: ADMIT Hospitalist; ATTEND Hospitalist
PROC: 0DBP0ZZ Excision of Rectum, Open Approach (ICD-10-PCS; principal; 2021-11-13)
PROC: 0D1L0Z4 Bypass Transverse Colon to Cutaneous, Open Approach (ICD-10-PCS; principal; 2021-11-13)
PROC: 0DJD8ZZ Inspection of Lower Intestinal Tract, Via Natural or Artificial Opening Endoscopic (ICD-10-PCS; 2021-11-13)
PROC: 05HA33Z Insertion of Infusion Device into Left Brachial Vein, Percutaneous Approach (ICD-10-PCS; 2021-11-18 15:40)
DX: C19 Malignant neoplasm of rectosigmoid junction (principal); E43 Unspecified severe protein-calorie malnutrition; K63.1 Perforation of intestine (nontraumatic); Z68.1 Body mass index [BMI] 19.9 or less, adult; E87.1 Hypo-osmolality and hyponatremia; E87.2 Acidosis; I27.82 Chronic pulmonary embolism; I50.22 Chronic systolic (congestive) heart failure; K92.0 Hematemesis; N32.1 Vesicointestinal fistula; N39.0 Urinary tract infection, site not specified; K56.609 Unspecified intestinal obstruction, unspecified as to partial versus complete obstruction; H91.90 Unspecified hearing loss, unspecified ear; I08.0 Rheumatic disorders of both mitral and aortic valves; I25.10 Atherosclerotic heart disease of native coronary artery without angina pectoris; I25.2 Old myocardial infarction; K80.50 Calculus of bile duct without cholangitis or cholecystitis without obstruction; K74.60 Unspecified cirrhosis of liver; J44.9 Chronic obstructive pulmonary disease, unspecified; I25.5 Ischemic cardiomyopathy; Z66 Do not resuscitate; Z20.822 Contact with and (suspected) exposure to COVID-19; I44.7 Left bundle-branch block, unspecified; K52.9 Noninfective gastroenteritis and colitis, unspecified; M19.90 Unspecified osteoarthritis, unspecified site; T45.515A Adverse effect of anticoagulants, initial encounter; R53.81 Other malaise; M54.9 Dorsalgia, unspecified; R26.9 Unspecified abnormalities of gait and mobility; Z79.01 Long term (current) use of anticoagulants; Z79.899 Other long term (current) drug therapy; Z87.01 Personal history of pneumonia (recurrent); Z87.891 Personal history of nicotine dependence; Z95.810 Presence of automatic (implantable) cardiac defibrillator; Z95.1 Presence of aortocoronary bypass graft; Z98.42 Cataract extraction status, left eye; Z98.41 Cataract extraction status, right eye; Z90.89 Acquired absence of other organs; Z83.79 Family history of other diseases of the digestive system; Z80.9 Family history of malignant neoplasm, unspecified; Z98.890 Other specified postprocedural states
CPT/HCPCS: 36410; 36415; 71046; 72192; 74176; 76705; 76937; 80048; 80053; 81001; 82150; 83605; 83690; 83735; 84484; 85025; 85610; 87077; 87086; 87186; 87635; 88305; 93005; 96374; 96375; 99285